=== PATIENT | male | born 1930 | race Caucasian/White ===

== ENCOUNTER 2018-07-06 18:17 | Inpatient (IN) | payer OTHER ==
[2018-07-06 18:39] VITALS: BMI 30.4
[2018-07-06] MEDS ORDERED: SODIUM CHLORIDE 2,722 ML IV ONE (19:01)
--- NOTE | 2018-07-06 20:15 | PDOC ---
History of Present Illness - General Chief Complaint: SIRS, Suspected/Possible Stated Complaint: WEAKNESS Time Seen by Provider: 07/06/18 19:00 - History of Present Illness Initial Comments: 07/06/18 20:16 88m with pmh of stroke, cholecystectomy, HTN, HLD, prewdiabetes?, BPH s/p circumcision due to phimosis and burt placement 1 month ago last changed 10 day ago, found by daughter to have generalized weakness today. Patient also complaining of protuberant abdomen. Past History - Past Medical History Allergies/Adverse Reactions: Allergies Allergy/AdvReac Type Severity Reaction Status Date / Time No Known Allergies Allergy Verified 07/06/18 18:39 Home Medications: Ambulatory Orders Enalapril Maleate 5 mg PO DAILY 07/06/18 Furosemide [Lasix] 40 mg PO DAILY 07/06/18 Paroxetine HCl [Paxil] 10 mg PO DAILY 07/06/18 Simvastatin 20 mg PO HS 07/06/18 Terazosin HCl 2 mg PO BID 07/06/18 CVA: Yes COPD: No HTN: Yes Hypercholesterolemia: Yes - Surgical History Cholecystectomy: Yes - Suicide/Smoking/Psychosocial Hx Smoking History: Former smoker Have you smoked in the past 12 months: No Information on smoking cessation initiated: No Hx Alcohol Use: No Drug/Substance Use Hx: No Review of Systems - Review of Systems Able to Perform ROS?: No (dementia) *Physical Exam - Vital Signs Last Vital Signs Temp Pulse Resp BP Pulse Ox 101.2 F H 110 H 20 108/55 L 95 07/06/18 18:26 07/06/18 18:26 07/06/18 18:26 07/06/18 18:26 07/06/18 18:26 - Physical Exam General Appearance: Yes: Appropriately Dressed, Obese. No: Apparent Distress HEENT: positive: EOMI, OPHELIA, Normal ENT Inspection Respiratory/Chest: positive: Lungs Clear, Normal Breath Sounds. negative: Chest Tender, Respiratory Distress Cardiovascular: positive: Tachycardia Gastrointestinal/Abdominal: positive: Normal Bowel Sounds, Flat, Soft, Protuberent, Distended. negative: Tender Male Genitalia: positive: other (inflammed glans, scant white discharge around penile skin folds, catheter in place. ) Musculoskeletal: positive: Normal Inspection. negative: CVA Tenderness Extremity: positive: Normal Capillary Refill, Normal Inspection Integumentary: positive: Normal Color, Dry, Warm Neurologic: positive: Alert, Normal Mood/Affect Moderate Sedation - Procedure Monitoring Vital Signs: Procedure Monitoring Vital Signs Temperature 101.2 F H 07/06/18 18:26 Pulse Rate 110 H 07/06/18 18:26 Respiratory Rate 20 07/06/18 18:26 Blood Pressure 108/55 L 07/06/18 18:26 O2 Sat by Pulse Oximetry (%) 95 07/06/18 18:26 ED Treatment Course - LABORATORY CBC & Chemistry Diagram: 07/06/18 20:11 07/06/18 20:11 - RADIOLOGY Radiology Studies Ordered: Category Date Time Status CHEST X-RAY PORTABLE* [RAD] Stat Radiology 07/06/18 19:01 Ordered Medical Decision Making - Medical Decision Making 07/06/18 20:30 88m with sepsis, probably from UTi. 07/06/18 22:12 Chemistry taking a long time to come back (issues with machine) but urine clearly shows signs or infection. Will treat complicated UTI (known urinary tract obstruction plus sepsis) with Meropenem and vancomycin to cover ESBL and MRSA. *DC/Admit/Observation/Transfer Diagnosis at time of Disposition: Sepsis - Discharge Dispostion Decision to Admit order: Yes - Referrals Referrals: Hakan Johnson MD [Primary Care Provider] - - Patient Instructions - Post Discharge Activity
[2018-07-06 20:32] LABS: VENOUS PC02 39.2 mmHg (38-52); VENOUS PH 7.4 (7.32-7.42); VENOUS PO2 32.8 mmHg (28-48)
[2018-07-06 20:37] LABS: BASO % 0.2 % (0-2.0); HEMATOCRIT 38.5 % (35.4-49); HEMOGLOBIN 13.1 GM/dL (11.7-16.9); MEAN CELL VOLUME 85.1 fl (80-96); MEAN PLT VOLUME 10.5 fl (7.5-11.1); MONO % 6.1 % (3.8-10.2); NEUT % 91.7 % (42.8-82.8); PLATELET COUNT 139 K/MM3 (134-434); RBC 4.52 M/mm3 (4.00-5.60); RDW 14.8 % (11.9-15.9)
--- NOTE | 2018-07-06 20:48 | PDOC ---
Attending Attestation - Resident Resident Name: MelaDiego - ED Attending Attestation I have performed the following: I have examined & evaluated the patient, The case was reviewed & discussed with the resident, I agree w/resident's findings & plan, Exceptions are as noted - HPI HPI: 07/06/18 20:47 The patient is a 88 year old male, with a significant PMH of stroke, cholecystectomy, hypertension, hyperlipidemia, prediabetes, BPH w/ burt, phimosis s/p circumcision, who presents to the emergency department with generalized weakness over the past 2-3 days. The patient denies chest pain, shortness of breath, headache and dizziness. Denies fever, chills, nausea, vomit, diarrhea and constipation. Denies dysuria, frequency, urgency and hematuria. Allergies: NKA - Physicial Exam PE: 07/06/18 20:48 GENERAL: Awake, alert, and fully oriented, in no acute distress. HEAD: No signs of trauma EYES: PERRLA, EOMI, sclera anicteric, conjunctiva clear ENT: Auricles normal inspection, hearing grossly normal, nares patent, oropharynx clear without exudates. Moist mucosa NECK: Nontender, no stepoffs, Normal ROM, supple, no lymphadenopathy, JVD, or masses LUNGS: Breath sounds equal, clear to auscultation bilaterally. No wheezes, and no crackles HEART: Regular rate and rhythm, normal S1 and S2, no murmurs, rubs or gallops ABDOMEN: Soft, nontender, normoactive bowel sounds. No guarding, no rebound. No masses EXTREMITIES: Normal range of motion, no edema. No clubbing or cyanosis. No cords, erythema, or tenderness NEUROLOGICAL: Cranial nerves II through XII intact. 5/5 strength and sensation in all extremities, Normal speech, normal gait, normal cerebellar function SKIN: Warm, Dry, normal turgor, no rashes or lesions noted. - Critical Care Time Total Critical Care Time: 60 Critical Care Statement: The care of this patient involved high complexity decision making to prevent further life threatening deterioration of the patient 's condition and/or to evaluate & treat vital organ system(s) failure or risk of failure. - Medical Decision Making 07/06/18 20:48 88 M with weakness, found to be febrile and tachycardic. Suspect urinary source as pt has indwelling burt. - Labs, cultures - CXR, UA - IVF, tylenol, abx UA + for UTI Trop 0.30, suspect 2/2 demand ischemia from sepsis
[2018-07-06 20:50] LABS: INR 1.15 (0.83-1.09); PROTHROMBIN TIME (PATIENT) 13.6 SEC (9.7-13.0)
[2018-07-06 20:52] LABS: ACTIVATED PTT 27.3 SECONDS (25.2-36.5)
[2018-07-06 20:55] LABS: URINE APPEARANCE SLCLOUDY; URINE BILIRUBIN NEGATIVE (<2.0 mg/dL); URINE COLOR LTYELLOW; URINE GLUCOSE (UA) NEGATIVE (NEGATIVE); URINE KETONE NEGATIVE (NEGATIVE); URINE LEUK ESTERASE 2+ (NEGATIVE); URINE NITRITE NEGATIVE (NEGATIVE); URINE PROTEIN NEGATIVE (NEGATIVE)
[2018-07-06 20:56] LABS: URINE HYALINE CAST 1 /lpf; URINE MUCUS RARE
[2018-07-06 21:06] LABS: ANISOCYTOSIS 1+; MACROCYTOSIS 1+
[2018-07-06 21:07] LABS: PLATELET ESTIMATE ADEQUATE
[2018-07-06] MEDS ORDERED: MEROPENEM 1 GM in DEXTROSE 5%-WATER 100 ML IVPB ONE (21:09)
[2018-07-06] MEDS ORDERED: VANCOMYCIN 1,250 MG in DEXTROSE 5%-WATER - 250 ML IVPB ONE (21:10)
[2018-07-06 22:16] LABS: ALBUMIN 3.2 g/dl (3.4-5.0); ANION GAP 8 MMOL/L (8-16); BLOOD UREA NITROGEN 43 mg/dL (7-18); CALCIUM 8.5 mg/dL (8.5-10.1); CHLORIDE 108 mmol/L (98-107); CO2 25 mmol/L (21-32); GLUCOSE,RANDOM 143 mg/dL (74-106); POTASSIUM 4.1 mmol/L (3.5-5.1); SODIUM 141 mmol/L (136-145)
[2018-07-06 22:17] LABS: ALK PHOS 95 U/L (45-117); BILIRUBIN,TOTAL 0.7 mg/dL (0.2-1); SGOT/AST 22 U/L (15-37); SGPT/ALT 29 U/L (13-61)
[2018-07-06] MEDS ORDERED: LACTATED RINGERS SOLUTION 1,000 ML/1,000 ML INFUS.BAG IV SCH ×2 (23:00→23:40)
--- NOTE | 2018-07-06 23:00 | PN ---
Teaching Attending Note Name of Resident: Harper Nettles ATTENDING PHYSICIAN STATEMENT I saw and evaluated the patient. I reviewed the resident's note and discussed the case with the resident. I agree with the resident's findings and plan as documented. SUBJECTIVE: Seen and examined; please refer to the resident note for further historical information. Briefly, this is a 88 y/o male presenting to the ER with family who have unfortunately left by the time I got down there. He is found to have sepsis likely 2/2 UTI with chronic burt (2/2 obstruction placed within the past month). He is AAO and conversational but is forgetful and a poor historian and he is unable to give any reasons as to why he is here, stating that his family wanted him to come in. He actually has no complaints and states that he feels 'fine.' In the ER he was given broad spectrum abx and aggressively hydrated which did improve his tachycardia. Urology was contacted by the ER and will see patient in the AM. We spoke to the family over the phone and they revealed that he had phimosis and several procedures and eventually opted for circumcision. 10 sys ROS done and negative aside from HPI PMH, PSH, Family hx, Social hx reviewed Medication reconciliation pending OBJECTIVE: VS, labs, imaging reviewed NAD, AAO, Resting comfortably in bed NC AT EOMI PERRLA Slightly tachy with regular rhythm no deepak mgr Lungs CTAB, w/ sym exp NT ND +BS; he has a large abdomen but states it always looks like this. CN2-12 wnl, no fnd Normal mood, appropriate affect CXR reviewed; final report pending EKG reviewed ASSESSMENT AND PLAN: Patient presents to the ER with sepsis 2/2 UTI 1) Sepsis 2/2 UTI -Hydrated in the ER; will continue him on fluids with LR @100cc an hour and closely monitor his fluid status. He will be given merrem BID and vancomycin with pharmacy to dose (per guidelines on up to date with UTI with obstruction in the setting of sepsis). He is at risk for resistent organisms given his burt, etc. Urology was called and will see patient tomorrow; likely will need burt exchange. 2) Elevated Troponin -No chest pain or SOB; likely 2/2 demand in the setting of sepsis with diminished renal function. Low suspicion this represents a primary ACS process. We will need to review his old records for any prior cardiac history, place him on telemetry, and trend his troponins. We will also check an echo to rule out any wma's, etc. Consider CV consult if warranted 3) Obstruction 2/2 BPH -Continue home meds; urology to see 4) Elevated Cr -Ascertain his baseline, but given septic presentation good chance this is AURELIA. Check urine cr, lytes and check GLADYS. Hydrated. Repeat BMp. 5) Hx Stroke -Continue home medications; no new sx. Remote 6) H
--- NOTE | 2018-07-07 02:39 | HP ---
CHIEF COMPLAINT:generalized weakness PCP:Dr. Carrillo HISTORY OF PRESENT ILLNESS: Patient is an 88 year old male with past medical history of CVA, HTN, HLD, pre- DM, BPH with burt (May 2018) and phimosis s/p circumcision (2 weeks ago), presented with generalized weakness for 1 day. Patient has no complaints, he reports that his daughter thinks he was weaker and so brought him in. As per the daughter, patient's Terazosin dose was increased recently and since then daughter noted patient had been "weaker", having a harder time walking the steps. Yesterday, patient had no strength to sit and stand up at all that he needed to call for help. Daughter tried to call Dr. Meza's office, as they had a follow-up procedure on the Jul 10 for his BPH, and was recommended to come to the ED. Upon arrival at the ED, patient was noted to be tachycardic and febrile. Patient denies any fever, chills, loss of appetite, headache, dizziness , nausea, vomiting, chest pain, SOB, palpitations, abdominal pain, diarrhea, numbness, tingling. ER course was notable for: (1)WBC 23, BUN/Cr 43/2, UA: 2+blood, 2+LE, 28 WBC (2)Trop 0.3, lactic acid 1.8 (3)Meropenem 1gm, Vanc 1250mg, IV NS [id number] given Recent Travel:denies PAST MEDICAL HISTORY: CVA (with residual left side deficit) HTN HLD pre-DM BPH with burt (May 2018) phimosis s/p circumcision (2 weeks ago) PAST SURGICAL HISTORY: carotid endarterectomy (2004) cholecystectomy circumcision (2018) Social History: Smoking: previous smoker, 1ppd >40 years, quit 30 years ago Alcohol:occasional Drugs: denies Lives with daughter and family Family History:noncontributory Allergies No Known Allergies Allergy (Verified 07/06/18 18:39) HOME MEDICATIONS: Home Medications Medication Instructions Recorded Enalapril Maleate 5 mg PO DAILY 07/06/18 Furosemide [Lasix] 40 mg PO DAILY 07/06/18 Paroxetine HCl [Paxil] 10 mg PO DAILY 07/06/18 Simvastatin 20 mg PO HS 07/06/18 Terazosin HCl 2 mg PO BID 07/06/18 REVIEW OF SYSTEMS CONSTITUTIONAL: generalized weakness Absent: fever, chills, diaphoresis, malaise, loss of appetite, weight change HEENT: Absent: rhinorrhea, nasal congestion, throat pain, throat swelling, difficulty swallowing, mouth swelling, ear pain, eye pain, visual changes CARDIOVASCULAR: Absent: chest pain, syncope, palpitations, irregular heart rate, lightheadedness , peripheral edema RESPIRATORY: Absent: cough, shortness of breath, dyspnea with exertion, orthopnea, wheezing, stridor, hemoptysis GASTROINTESTINAL: Absent: abdominal pain, abdominal distension, nausea, vomiting, diarrhea, constipation, melena, hematochezia GENITOURINARY: Absent: dysuria, frequency, urgency, hesitancy, hematuria, flank pain, genital pain MUSCULOSKELETAL: Absent: myalgia, arthralgia, joint swelling, back pain, neck pain SKIN: Absent: rash, itching, pallor HEMATOLOGIC/IMMUNOLOGIC: Absent: easy bleeding, easy bruising, lymphadenopathy, frequent infections ENDOCRINE: Absent: unexplained weight gain, unexplained weight loss, heat intolerance, cold intolerance NEUROLOGIC: Absent: headache, focal weakness or paresthesias, dizziness, unsteady gait, seizure, mental status changes, bladder or bowel incontinence PSYCHIATRIC: Absent: anxiety, depression, suicidal or homicidal ideation, hallucinations. PHYSICAL EXAMINATION Vital Signs - 24 hr 07/06/18 07/06/18 07/06/18 18:26 21:20 23:21 Temperature 101.2 F H 101.5 F H Pulse Rate 110 H Pulse Rate [ 95 H Left Radial] Respiratory 20 18 Rate Blood Pressure 108/55 L Blood Pressure 109/44 L [Left Arm] O2 Sat by Pulse 95 98 Oximetry (%) 07/07/18 02:16 Temperature 97.9 F Pulse Rate 95 H Pulse Rate [ Left Radial] Respiratory 18 Rate Blood Pressure 128/57 L Blood Pressure [Left Arm] O2 Sat by Pulse 100 Oximetry (%) GENERAL: Awake, alert, and fully oriented, in no acute distress. HEAD: Normal with no signs of trauma. EYES: PERRLA, EOMI, sclera anicteric, conjunctiva clear. EARS, NOSE, THROAT: Ears normal, oropharynx clear without exudates. Dry mucous membranes. NECK: Normal range of motion, supple without lymphadenopathy, JVD, or masses. LUNGS: +bibasilar crackles HEART: Regular rate and rhythm, normal S1 and S2 without murmur, rub or gallop. ABDOMEN: Soft, nontender, not distended, normoactive bowel sounds. MUSCULOSKELETAL: Normal range of motion at all joints. No bony deformities or tenderness. No CVA tenderness. UPPER EXTREMITIES: 2+ pulses, warm, well-perfused. No peripheral edema. LOWER EXTREMITIES: 2+ pulses, warm, well-perfused. No peripheral edema. NEUROLOGICAL: Cranial nerves II-XII intact. Motor strength 5/5, sensation intact. Normal speech. Gait not observed. PSYCHIATRIC: Cooperative. Good eye contact. Appropriate mood and affect. SKIN: Warm, dry, normal turgor, no rashes or lesions noted. Laboratory Results - last 24 hr 07/06/18 07/06/18 07/06/18 20:11 20:11 20:11 WBC 23.0 H RBC 4.52 Hgb 13.1 Hct 38.5 MCV 85.1 MCH 29.0 MCHC 34.0 RDW 14.8 Plt Count 139 MPV 10.5 Absolute Neuts (auto) 21.1 H Neutrophils % 91.7 H Neutrophils % (Manual) 90.0 H Band Neutrophils % 6.0 Lymphocytes % 2.0 L Lymphocytes % (Manual) 2.0 L Monocytes % 6.1 Monocytes % (Manual) 2 L Eosinophils % 0.0 Basophils % 0.2 Nucleated RBC % 0 Platelet Estimate Adequate Platelet Comment No clumping noted Anisocytosis 1+ Macrocytosis 1+ PT with INR 13.60 H INR 1.15 H PTT (Actin FS) 27.3 VBG pH 7.40 POC VBG pCO2 39.2 POC VBG pO2 32.8 Mixed VBG HCO3 24.0 Sodium Potassium Chloride Carbon Dioxide Anion Gap BUN Creatinine Creat Clearance w eGFR Random Glucose Lactic Acid Calcium Total Bilirubin AST ALT Alkaline Phosphatase Troponin I Total Protein Albumin Prealbumin Urine Color Urine Appearance Urine pH Ur Specific [place] Urine Protein Urine Glucose (UA) Urine Ketones Urine Blood Urine Nitrite Urine Bilirubin Urine Urobilinogen Ur Leukocyte Esterase Urine WBC (Auto) Urine RBC (Auto) Hyaline Casts Urine Mucus Influenza A (Rapid) Influenza B (Rapid) 07/06/18 07/06/18 07/06/18 20:11 20:11 20:11 WBC RBC Hgb Hct MCV MCH MCHC RDW Plt Count MPV Absolute Neuts (auto) Neutrophils % Neutrophils % (Manual) Band Neutrophils % Lymphocytes % Lymphocytes % (Manual) Monocytes % Monocytes % (Manual) Eosinophils % Basophils % Nucleated RBC % Platelet Estimate Platelet Comment Anisocytosis Macrocytosis PT with INR INR PTT (Actin FS) VBG pH POC VBG pCO2 POC VBG pO2 Mixed VBG HCO3 Sodium 141 Potassium 4.1 Chloride 108 H Carbon Dioxide 25 Anion Gap 8 BUN 43 H Creatinine 2.0 H Creat Clearance w eGFR 31.62 Random Glucose 143 H Lactic Acid 1.8 Calcium 8.5 Total Bilirubin 0.7 AST 22 ALT 29 Alkaline Phosphatase 95 Troponin I 0.30 H Total Protein 6.0 L Albumin 3.2 L Prealbumin Urine Color Urine Appearance Urine pH Ur Specific [place] Urine Protein Urine Glucose (UA) Urine Ketones Urine Blood Urine Nitrite Urine Bilirubin Urine Urobilinogen Ur Leukocyte Esterase Urine WBC (Auto) Urine RBC (Auto) Hyaline Casts Urine Mucus Influenza A (Rapid) Influenza B (Rapid) 07/06/18 07/07/18 07/07/18 20:27 00:11 00:29 WBC RBC Hgb Hct MCV MCH MCHC RDW Plt Count MPV Absolute Neuts (auto) Neutrophils % Neutrophils % (Manual) Band Neutrophils % Lymphocytes % Lymphocytes % (Manual) Monocytes % Monocytes % (Manual) Eosinophils % Basophils % Nucleated RBC % Platelet Estimate Platelet Comment Anisocytosis Macrocytosis PT with INR INR PTT (Actin FS) VBG pH POC VBG pCO2 POC VBG pO2 Mixed VBG HCO3 Sodium Potassium Chloride Carbon Dioxide Anion Gap BUN Creatinine Creat Clearance w eGFR Random Glucose Lactic Acid Calcium Total Bilirubin AST ALT Alkaline Phosphatase Troponin I Total Protein Albumin Prealbumin 23.6 Urine Color Ltyellow Urine Appearance Slcloudy Urine pH 5.0 Ur Specific [place] 1.012 Urine Protein Negative Urine Glucose (UA) Negative Urine Ketones Negative Urine Blood 2+ H Urine Nitrite Negative Urine Bilirubin Negative Urine Urobilinogen 2.0 Ur Leukocyte Esterase 2+ H Urine WBC (Auto) 28 Urine RBC (Auto) 2 Hyaline Casts 1 Urine Mucus Rare Influenza A (Rapid) Negative Influenza B (Rapid) Negative ASSESSMENT/PLAN: Patient is an 88 year old male with past medical history of CVA, HTN, HLD, pre- DM, BPH with burt (May 2018) and phimosis s/p circumcision (2 weeks ago), presented with generalized weakness for 1 day. #Sepsis likely 2/2 UTI -IV meropenem and IV vanc given at the ED. -In light of chronic burt, consider ESBL organisms -will continue meropenem and Vanc, renally dosed -Blood cultures -Urine cultures -ID (Dr. Cook) consulted. -Urology (Dr. Hernandez) consulted. -IV fluids -Tylenol 650mg PRN #Elevated troponin -Trop 0.3 -likely 2/2 demand ischemia -will trend trops and EKG #AURELIA vs CKD -BUN/Cr 43/2 -Unknown baseline kidney function -Will hold Enalapril and lasix -Avoid NSAIDs, Aminoglycosides, contrast agents -Renal/pelvic US #?hx of CHF -hold home Lasix 40mg -will do gentle hydration -daily weights -Echo #HTN:chronic -will hold Enalapril -continue to monitor BP #HLD -Continue home Simvastatin 20mg daily #FEN -IV LR -Electrolytes wnl, routine bmp monitoring -Sodium controlled diet #Prophylaxis -Heparin 5000units sq tid #Disposition -full code -admit to tele Visit type - Emergency Visit Emergency Visit: Yes ED Registration Date: 07/06/18 Care time: The patient presented to the Emergency Department on the above date and was hospitalized for further evaluation of their emergent condition. - New Patient This patient is new to me today: Yes Date on this admission: 07/09/18 - Critical Care Critical Care patient: No
[2018-07-07] MEDS: HEPARIN NA (PORCINE) 5,000 UNITS/ML 1ML VIAL SQ SCH ×3 (06:01→22:13)
[2018-07-07 08:11] LABS: BASO % 0.4 % (0-2.0); EOS % 0.3 % (0-4.5); HEMATOCRIT 34.9 % (35.4-49); HEMOGLOBIN 11.9 GM/dL (11.7-16.9); LYMPH % 5.3 % (8-40); MCH 29.2 pg (25.7-33.7); MCHC 34.1 g/dl (32.0-35.9); MEAN CELL VOLUME 85.9 fl (80-96); MEAN PLT VOLUME 10.3 fl (7.5-11.1); MONO % 7.7 % (3.8-10.2); NEUT % 86.3 % (42.8-82.8); PLATELET COUNT 116 K/MM3 (134-434); RBC 4.07 M/mm3 (4.00-5.60); RDW 14.8 % (11.9-15.9); WHITE BLOOD COUNT 19.5 K/mm3 (4.0-10.0)
--- NOTE | 2018-07-07 08:54 | PN ---
Progress Note (short form) - Note Progress Note: CBC, BMP 07/07/18 07:00 07/07/18 07:00 Vital Signs Period Temp Pulse Resp BP Sys/Leon Pulse Ox Last 24 Hr 97.9 F-101.5 F 82-95 18-25 96-128/44-64 98-100 S1S2 RRR lungs cta abd soft non tender burt with dark urine tr edema awake, alert oriented to place and self, very poor historian offers no new complaints admitted for increased fatigue and confusion due to urinary sepsis indwelling burt catheter fpr past 1 months circumcision 2 weeks ago cont ic fluids iv abx consult for burt care repeat troponin was increased so he was transferred to icu for monitoring does not have any complaints at present echo is unremarkable repeat troponin until downward trend, likely due to cardiac strain d/w daughter pt is full code
[2018-07-07 09:09] LABS: ALBUMIN 2.7 g/dl (3.4-5.0); ALK PHOS 76 U/L (45-117); ANION GAP 8 MMOL/L (8-16); BLOOD UREA NITROGEN 38 mg/dL (7-18); CALCIUM 7.9 mg/dL (8.5-10.1); CHLORIDE 110 mmol/L (98-107); CO2 23 mmol/L (21-32); CREATININE 1.8 mg/dL (0.55-1.3); GLUCOSE,RANDOM 106 mg/dL (74-106); MAGNESIUM 1.9 mg/dL (1.8-2.4); PHOSPHOROUS 2.3 mg/dL (2.5-4.9); SGOT/AST 40 U/L (15-37); SGPT/ALT 27 U/L (13-61); SODIUM 140 mmol/L (136-145); TOT PROT 5.2 g/dl (6.4-8.2)
[2018-07-07] MEDS ORDERED: PT OWN MED DRAWER 7, Y5N ONE (09:25)
[2018-07-07] MEDS: PARoxetine HCL 10 MG TABLET (FP) PO SCH (09:46)
[2018-07-07] MEDS ORDERED: MEROPENEM 1 GM in DEXTROSE 5%-WATER 100 ML IVPB SCH (10:00)
[2018-07-07] MEDS ORDERED: MEROPENEM 1 GM in DEXTROSE 5%-WATER 100 ML IVPB ONE (10:00)
--- NOTE | 2018-07-07 10:36 | ECHO ---
Name: LUISGISSELLE, JR Exam:Adult Echocardiogram Study Date: 07/07/2018 08:09 AM Age: 88 yrs Reason For Study: ELEVATED TROPS Height: 68 in Weight: 200 lb BSA: 2.0 m2 MMode/2D Measurements & Calculations IVSd: 1.1 cm Ao root diam: 3.2 cm LVIDd: 3.5 cm LA dimension: 2.6 cm LVIDs: 2.6 cm LVPWd: 1.0 cm EDV(Teich): 52.5 ml LAV (MOD-bp): 42.6 ml ESV(Teich): 24.0 ml Doppler Measurements & Calculations MV E max mauri: 113.0 cm/sec MV A max mauri: 111.6 cm/sec MV dec slope: 700.8 cm/sec2 MV E/A: 1.0 TR max mauri: 211.7 cm/sec Med Peak E' Mauri: 5.8 cm/sec TR max P.9 mmHg Med E/e': 19.6 Lat Peak E' Mauri: 6.5 cm/sec Lat E/e': 17.3 Left Ventricle There is mild concentric left ventricular hypertrophy. The left ventricle is hyperdynamic. Right Ventricle The right ventricle is normal in size and function. Atria Normal left and right atrial size and function. Mitral Valve There is mild mitral annular calcification. There is no mitral valve stenosis. There is no mitral regurgitation noted. Tricuspid Valve The tricuspid valve is normal in structure and function. There is mild tricuspid regurgitation. Aortic Valve There is mild aortic sclerosis.;. No hemodynamically significant valvular aortic stenosis. No aortic regurgitation is present. Pulmonic Valve The pulmonic valve is not well seen, but is grossly normal. There is no pulmonic valvular stenosis. T here is no pulmonic valvular regurgitation. Great Vessels The aortic root is normal size. Pericardium/Pleura There is no pericardial effusion. Interpretation Summary There is mild concentric left ventricular hypertrophy. The left ventricle is hyperdynamic. The right ventricle is normal in size and function. There is mild mitral annular calcification. There is mild tricuspid regurgitation. There is mild aortic sclerosis.; There is no pericardial effusion. MD Wadsworth *Jeffrey 07/07/2018 10:36 AM
--- NOTE | 2018-07-07 11:32 | EKG ---
Test Reason : Blood Pressure : / mmHG Vent. Rate : 094 BPM Atrial Rate : 094 BPM P-R Int : 194 ms QRS Dur : 112 ms QT Int : 378 ms P-R-T Axes : 081 -67 042 degrees QTc Int : 472 ms SINUS RHYTHM WITH PREMATURE SUPRAVENTRICULAR COMPLEXES LEFT AXIS DEVIATION LOW VOLTAGE QRS RIGHT BUNDLE BRANCH BLOCK INFERIOR INFARCT , AGE UNDETERMINED ABNORMAL ECG NO PREVIOUS ECGS AVAILABLE Confirmed by JEANNIE ROBBINS MD ([id number]) on 07/07/2018 11:32:21 AM Referred By: Confirmed By:JEANNIE ROBBINS MD
[2018-07-07 11:58] LABS: PLATELET ESTIMATE DECREASED
--- NOTE | 2018-07-07 12:19 | CON.ID ---
Consult Consult Specialty:: infectious diseases Referred by:: Reason for Consultation:: urosepsis,septic picture. ams - History of Present Illness Chief Complaint: weakness and lethargy History of Present Illness: 88 year old male with past medical history of CVA, HTN, HLD, pre-DM, BPH with burt (May 2018) and phimosis s/p circumcision (2 weeks ago), presented with generalized weakness for 1 day. Patient has no complaints, he reports that his daughter thinks he was weaker and so brought him in. As per the daughter, patient's Terazosin dose was increased recently and since then daughter noted patient had been "weaker", having a harder time walking the steps. Yesterday, patient had no strength to sit and stand up at all that he needed to call for help. at the ED, patient was noted to be tachycardic and febrile. Patient denies any fever, chills, loss of appetite, headache, dizziness, nausea, vomiting, chest pain, SOB, palpitations, abdominal pain, diarrhea, numbness, tingling. currently patient feels better on work up patient was noted to ahve very high wbc daughter in the room giving most of the history patient has indwelling catheter with darkish urine and also on work up tropinins were increased patient was started on meropenam patient was aggressively hydrated - History Source History Provided By: Patient, Family Member Limitations to Obtaining History: Poor Historian - Alcohol/Substance Use Hx Alcohol Use: No - Smoking History Smoking history: Former smoker Have you smoked in the past 12 months: No Home Medications - Allergies Allergies/Adverse Reactions: Allergies Allergy/AdvReac Type Severity Reaction Status Date / Time No Known Allergies Allergy Verified 07/06/18 18:39 - Home Medications Home Medications: Ambulatory Orders Enalapril Maleate 5 mg PO DAILY 07/06/18 Furosemide [Lasix] 40 mg PO DAILY 07/06/18 Paroxetine HCl [Paxil] 10 mg PO DAILY 07/06/18 Simvastatin 20 mg PO HS 07/06/18 Terazosin HCl 2 mg PO BID 07/06/18 Review of Systems - Review of Systems Constitutional: reports: No Symptoms Eyes: reports: No Symptoms HENT: reports: No Symptoms Neck: reports: No Symptoms Cardiovascular: reports: No Symptoms Respiratory: reports: No Symptoms Gastrointestinal: reports: No Symptoms Genitourinary: reports: No Symptoms Musculoskeletal: reports: No Symptoms Integumentary: reports: No Symptoms Neurological: reports: Incoordination, Weakness Endocrine: reports: No Symptoms Hematology/Lymphatic: reports: No Symptoms Psychiatric: reports: No Symptoms Physical Exam Vital Signs: Vital Signs Temperature 98.7 F 07/07/18 12:11 Pulse Rate 82 07/07/18 12:11 Respiratory Rate 20 07/07/18 12:11 Blood Pressure 100/55 L 07/07/18 12:11 O2 Sat by Pulse Oximetry (%) 100 07/07/18 08:00 Constitutional: Yes: Well Nourished, No Distress, Calm Cardiovascular: Yes: Regular Rate and Rhythm Respiratory: Yes: Regular, CTA Bilaterally Gastrointestinal: Yes: Normal Bowel Sounds, Soft Renal/: Yes: Burt Present Musculoskeletal: Yes: WNL Extremities: Yes: WNL Neurological: Yes: Alert, Oriented Psychiatric: Yes: Alert, Oriented Labs: CBC, BMP 07/07/18 07:00 07/07/18 07:00 Imaging - Results Chest X-ray: Report Reviewed, Image Reviewed Ultrasound: Report Reviewed, Image Reviewed Assessment/Plan Patient is an 88 year old male with past medical history of CVA, HTN, HLD, pre- DM, BPH with burt (May 2018) and phimosis s/p circumcision (2 weeks ago), presented with generalized weakness for 1 day. patient probably had symptoms due to sepsis due to uti as well as he very well could have prostatic infection all cx have been send and pending sepsis uti increaed troponin r/o prostatitis dehydration leukocytosis plan will start him on zosyn hydration as needed rest continue as per icu ct current mgmt monitor wbc cc 40 min
[2018-07-07 12:37] LABS: ANISOCYTOSIS 1+; MACROCYTOSIS 1+
[2018-07-07] MEDS ORDERED: PIPERACILLIN/TAZOBACTAM 2.25 GM VIAL IVPB ONE (13:38)
[2018-07-07] MEDS ORDERED: DEXTROSE 5%-WATER - 50 ML IVPB ONE (13:38)
[2018-07-07] MEDS: PIPERACILLIN/TAZOB 2.25 GM 2.25 GM in DEXTROSE 5%-WATER - 50 ML IVPB SCH (14:21)
[2018-07-07] MEDS: DEXTROSE 5%-0.45% SALINE 1,000 ML IV SCH (18:00)
--- NOTE | 2018-07-07 19:48 | CON.GU ---
Consult Consult Specialty:: Referred by:: medicine Reason for Consultation:: urinary retention, UTI - History of Present Illness Chief Complaint: urinary retention, UTI History of Present Illness: 88 year old male with chronic urinary retention with a burt who is scheduled for a TURP in the next few weeks presents to [facility] [place]ension [place] [id number]. patient has been transferred to ICU - Past Medical History Renal/: Yes: BPH, UTI, Other (urinary retention) - Alcohol/Substance Use Hx Alcohol Use: No - Smoking History Smoking history: Former smoker Have you smoked in the past 12 months: No Home Medications - Allergies Allergies/Adverse Reactions: Allergies Allergy/AdvReac Type Severity Reaction Status Date / Time No Known Allergies Allergy Verified 07/06/18 18:39 - Home Medications Home Medications: Ambulatory Orders Enalapril Maleate 5 mg PO DAILY 07/06/18 Furosemide [Lasix] 40 mg PO DAILY 07/06/18 Paroxetine HCl [Paxil] 10 mg PO DAILY 07/06/18 Simvastatin 20 mg PO HS 07/06/18 Terazosin HCl 2 mg PO BID 07/06/18 Review of Systems - Review of Systems Constitutional: reports: Fever, Lethargy, Malaise, Weakness Genitourinary: reports: Dysuria, Other (retention). denies: Flank Pain, Hematuria Physical Exam- Vital Signs: Vital Signs Temperature 98.5 F 07/07/18 18:44 Pulse Rate 83 07/07/18 18:44 Respiratory Rate 20 07/07/18 18:44 Blood Pressure 105/64 07/07/18 18:44 O2 Sat by Pulse Oximetry (%) 100 07/07/18 08:00 Renal/: Yes: Burt Present. No: Bladder Distention, CVA Tenderness - Left, CVA Tenderness - Right, Hematuria, Incontinence Labs: CBC, BMP 07/07/18 07:00 07/07/18 07:00 Imaging - Results Ultrasound: Report Reviewed Problem List - Problems (1) Urinary retention due to benign prostatic hyperplasia Assessment/Plan: burt catheter changed. continue abx. plan for TURP once infection is cleared with Dr. Thomas Code(s): N40.1 - BENIGN PROSTATIC HYPERPLASIA WITH LOWER URINARY TRACT SYMP; R33.8 - OTHER RETENTION OF URINE (2) UTI (urinary tract infection) due to urinary indwelling catheter Code(s): T83.511A - I/I REACT D/T INDWELLING URETHRAL CATHETER, INIT; N39.0 - URINARY TRACT INFECTION, SITE NOT SPECIFIED
[2018-07-07] MEDS: ACETAMINOPHEN 325 MG TABLET (FP) PO PRN (20:18)
[2018-07-07] MEDS: ATORVASTATIN CA 10 MG TABLET (FP) PO SCH (22:15)
[2018-07-08] MEDS ORDERED: PIPERACILLIN/TAZOBACTAM 2.25 GM VIAL IVPB ONE ×4 (02:33→21:18)
[2018-07-08] MEDS ORDERED: DEXTROSE 5%-WATER - 50 ML IVPB ONE ×4 (02:33→21:18)
[2018-07-08] MEDS: PIPERACILLIN/TAZOB 2.25 GM 2.25 GM in DEXTROSE 5%-WATER - 50 ML IVPB SCH ×5 (02:38→21:24)
[2018-07-08] MEDS: HEPARIN NA (PORCINE) 5,000 UNITS/ML 1ML VIAL SQ SCH ×3 (06:11→21:25)
[2018-07-08 06:53] LABS: ALBUMIN 2.6 g/dl (3.4-5.0); ALK PHOS 82 U/L (45-117); ANION GAP 8 MMOL/L (8-16); BILIRUBIN,TOTAL 1.1 mg/dL (0.2-1); BLOOD UREA NITROGEN 41 mg/dL (7-18); CALCIUM 7.8 mg/dL (8.5-10.1); CHLORIDE 106 mmol/L (98-107); CO2 24 mmol/L (21-32); CREATININE 2.1 mg/dL (0.55-1.3); GLUCOSE,RANDOM 122 mg/dL (74-106); POTASSIUM 3.7 mmol/L (3.5-5.1); SGOT/AST 42 U/L (15-37); SGPT/ALT 37 U/L (13-61); SODIUM 139 mmol/L (136-145); TOT PROT 5.1 g/dl (6.4-8.2)
[2018-07-08 07:03] LABS: BASO % 0.3 % (0-2.0); EOS % 1.9 % (0-4.5); HEMATOCRIT 33.2 % (35.4-49); HEMOGLOBIN 11.3 GM/dL (11.7-16.9); LYMPH % 5.4 % (8-40); MCH 28.9 pg (25.7-33.7); MCHC 33.9 g/dl (32.0-35.9); MEAN CELL VOLUME 85.3 fl (80-96); MEAN PLT VOLUME 10.3 fl (7.5-11.1); MONO % 6.2 % (3.8-10.2); NEUT % 86.2 % (42.8-82.8); PLATELET COUNT 124 K/MM3 (134-434); RDW 14.7 % (11.9-15.9); WHITE BLOOD COUNT 17.4 K/mm3 (4.0-10.0)
[2018-07-08] MEDS ORDERED: PT OWN MED DRAWER 7, Y5N ONE (09:09)
[2018-07-08] MEDS: PARoxetine HCL 10 MG TABLET (FP) PO SCH (09:13)
--- NOTE | 2018-07-08 10:16 | CON.CARD ---
Consult Consult Specialty:: cardiology Reason for Consultation:: elevated TNI; weakness - History of Present Illness Chief Complaint: Pt A&Ox3; no chest pain or dyspnea; feels weak. Pt's daugther is at bedside. History of Present Illness: he patient is an 88 year old male, with a significant PMH of stroke, cholecystectomy, hypertension, hyperlipidemia, prediabetes, BPH w/ burt, phimosis s/p circumcision, anxiety, who presents to the emergency department with generalized weakness over the past 2-3 days. Noted to have elevated TNI on admission. The patient denies chest pain, shortness of breath, headache and dizziness. Denies fever, chills, nausea, vomit, diarrhea and constipation. Denies dysuria, frequency, urgency and hematuria. Allergies: NKA - History Source History Provided By: Patient, Family Member, Medical Record Limitations to Obtaining History: No Limitations - Past Medical History ADMINISTRATIVE MANAGER: Yes: CVA Cardio/Vascular: Yes: HTN, Hyperlipdemia Renal/: Yes: BPH, UTI, Other (urinary retention) Psych: Yes: Anxiety - Alcohol/Substance Use Hx Alcohol Use: No - Smoking History Smoking history: Former smoker Have you smoked in the past 12 months: No Home Medications - Allergies Allergies/Adverse Reactions: Allergies Allergy/AdvReac Type Severity Reaction Status Date / Time No Known Allergies Allergy Verified 07/06/18 18:39 - Home Medications Home Medications: Ambulatory Orders Enalapril Maleate 5 mg PO DAILY 07/06/18 Furosemide [Lasix] 40 mg PO DAILY 07/06/18 Paroxetine HCl [Paxil] 10 mg PO DAILY 07/06/18 Simvastatin 20 mg PO HS 07/06/18 Terazosin HCl 2 mg PO BID 07/06/18 Family Disease History - Family Disease History Family History: Denies Review of Systems - Review of Systems Constitutional: reports: Weakness Eyes: reports: No Symptoms HENT: reports: No Symptoms Neck: reports: No Symptoms Cardiovascular: reports: No Symptoms Respiratory: reports: No Symptoms Gastrointestinal: reports: No Symptoms Genitourinary: reports: Incontinence, Urgency Breasts: reports: No Symptoms Reported Musculoskeletal: reports: Muscle Weakness Integumentary: reports: No Symptoms Neurological: reports: Weakness Endocrine: reports: No Symptoms Hematology/Lymphatic: reports: No Symptoms Psychiatric: reports: Anxiety - Risk Factors Known Risk Factors: Yes: Age, Hypercholesterolemia, Prior IN /Emb Stroke Vital Signs: Vital Signs Temperature 98.4 F 07/08/18 02:00 Pulse Rate 75 07/08/18 09:39 Respiratory Rate 20 07/08/18 09:39 Blood Pressure 101/51 L 07/08/18 09:39 O2 Sat by Pulse Oximetry (%) 100 07/08/18 08:38 Constitutional: Yes: Anxious Eyes: Yes: WNL HENT: Yes: WNL Neck: Yes: WNL Respiratory: Yes: WNL Gastrointestinal: Yes: Soft Renal/: Yes: Burt Present. No: Anuria Cardiovascular: Yes: Regular Rate and Rhythm JVD: No Carotid Bruit: No PMI: Non-Displaced Heart Sounds: Yes: S1, Split S2 Musculoskeletal: Yes: Muscle Weakness Extremities: Yes: Cool Edema: No Peripheral Pulses WNL: Yes Integumentary: Yes: WNL Neurological: Yes: Weakness Psychiatric: Yes: WNL - Other Data Labs, Other Data: CBC, BMP 07/08/18 05:30 07/08/18 05:30 INR, PTT INR 1.15 (0.83-1.09) H 07/06/18 20:11 Troponin, BNP 07/08/18 05:30 Troponin I 0.31 H Troponin, BNP 07/08/18 05:30 Troponin I 0.31 H Echo: Report Reviewed (Normal LVEF; mild LVH; mild TR) Ejection Fraction %: LVEF > or = 40 % Imaging - Results Chest X-ray: Image Reviewed (no acute pathology) EKG: Image Reviewed (NSR; RBBB; old IWMI; LAD) Problem List - Problems (1) Elevated troponin I level Assessment/Plan: TNI 0.3-->0.48-->0.54 since admission. No chest pain. EKG: no acute ST-T changes.; ? old IW [place].(though no mention of regional wall motion abnormalities on ECHO; normal LVEF; mild LVH. Sepsis is likely the principle contributer to pt's TNI elevation. F/u prior cardiac studies. Code(s): R74.8 - ABNORMAL LEVELS OF OTHER SERUM ENZYMES (2) UTI (urinary tract infection) due to urinary indwelling catheter Assessment/Plan: hx urinary retention (BPH: planned for TURP in the near future)--> F/u with urologist. Code(s): T83.511A - I/I REACT D/T INDWELLING URETHRAL CATHETER, INIT; N39.0 - URINARY TRACT INFECTION, SITE NOT SPECIFIED
[2018-07-08 11:50] LABS: CHOLESTEROL 98 mg/dL (50-200); HDL CHOLESTEROL 29 mg/dL (40-60); TRIGLYCERIDES 94 mg/dL (0-150)
--- NOTE | 2018-07-08 15:09 | PN ---
Progress Note, Physician Chief Complaint: He is much better and his family on bed side no fever or chills seen by ID abd has been changed - Current Medication List Current Medications: Active Medications Acetaminophen (Tylenol -) 650 mg PO Q6H PRN PRN Reason: PAIN OR FEVER Last Admin: 07/07/18 20:18 Dose: 650 mg Atorvastatin Calcium (Lipitor -) 10 mg PO HS [facility] Last Admin: 07/07/18 22:15 Dose: 10 mg Heparin Sodium (Porcine) (Heparin -) 5,000 unit SQ TID [facility] Last Admin: 07/08/18 06:11 Dose: 5,000 unit Piperacillin Sod/Tazobactam (Sod 2.25 gm/ Dextrose) 50 mls @ 100 mls/hr IVPB Q6H-IV [facility]; Protocol Last Admin: 07/08/18 09:13 Dose: 100 mls/hr Dextrose/Sodium Chloride (D5-1/2ns -) 1,000 mls @ 83 mls/hr IV ASDIR [facility] Last Admin: 07/07/18 18:00 Dose: 83 mls/hr Paroxetine HCl (Paxil -) 10 mg PO DAILY [facility] Last Admin: 07/08/18 09:13 Dose: 10 mg - Objective Vital Signs: Vital Signs Temperature 98.4 F 07/08/18 02:00 Pulse Rate 75 07/08/18 09:39 Respiratory Rate 20 07/08/18 09:39 Blood Pressure 101/51 L 07/08/18 09:39 O2 Sat by Pulse Oximetry (%) 100 07/08/18 08:38 Constitutional: Yes: No Distress Eyes: Yes: Conjunctiva Clear Neck: Yes: Supple Cardiovascular: Yes: Pulse Irregular Respiratory: Yes: Regular, CTA Bilaterally Gastrointestinal: Yes: Normal Bowel Sounds Extremities: Yes: WNL Neurological: Yes: WNL, Oriented Labs: CBC, BMP 07/08/18 05:30 07/08/18 05:30 INR, PTT INR 1.15 (0.83-1.09) H 07/06/18 20:11 Assessment/Plan admitted for increased fatigue and confusion due to urinary sepsis indwelling burt catheter fpr past 1 months circumcision 2 weeks ago cont ic fluids iv abx consult and ID seen does not have any complaints at present echo is unremarkable repeat troponin until downward trend, likely due to demand ischemia adb is changed d/w daughter pt is full code
--- NOTE | 2018-07-08 16:49 | PN ---
Progress Note, Physician History of Present Illness: Pt seen and examined, events noted. Labs/imaging/consultation reports reviewed. Today he states he feels better and has no specific complaints. Afebrile, wbc trending down. Daughter at bedside. - Current Medication List Current Medications: Active Medications Acetaminophen (Tylenol -) 650 mg PO Q6H PRN PRN Reason: PAIN OR FEVER Last Admin: 07/07/18 20:18 Dose: 650 mg Atorvastatin Calcium (Lipitor -) 10 mg PO HS [facility] Last Admin: 07/07/18 22:15 Dose: 10 mg Heparin Sodium (Porcine) (Heparin -) 5,000 unit SQ TID [facility] Last Admin: 07/08/18 15:22 Dose: 5,000 unit Piperacillin Sod/Tazobactam (Sod 2.25 gm/ Dextrose) 50 mls @ 100 mls/hr IVPB Q6H-IV [facility]; Protocol Last Admin: 07/08/18 15:22 Dose: 100 mls/hr Dextrose/Sodium Chloride (D5-1/2ns -) 1,000 mls @ 83 mls/hr IV ASDIR [facility] Last Admin: 07/07/18 18:00 Dose: 83 mls/hr Paroxetine HCl (Paxil -) 10 mg PO DAILY [facility] Last Admin: 07/08/18 09:13 Dose: 10 mg - Objective Vital Signs: Vital Signs Temperature 98.4 F 07/08/18 02:00 Pulse Rate 75 07/08/18 09:39 Respiratory Rate 20 07/08/18 09:39 Blood Pressure 101/51 L 07/08/18 09:39 O2 Sat by Pulse Oximetry (%) 100 07/08/18 08:38 Constitutional: Yes: No Distress, Calm Eyes: Yes: Conjunctiva Clear Cardiovascular: Yes: Regular Rate and Rhythm Respiratory: Yes: CTA Bilaterally Gastrointestinal: Yes: Normal Bowel Sounds, Soft, Abdomen, Obese Genitourinary: Yes: Burt Present (clear yellow urine draining) Integumentary: Yes: WNL Neurological: Yes: Alert, Oriented Labs: CBC, BMP 07/08/18 05:30 07/08/18 05:30 INR, PTT INR 1.15 (0.83-1.09) H 07/06/18 20:11 Microbiology 07/06/18 20:27 Urine - Urine - Catheterized Urine Culture - Preliminary Pseudomonas Species 07/06/18 20:15 Blood - Peripheral Venous Blood Culture - Preliminary NO GROWTH OBTAINED AFTER 24 HOURS, INCUBATION TO CONTINUE FOR 4 DAYS. 07/06/18 20:11 Blood - Peripheral Venous Blood Culture - Preliminary NO GROWTH OBTAINED AFTER 24 HOURS, INCUBATION TO CONTINUE FOR 4 DAYS. - ....Imaging X-ray: Report Reviewed Ultrasound: Report Reviewed Problem List - Problems (1) Sepsis Code(s): A41.9 - SEPSIS, UNSPECIFIED ORGANISM (2) UTI (urinary tract infection) due to urinary indwelling catheter Code(s): T83.511A - I/I REACT D/T INDWELLING URETHRAL CATHETER, INIT; N39.0 - URINARY TRACT INFECTION, SITE NOT SPECIFIED (3) Urinary retention due to benign prostatic hyperplasia Code(s): N40.1 - BENIGN PROSTATIC HYPERPLASIA WITH LOWER URINARY TRACT SYMP; R33.8 - OTHER RETENTION OF URINE Assessment/Plan 88 y.o. male with PMH of CVA with Lt hemiparesis, BPH/urinary obstruction with indwelling burt, HLD, HTN, phimosis s/p recent circumcision admitted with weakness/fever/leukocytosis Sepsis Complicated UTI/Indwelling burt Possible Prostatitis Urinary retention BPH ?AURELIA/CKD s/p CVA HTN HLD -- chart reviewed, results noted -- continue Zosyn -- Urine cultures +pseudomonas, Blood cultures neg -- wbc trending down, pt now afebrile -- repeat lactic acid -- continue monitor wbc trend, vitals -- Renal f/u
[2018-07-08] MEDS: ACETAMINOPHEN 325 MG TABLET (FP) PO PRN (18:07)
[2018-07-08] MEDS: DEXTROSE 5%-0.45% SALINE 1,000 ML IV SCH (18:07)
[2018-07-08] MEDS: ATORVASTATIN CA 10 MG TABLET (FP) PO SCH (21:27)
[2018-07-09] MEDS ORDERED: DEXTROSE 5%-WATER - 50 ML IVPB ONE ×4 (01:46→20:54)
[2018-07-09] MEDS ORDERED: PIPERACILLIN/TAZOBACTAM 2.25 GM VIAL IVPB ONE ×4 (01:46→20:54)
[2018-07-09] MEDS: PIPERACILLIN/TAZOB 2.25 GM 2.25 GM in DEXTROSE 5%-WATER - 50 ML IVPB SCH ×4 (02:07→21:00)
[2018-07-09] MEDS: ACETAMINOPHEN 325 MG TABLET (FP) PO PRN ×2 (04:00→23:55)
[2018-07-09] MEDS: HEPARIN NA (PORCINE) 5,000 UNITS/ML 1ML VIAL SQ SCH ×3 (05:46→21:00)
[2018-07-09] MEDS ORDERED: PT OWN MED DRAWER 7, Y5N ONE (10:29)
[2018-07-09] MEDS: PARoxetine HCL 10 MG TABLET (FP) PO SCH (10:34)
--- NOTE | 2018-07-09 11:47 | PN ---
Progress Note, Physician Chief Complaint: He is much better and his family on bed side no fever or chills on iv abx nad no arrythmia on tele - Current Medication List Current Medications: Active Medications Acetaminophen (Tylenol -) 650 mg PO Q6H PRN PRN Reason: PAIN OR FEVER Last Admin: 07/09/18 04:00 Dose: 650 mg Atorvastatin Calcium (Lipitor -) 10 mg PO HS [facility] Last Admin: 07/08/18 21:27 Dose: 10 mg Heparin Sodium (Porcine) (Heparin -) 5,000 unit SQ TID [facility] Last Admin: 07/09/18 05:46 Dose: 5,000 unit Piperacillin Sod/Tazobactam (Sod 2.25 gm/ Dextrose) 50 mls @ 100 mls/hr IVPB Q6H-IV [facility]; Protocol Last Admin: 07/09/18 08:48 Dose: 100 mls/hr Dextrose/Sodium Chloride (D5-1/2ns -) 1,000 mls @ 83 mls/hr IV ASDIR [facility] Last Admin: 07/08/18 18:07 Dose: 83 mls/hr Paroxetine HCl (Paxil -) 10 mg PO DAILY [facility] Last Admin: 07/09/18 10:34 Dose: 10 mg - Objective Vital Signs: Vital Signs Temperature 98.5 F 07/09/18 02:00 Pulse Rate 66 07/09/18 02:00 Respiratory Rate 22 H 07/09/18 02:00 Blood Pressure 104/68 07/09/18 02:00 O2 Sat by Pulse Oximetry (%) 100 07/08/18 21:00 Labs: CBC, BMP 07/08/18 05:30 07/08/18 05:30 INR, PTT INR 1.15 (0.83-1.09) H 07/06/18 20:11 Assessment/Plan admitted for increased fatigue and confusion due to urinary sepsis indwelling burt catheter fpr past 1 months circumcision 2 weeks ago cont ic fluids iv abx consult and ID seen does not have any complaints at present echo is unremarkable repeat troponin until downward trend, likely due to demand ischemia adb is changed d/w daughter pt is full code
--- NOTE | 2018-07-09 14:52 | PN ---
Progress Note, Physician History of Present Illness: stable improving weak - Current Medication List Current Medications: Active Medications Acetaminophen (Tylenol -) 650 mg PO Q6H PRN PRN Reason: PAIN OR FEVER Last Admin: 07/09/18 04:00 Dose: 650 mg Atorvastatin Calcium (Lipitor -) 10 mg PO HS [facility] Last Admin: 07/08/18 21:27 Dose: 10 mg Heparin Sodium (Porcine) (Heparin -) 5,000 unit SQ TID [facility] Last Admin: 07/09/18 05:46 Dose: 5,000 unit Piperacillin Sod/Tazobactam (Sod 2.25 gm/ Dextrose) 50 mls @ 100 mls/hr IVPB Q6H-IV [facility]; Protocol Last Admin: 07/09/18 08:48 Dose: 100 mls/hr Dextrose/Sodium Chloride (D5-1/2ns -) 1,000 mls @ 83 mls/hr IV ASDIR [facility] Last Admin: 07/08/18 18:07 Dose: 83 mls/hr Paroxetine HCl (Paxil -) 10 mg PO DAILY [facility] Last Admin: 07/09/18 10:34 Dose: 10 mg - Objective Vital Signs: Vital Signs Temperature 98.5 F 07/09/18 02:00 Pulse Rate 66 07/09/18 02:00 Respiratory Rate 22 H 07/09/18 02:00 Blood Pressure 104/68 07/09/18 02:00 O2 Sat by Pulse Oximetry (%) 100 07/08/18 21:00 Constitutional: Yes: No Distress, Calm Cardiovascular: Yes: S1, S2 Respiratory: Yes: Regular, CTA Bilaterally Gastrointestinal: Yes: Normal Bowel Sounds, Soft Genitourinary: Yes: Burt Present Musculoskeletal: Yes: WNL Extremities: Yes: WNL Neurological: Yes: Alert, Oriented Psychiatric: Yes: Alert, Oriented Labs: CBC, BMP 07/08/18 05:30 07/08/18 05:30 INR, PTT INR 1.15 (0.83-1.09) H 07/06/18 20:11 Assessment/Plan Patient is an 88 year old male with past medical history of CVA, HTN, HLD, pre- DM, BPH with burt (May 2018) and phimosis s/p circumcision (2 weeks ago), presented with generalized weakness for 1 day. sepsis uti increaed troponin r/o prostatitis dehydration leukocytosis plan continue abx await for urology plan rest as per the team patient improving
[2018-07-09] MEDS: DEXTROSE 5%-0.45% SALINE 1,000 ML IV SCH (20:36)
[2018-07-09] MEDS: ATORVASTATIN CA 10 MG TABLET (FP) PO SCH (21:00)
[2018-07-10] MEDS ORDERED: PIPERACILLIN/TAZOBACTAM 2.25 GM VIAL IVPB ONE ×4 (01:18→20:10)
[2018-07-10] MEDS ORDERED: DEXTROSE 5%-WATER - 50 ML IVPB ONE ×4 (01:18→20:10)
[2018-07-10] MEDS: PIPERACILLIN/TAZOB 2.25 GM 2.25 GM in DEXTROSE 5%-WATER - 50 ML IVPB SCH ×4 (03:15→20:46)
[2018-07-10] MEDS: HEPARIN NA (PORCINE) 5,000 UNITS/ML 1ML VIAL SQ SCH ×3 (05:40→23:08)
--- NOTE | 2018-07-10 08:47 | PN ---
Progress Note (short form) - Note Progress Note: CBC, BMP CBC, BMP 07/08/18 05:30 07/08/18 05:30 Vital Signs Period Temp Pulse Resp BP Sys/Leon Pulse Ox Last 24 Hr 98 F-98.8 F 71-83 22-25 108-141/59-81 94-95 S1S2 RRR lungs cta abd soft non tender burt with cloudy urine tr edema awake, alert oriented x3, mentation is much better offers no new complaints admitted for increased fatigue and confusion due to urinary sepsis-Pseudomonas in urine, blood cultures negative indwelling burt catheter fpr past 1 months circumcision 2 weeks ago cont ic fluids iv abx burt was changed after admission cont zosyn iv fluids physical therpay can transfer to floor GI/DVT prophylaxis pt is full code
[2018-07-10] MEDS ORDERED: PT OWN MED DRAWER 7, Y5N ONE (09:17)
--- NOTE | 2018-07-10 09:36 | PN ---
Progress Note, Physician Chief Complaint: Pt alemono; denies chest pain or dyapnse. History of Present Illness: he patient is an 88 year old male, with a significant PMH of stroke, cholecystectomy, hypertension, hyperlipidemia, prediabetes, BPH w/ burt, phimosis s/p circumcision, anxiety, who presents to the emergency department with generalized weakness over the past 2-3 days. Noted to have elevated TNI on admission. The patient denies chest pain, shortness of breath, headache and dizziness. Denies fever, chills, nausea, vomit, diarrhea and constipation. Denies dysuria, frequency, urgency and hematuria. Allergies: NKA - Current Medication List Current Medications: Active Medications Acetaminophen (Tylenol -) 650 mg PO Q6H PRN PRN Reason: PAIN OR FEVER Last Admin: 07/09/18 23:55 Dose: 650 mg Atorvastatin Calcium (Lipitor -) 10 mg PO HS [facility] Last Admin: 07/09/18 21:00 Dose: 10 mg Heparin Sodium (Porcine) (Heparin -) 5,000 unit SQ TID [facility] Last Admin: 07/10/18 05:40 Dose: 5,000 unit Piperacillin Sod/Tazobactam (Sod 2.25 gm/ Dextrose) 50 mls @ 100 mls/hr IVPB Q6H-IV [facility]; Protocol Last Admin: 07/10/18 03:15 Dose: 100 mls/hr Dextrose/Sodium Chloride (D5-1/2ns -) 1,000 mls @ 83 mls/hr IV ASDIR [facility] Last Admin: 07/09/18 20:36 Dose: Not Given Paroxetine HCl (Paxil -) 10 mg PO DAILY [facility] Last Admin: 07/09/18 10:34 Dose: 10 mg Ranitidine HCl (Zantac -) 150 mg PO DAILY [facility] - Objective Vital Signs: Vital Signs Temperature 98.8 F 07/10/18 02:00 Pulse Rate 83 07/10/18 02:00 Respiratory Rate 22 H 07/10/18 02:00 Blood Pressure 121/70 07/10/18 02:00 O2 Sat by Pulse Oximetry (%) 94 L 07/09/18 21:00 Constitutional: Yes: Calm Eyes: Yes: WNL Cardiovascular: Yes: S1, S2, S4 Labs: CBC, BMP 07/08/18 05:30 07/08/18 05:30 INR, PTT INR 1.15 (0.83-1.09) H 07/06/18 20:11 Problem List - Problems (1) Elevated troponin I level Assessment/Plan: TNI 0.3-->0.48-->0.54-->0.31 today. No chest pain. EKG: no acute ST-T changes.; ? old IW [place].(though no mention of regional wall motion abnormalities on ECHO; normal LVEF; mild LVH. Sepsis is likely the principle contributer to pt's TNI elevation. F/u prior cardiac (and cerebral: hx CVA) studies; if not done recently, will consider stress test when stable. Code(s): R74.8 - ABNORMAL LEVELS OF OTHER SERUM ENZYMES (2) UTI (urinary tract infection) due to urinary indwelling catheter Assessment/Plan: hx urinary retention (BPH: planned for TURP in the near future)--> F/u with urologist. Code(s): T83.511A - I/I REACT D/T INDWELLING URETHRAL CATHETER, INIT; N39.0 - URINARY TRACT INFECTION, SITE NOT SPECIFIED (3) Hyperlipidemia Assessment/Plan: On atorvastatin 10 mg daily; LDL < 70 mg/dL. Code(s): E78.5 - HYPERLIPIDEMIA, UNSPECIFIED
[2018-07-10] MEDS: PARoxetine HCL 10 MG TABLET (FP) PO SCH (10:00)
[2018-07-10] MEDS: RANITIDINE HCL 150 MG TABLET (FP) PO SCH (10:00)
--- NOTE | 2018-07-10 10:57 | PN ---
Progress Note, Physician History of Present Illness: he patient is an 88 year old male, with a significant PMH of stroke, cholecystectomy, hypertension, hyperlipidemia, prediabetes, BPH w/ burt, phimosis s/p circumcision, anxiety, who presents to the emergency department with generalized weakness over the past 2-3 days. Noted to have elevated TNI on admission. The patient denies chest pain, shortness of breath, headache and dizziness. Denies fever, chills, nausea, vomit, diarrhea and constipation. Denies dysuria, frequency, urgency and hematuria. - Current Medication List Current Medications: Active Medications Acetaminophen (Tylenol -) 650 mg PO Q6H PRN PRN Reason: PAIN OR FEVER Last Admin: 07/09/18 23:55 Dose: 650 mg Atorvastatin Calcium (Lipitor -) 10 mg PO HS [facility] Last Admin: 07/09/18 21:00 Dose: 10 mg Heparin Sodium (Porcine) (Heparin -) 5,000 unit SQ TID [facility] Last Admin: 07/10/18 05:40 Dose: 5,000 unit Piperacillin Sod/Tazobactam (Sod 2.25 gm/ Dextrose) 50 mls @ 100 mls/hr IVPB Q6H-IV [facility]; Protocol Last Admin: 07/10/18 09:58 Dose: 100 mls/hr Dextrose/Sodium Chloride (D5-1/2ns -) 1,000 mls @ 83 mls/hr IV ASDIR [facility] Last Admin: 07/09/18 20:36 Dose: Not Given Paroxetine HCl (Paxil -) 10 mg PO DAILY [facility] Last Admin: 07/10/18 10:00 Dose: 10 mg Ranitidine HCl (Zantac -) 150 mg PO DAILY [facility] Last Admin: 07/10/18 10:00 Dose: 150 mg - Objective Vital Signs: Vital Signs Temperature 98.8 F 07/10/18 02:00 Pulse Rate 83 07/10/18 02:00 Respiratory Rate 22 H 07/10/18 02:00 Blood Pressure 121/70 07/10/18 02:00 O2 Sat by Pulse Oximetry (%) 94 L 07/09/18 21:00 Eyes: Yes: WNL, Conjunctiva Clear, EOM Intact HENT: Yes: WNL, Atraumatic, Normocephalic Neck: Yes: WNL, Supple, Trachea Midline Cardiovascular: Yes: WNL, Regular Rate and Rhythm Respiratory: Yes: WNL, Regular, CTA Bilaterally Gastrointestinal: Yes: WNL, Normal Bowel Sounds Genitourinary: Yes: WNL Musculoskeletal: Yes: WNL Extremities: Yes: WNL Edema: No Integumentary: Yes: WNL ...Motor Strength: WNL Psychiatric: Yes: WNL Labs: CBC, BMP 07/08/18 05:30 07/08/18 05:30 INR, PTT INR 1.15 (0.83-1.09) H 07/06/18 20:11 Laboratory Tests 07/06/18 07/06/18 07/06/18 20:11 20:11 20:11 WBC 23.0 H RBC 4.52 Hgb 13.1 Hct 38.5 MCV 85.1 MCH 29.0 MCHC 34.0 RDW 14.8 Plt Count 139 MPV 10.5 Absolute Neuts (auto) 21.1 H Neutrophils % 91.7 H Neutrophils % (Manual) 90.0 H Band Neutrophils % 6.0 Lymphocytes % 2.0 L Lymphocytes % (Manual) 2.0 L Monocytes % 6.1 Monocytes % (Manual) 2 L Eosinophils % 0.0 Eosinophils % (Manual) Basophils % 0.2 Basophils % (Manual) Myelocytes % (Man) Promyelocytes % (Man) Blast Cells % (Manual) Nucleated RBC % 0 Metamyelocytes Hypochromia Platelet Estimate Adequate Platelet Comment No clumping noted Polychromasia Poikilocytosis Anisocytosis 1+ Microcytosis Macrocytosis 1+ Jeancarlos Cells PT with INR 13.60 H INR 1.15 H PTT (Actin FS) 27.3 VBG pH 7.40 POC VBG pCO2 39.2 POC VBG pO2 32.8 Mixed VBG HCO3 24.0 Sodium Potassium Chloride Carbon Dioxide Anion Gap BUN Creatinine Creat Clearance w eGFR Random Glucose Hemoglobin A1c % Lactic Acid Calcium Phosphorus Magnesium Total Bilirubin AST ALT Alkaline Phosphatase Creatine Kinase Creatine Kinase Index CK-MB (CK-2) Troponin I Total Protein Albumin Prealbumin Triglycerides Cholesterol Total LDL Cholesterol HDL Cholesterol Urine Color Urine Appearance Urine pH Ur Specific [place] Urine Protein Urine Glucose (UA) Urine Ketones Urine Blood Urine Nitrite Urine Bilirubin Urine Urobilinogen Ur Leukocyte Esterase Urine WBC (Auto) Urine RBC (Auto) Hyaline Casts Urine Mucus Ur Random Sodium Ur Random Potassium Ur Random Chloride Influenza A (Rapid) Influenza B (Rapid) 07/06/18 07/06/18 07/06/18 20:11 20:11 20:11 WBC RBC Hgb Hct MCV MCH MCHC RDW Plt Count MPV Absolute Neuts (auto) Neutrophils % Neutrophils % (Manual) Band Neutrophils % Lymphocytes % Lymphocytes % (Manual) Monocytes % Monocytes % (Manual) Eosinophils % Eosinophils % (Manual) Basophils % Basophils % (Manual) Myelocytes % (Man) Promyelocytes % (Man) Blast Cells % (Manual) Nucleated RBC % Metamyelocytes Hypochromia Platelet Estimate Platelet Comment Polychromasia Poikilocytosis Anisocytosis Microcytosis Macrocytosis [place] Cells PT with INR INR PTT (Actin FS) VBG pH POC VBG pCO2 POC VBG pO2 Mixed VBG HCO3 Sodium 141 Potassium 4.1 Chloride 108 H Carbon Dioxide 25 Anion Gap 8 BUN 43 H Creatinine 2.0 H Creat Clearance w eGFR 31.62 Random Glucose 143 H Hemoglobin A1c % Lactic Acid 1.8 Calcium 8.5 Phosphorus Magnesium Total Bilirubin 0.7 AST 22 ALT 29 Alkaline Phosphatase 95 Creatine Kinase Creatine Kinase Index CK-MB (CK-2) Troponin I 0.30 H Total Protein 6.0 L Albumin 3.2 L Prealbumin Triglycerides Cholesterol Total LDL Cholesterol HDL Cholesterol Urine Color Urine Appearance Urine pH Ur Specific [place] Urine Protein Urine Glucose (UA) Urine Ketones Urine Blood Urine Nitrite Urine Bilirubin Urine Urobilinogen Ur Leukocyte Esterase Urine WBC (Auto) Urine RBC (Auto) Hyaline Casts Urine Mucus Ur Random Sodium Ur Random Potassium Ur Random Chloride Influenza A (Rapid) Influenza B (Rapid) 07/06/18 07/07/18 07/07/18 20:27 00:11 00:11 WBC RBC Hgb Hct MCV MCH MCHC RDW Plt Count MPV Absolute Neuts (auto) Neutrophils % Neutrophils % (Manual) Band Neutrophils % Lymphocytes % Lymphocytes % (Manual) Monocytes % Monocytes % (Manual) Eosinophils % Eosinophils % (Manual) Basophils % Basophils % (Manual) Myelocytes % (Man) Promyelocytes % (Man) Blast Cells % (Manual) Nucleated RBC % Metamyelocytes Hypochromia Platelet Estimate Platelet Comment Polychromasia Poikilocytosis Anisocytosis Microcytosis Macrocytosis Je[place]arlos Cells PT with INR INR PTT (Actin FS) VBG pH POC VBG pCO2 POC VBG pO2 Mixed VBG HCO3 Sodium Potassium Chloride Carbon Dioxide Anion Gap BUN Creatinine Creat Clearance w eGFR Random Glucose Hemoglobin A1c % Lactic Acid 2.6 H* Calcium Phosphorus Magnesium Total Bilirubin AST ALT Alkaline Phosphatase Creatine Kinase Creatine Kinase Index CK-MB (CK-2) Troponin I Total Protein Albumin Prealbumin 23.6 Triglycerides Cholesterol Total LDL Cholesterol HDL Cholesterol Urine Color Ltyellow Urine Appearance Slcloudy Urine pH 5.0 Ur Specific [place] 1.012 Urine Protein Negative Urine Glucose (UA) Negative Urine Ketones Negative Urine Blood 2+ H Urine Nitrite Negative Urine Bilirubin Negative Urine Urobilinogen 2.0 Ur Leukocyte Esterase 2+ H Urine WBC (Auto) 28 Urine RBC (Auto) 2 Hyaline Casts 1 Urine Mucus Rare Ur Random Sodium Ur Random Potassium Ur Random Chloride Influenza A (Rapid) Influenza B (Rapid) 07/07/18 07/07/18 07/07/18 00:29 00:29 02:00 WBC RBC Hgb Hct MCV MCH MCHC RDW Plt Count MPV Absolute Neuts (auto) Neutrophils % Neutrophils % (Manual) Band Neutrophils % Lymphocytes % Lymphocytes % (Manual) Monocytes % Monocytes % (Manual) Eosinophils % Eosinophils % (Manual) Basophils % Basophils % (Manual) Myelocytes % (Man) Promyelocytes % (Man) Blast Cells % (Manual) Nucleated RBC % Metamyelocytes Hypochromia Platelet Estimate Platelet Comment Polychromasia Poikilocytosis Anisocytosis Microcytosis Macrocytosis Je[place] Cells PT with INR INR PTT (Actin FS) VBG pH POC VBG pCO2 POC VBG pO2 Mixed VBG HCO3 Sodium Potassium Chloride Carbon Dioxide Anion Gap BUN Creatinine Creat Clearance w eGFR Random Glucose Hemoglobin A1c % Lactic Acid Calcium Phosphorus Magnesium Total Bilirubin AST ALT Alkaline Phosphatase Creatine Kinase Creatine Kinase Index CK-MB (CK-2) Troponin I 0.48 H Total Protein Albumin Prealbumin Triglycerides Cholesterol Total LDL Cholesterol HDL Cholesterol Urine Color Urine Appearance Urine pH Ur Specific [place] Urine Protein Urine Glucose (UA) Urine Ketones Urine Blood Urine Nitrite Urine Bilirubin Urine Urobilinogen Ur Leukocyte Esterase Urine WBC (Auto) Urine RBC (Auto) Hyaline Casts Urine Mucus Ur Random Sodium 49 Ur Random Potassium 60.0 Ur Random Chloride 74 L Influenza A (Rapid) Negative Influenza B (Rapid) Negative 07/07/18 07/07/18 07/07/18 07:00 07:00 07:00 WBC 19.5 H RBC 4.07 Hgb 11.9 Hct 34.9 L MCV 85.9 MCH 29.2 MCHC 34.1 RDW 14.8 Plt Count 116 L MPV 10.3 Absolute Neuts (auto) 16.8 H Neutrophils % 86.3 H Neutrophils % (Manual) 87.0 H Band Neutrophils % 0.0 Lymphocytes % 5.3 L D Lymphocytes % (Manual) 5.0 L D Monocytes % 7.7 Monocytes % (Manual) 5 D Eosinophils % 0.3 D Eosinophils % (Manual) 0.0 Basophils % 0.4 Basophils % (Manual) 0.0 Myelocytes % (Man) 0 Promyelocytes % (Man) 0 Blast Cells % (Manual) 0 Nucleated RBC % 0 Metamyelocytes 0 Hypochromia 0 Platelet Estimate Decreased Platelet Comment Polychromasia 0 Poikilocytosis 1+ Anisocytosis 1+ Microcytosis 0 Macrocytosis 1+ Jeancarlos Cells 1+ PT with INR INR PTT (Actin FS) VBG pH POC VBG pCO2 POC VBG pO2 Mixed VBG HCO3 Sodium 140 Potassium 4.0 Chloride 110 H Carbon Dioxide 23 Anion Gap 8 BUN 38 H Creatinine 1.8 H Creat Clearance w eGFR 35.70 Random Glucose 106 Hemoglobin A1c % 6.2 Lactic Acid Calcium 7.9 L Phosphorus 2.3 L Magnesium 1.9 Total Bilirubin 1.0 AST 40 H ALT 27 Alkaline Phosphatase 76 Creatine Kinase 683 H Creatine Kinase Index 0.6 CK-MB (CK-2) 4.6 H Troponin I 0.54 H Total Protein 5.2 L Albumin 2.7 L Prealbumin Triglycerides Cholesterol Total LDL Cholesterol HDL Cholesterol Urine Color Urine Appearance Urine pH Ur Specific [place] Urine Protein Urine Glucose (UA) Urine Ketones Urine Blood Urine Nitrite Urine Bilirubin Urine Urobilinogen Ur Leukocyte Esterase Urine WBC (Auto) Urine RBC (Auto) Hyaline Casts Urine Mucus Ur Random Sodium Ur Random Potassium Ur Random Chloride Influenza A (Rapid) Influenza B (Rapid) 07/08/18 07/08/18 05:30 05:30 WBC 17.4 H RBC 3.90 L Hgb 11.3 L Hct 33.2 L MCV 85.3 MCH 28.9 MCHC 33.9 RDW 14.7 Plt Count 124 L MPV 10.3 Absolute Neuts (auto) 15.0 H Neutrophils % 86.2 H Neutrophils % (Manual) Band Neutrophils % Lymphocytes % 5.4 L Lymphocytes % (Manual) Monocytes % 6.2 Monocytes % (Manual) Eosinophils % 1.9 D Eosinophils % (Manual) Basophils % 0.3 Basophils % (Manual) Myelocytes % (Man) Promyelocytes % (Man) Blast Cells % (Manual) Nucleated RBC % 0 Metamyelocytes Hypochromia Platelet Estimate Platelet Comment Polychromasia Poikilocytosis Anisocytosis Microcytosis Macrocytosis Je[place] Cells PT with INR INR PTT (Actin FS) VBG pH POC VBG pCO2 POC VBG pO2 Mixed VBG HCO3 Sodium 139 Potassium 3.7 Chloride 106 Carbon Dioxide 24 Anion Gap 8 BUN 41 H Creatinine 2.1 H Creat Clearance w eGFR 29.89 Random Glucose 122 H Hemoglobin A1c % Lactic Acid Calcium 7.8 L Phosphorus Magnesium Total Bilirubin 1.1 H AST 42 H ALT 37 Alkaline Phosphatase 82 Creatine Kinase 386 H Creatine Kinase Index 0.5 CK-MB (CK-2) 2.0 Troponin I 0.31 H Total Protein 5.1 L Albumin 2.6 L Prealbumin Triglycerides 94 Cholesterol 98 Total LDL Cholesterol 53 HDL Cholesterol 29 L Urine Color Urine Appearance Urine pH Ur Specific [place] Urine Protein Urine Glucose (UA) Urine Ketones Urine Blood Urine Nitrite Urine Bilirubin Urine Urobilinogen Ur Leukocyte Esterase Urine WBC (Auto) Urine RBC (Auto) Hyaline Casts Urine Mucus Ur Random Sodium Ur Random Potassium Ur Random Chloride Influenza A (Rapid) Influenza B (Rapid) Assessment/Plan - Problems (1) Elevated troponin I level Assessment/Plan: TNI 0.3-->0.48-->0.54-->0.31 No chest pain. EKG: no acute ST-T changes.; ? old IW [place].(though no mention of regional wall motion abnormalities on ECHO; normal LVEF; mild LVH. Sepsis is likely the principle contributer to pt's TNI elevation. F/u prior cardiac (and cerebral: hx CVA) studies; if not done recently, will consider stress test when stable. Code(s): R74.8 - ABNORMAL LEVELS OF OTHER SERUM ENZYMES (2) UTI (urinary tract infection) due to urinary indwelling catheter Assessment/Plan: UTI wbc improving hx urinary retention (BPH: planned for TURP in the near future)--> F/u with urologist. Code(s): T83.511A - I/I REACT D/T INDWELLING URETHRAL CATHETER, INIT; N39.0 - URINARY TRACT INFECTION, SITE NOT SPECIFIED (3) Hyperlipidemia Assessment/Plan: On atorvastatin 10 mg daily; LDL < 70 mg/dL. Code(s): E78.5 - HYPERLIPIDEMIA, UNSPECIFIED cc time 36 min
--- NOTE | 2018-07-10 13:28 | PN ---
Progress Note, Physician History of Present Illness: continues to improve weakness daughter in room - Current Medication List Current Medications: Active Medications Acetaminophen (Tylenol -) 650 mg PO Q6H PRN PRN Reason: PAIN OR FEVER Last Admin: 07/09/18 23:55 Dose: 650 mg Atorvastatin Calcium (Lipitor -) 10 mg PO HS [facility] Last Admin: 07/09/18 21:00 Dose: 10 mg Heparin Sodium (Porcine) (Heparin -) 5,000 unit SQ TID [facility] Last Admin: 07/10/18 05:40 Dose: 5,000 unit Piperacillin Sod/Tazobactam (Sod 2.25 gm/ Dextrose) 50 mls @ 100 mls/hr IVPB Q6H-IV [facility]; Protocol Last Admin: 07/10/18 09:58 Dose: 100 mls/hr Dextrose/Sodium Chloride (D5-1/2ns -) 1,000 mls @ 83 mls/hr IV ASDIR [facility] Last Admin: 07/09/18 20:36 Dose: Not Given Paroxetine HCl (Paxil -) 10 mg PO DAILY [facility] Last Admin: 07/10/18 10:00 Dose: 10 mg Ranitidine HCl (Zantac -) 150 mg PO DAILY [facility] Last Admin: 07/10/18 10:00 Dose: 150 mg - Objective Vital Signs: Vital Signs Temperature 98.8 F 07/10/18 02:00 Pulse Rate 82 07/10/18 13:18 Respiratory Rate 22 H 07/10/18 13:18 Blood Pressure 127/68 07/10/18 13:18 O2 Sat by Pulse Oximetry (%) 95 07/10/18 09:00 Constitutional: Yes: No Distress, Calm Cardiovascular: Yes: S1, S2 Respiratory: Yes: Regular, CTA Bilaterally Gastrointestinal: Yes: Normal Bowel Sounds, Soft Genitourinary: Yes: Burt Present Musculoskeletal: Yes: WNL Extremities: Yes: WNL Labs: CBC, BMP 07/08/18 05:30 07/08/18 05:30 INR, PTT INR 1.15 (0.83-1.09) H 07/06/18 20:11 Assessment/Plan Patient is an 88 year old male with past medical history of CVA, HTN, HLD, pre- DM, BPH with burt (May 2018) and phimosis s/p circumcision (2 weeks ago), presented with generalized weakness for 1 day. sepsis uti increaed troponin r/o prostatitis dehydration leukocytosis plan continue abx await for urology plan rest as per the team patient improving all cx reports noted
[2018-07-10] MEDS ORDERED: DEXTROSE 5%-0.45% SALINE 1,000 ML IV SCH (20:25)
--- NOTE | 2018-07-10 20:28 | EKG ---
Test Reason : Blood Pressure : / mmHG Vent. Rate : 083 BPM Atrial Rate : 084 BPM P-R Int : 000 ms QRS Dur : 114 ms QT Int : 384 ms P-R-T Axes : 000 -64 045 degrees QTc Int : 451 ms UNDETERMINED RHYTHM POSSIBLE SINUS RHYTHM WITH SINUS ARRHYTHMIA ? MULTIFOCAL LEFT AXIS DEVIATION LOW VOLTAGE QRS RIGHT BUNDLE BRANCH BLOCK INFERIOR INFARCT (CITED ON OR BEFORE 07-JUL-2018) ABNORMAL ECG WHEN COMPARED WITH ECG OF 07-JUL-2018 00:47, SINUS ARRHYTHMIA IS SEEN Confirmed by JOSE ENGLE, FRANCE ([id number]) on 07/10/2018 8:27:51 PM Referred By: KARENA OSUNA DR Confirmed By:FRANCE GARCIA MD
[2018-07-10] MEDS: ATORVASTATIN CA 10 MG TABLET (FP) PO SCH (23:08)
[2018-07-11] MEDS ORDERED: PIPERACILLIN/TAZOBACTAM 2.25 GM VIAL IVPB ONE ×4 (01:39→21:33)
[2018-07-11] MEDS ORDERED: DEXTROSE 5%-WATER - 50 ML IVPB ONE ×4 (01:40→21:33)
[2018-07-11] MEDS: PIPERACILLIN/TAZOB 2.25 GM 2.25 GM in DEXTROSE 5%-WATER - 50 ML IVPB SCH ×4 (03:20→22:02)
[2018-07-11] MEDS: HEPARIN NA (PORCINE) 5,000 UNITS/ML 1ML VIAL SQ SCH ×2 (05:47→14:57)
[2018-07-11 10:05] LABS: BASO % 0.4 % (0-2.0); EOS % 1.5 % (0-4.5); HEMATOCRIT 34.1 % (35.4-49); HEMOGLOBIN 11.6 GM/dL (11.7-16.9); LYMPH % 7.5 % (8-40); MCH 29.4 pg (25.7-33.7); MCHC 34.1 g/dl (32.0-35.9); MEAN CELL VOLUME 86.4 fl (80-96); MEAN PLT VOLUME 10.5 fl (7.5-11.1); MONO % 10.2 % (3.8-10.2); NEUT % 80.4 % (42.8-82.8); PLATELET COUNT 171 K/MM3 (134-434); RBC 3.95 M/mm3 (4.00-5.60); RDW 14.7 % (11.9-15.9); WHITE BLOOD COUNT 12.6 K/mm3 (4.0-10.0)
[2018-07-11] MEDS: PARoxetine HCL 10 MG TABLET (FP) PO SCH (10:37)
[2018-07-11] MEDS: RANITIDINE HCL 150 MG TABLET (FP) PO SCH (10:37)
[2018-07-11 10:49] LABS: ALBUMIN 2.3 g/dl (3.4-5.0); ALK PHOS 110 U/L (45-117); ANION GAP 8 MMOL/L (8-16); BILIRUBIN,TOTAL 0.8 mg/dL (0.2-1); BLOOD UREA NITROGEN 28 mg/dL (7-18); CALCIUM 8.3 mg/dL (8.5-10.1); CHLORIDE 111 mmol/L (98-107); CO2 24 mmol/L (21-32); CREATININE 1.7 mg/dL (0.55-1.3); GLUCOSE,RANDOM 122 mg/dL (74-106); POTASSIUM 3.8 mmol/L (3.5-5.1); SGOT/AST 21 U/L (15-37); SGPT/ALT 34 U/L (13-61); SODIUM 142 mmol/L (136-145); TOT PROT 4.9 g/dl (6.4-8.2)
--- NOTE | 2018-07-11 11:23 | PN ---
Progress Note (short form) - Note Progress Note: feels better still with elevated WBC urine yellow burt in place will plan for TURP at end of week if can be cleared medically and cardiologically
--- NOTE | 2018-07-11 11:55 | PN ---
Progress Note (short form) - Note Progress Note: CBC, BMP 07/11/18 09:30 07/11/18 09:30 S1S2 RRR lungs cta abd soft non tender burt with cloudy urine tr edema awake, alert oriented x3, mentation is much better offers no new complaints admitted for increased fatigue and confusion due to urinary sepsis-Pseudomonas in urine, blood cultures negative indwelling burt catheter for past 1 months circumcision 2 weeks ago cont ic fluids iv abx burt was changed after admission cont zosyn dc iv fluids physical therpay GI/DVT prophylaxis will discuss cardiac clearance prior to tentative TURP dc planning possibly to STR based on current functional status pt is full code
[2018-07-11 11:57] LABS: PLATELET ESTIMATE ADEQUATE
--- NOTE | 2018-07-11 13:05 | PN ---
Progress Note, Physician History of Present Illness: stable daughter thinks patient is confused patient does not think so says he knows everything patient is not confused - Current Medication List Current Medications: Active Medications Acetaminophen (Tylenol -) 650 mg PO Q6H PRN PRN Reason: PAIN OR FEVER Atorvastatin Calcium (Lipitor -) 10 mg PO HS [facility] Last Admin: 07/10/18 23:08 Dose: 10 mg Heparin Sodium (Porcine) (Heparin -) 5,000 unit SQ TID [facility] Last Admin: 07/11/18 05:47 Dose: 5,000 unit Piperacillin Sod/Tazobactam (Sod 2.25 gm/ Dextrose) 50 mls @ 100 mls/hr IVPB Q6H-IV [facility]; Protocol Last Admin: 07/11/18 10:00 Dose: 100 mls/hr Paroxetine HCl (Paxil -) 10 mg PO DAILY [facility] Last Admin: 07/11/18 10:37 Dose: 10 mg Ranitidine HCl (Zantac -) 150 mg PO DAILY [facility] Last Admin: 07/11/18 10:37 Dose: 150 mg - Objective Vital Signs: Vital Signs Temperature 98 F 07/11/18 05:51 Pulse Rate 84 07/11/18 05:51 Respiratory Rate 20 07/11/18 05:51 Blood Pressure 126/60 07/11/18 05:51 O2 Sat by Pulse Oximetry (%) 97 07/10/18 21:00 Constitutional: Yes: No Distress, Calm Cardiovascular: Yes: S1, S2 Respiratory: Yes: On Nasal O2 Gastrointestinal: Yes: Normal Bowel Sounds, Soft Genitourinary: Yes: Burt Present Musculoskeletal: Yes: WNL Extremities: Yes: WNL Neurological: Yes: Alert, Oriented Psychiatric: Yes: Alert, Oriented Labs: CBC, BMP 07/11/18 09:30 07/11/18 09:30 INR, PTT INR 1.15 (0.83-1.09) H 07/06/18 20:11 Assessment/Plan Patient is an 88 year old male with past medical history of CVA, HTN, HLD, pre- DM, BPH with burt (May 2018) and phimosis s/p circumcision (2 weeks ago), presented with generalized weakness for 1 day. sepsis uti increaed troponin r/o prostatitis dehydration leukocytosis plan continue abx await for urology plan rest as per the team patient improving all cx reports noted
--- NOTE | 2018-07-11 17:00 | PN ---
Progress Note, Physician Chief Complaint: Pt samuel; denies chest pain; mild SOB + wheezing. Daughter is at bedside. History of Present Illness: he patient is an 88 year old white male, with a significant PMH of stroke, cholecystectomy, hypertension, hyperlipidemia, prediabetes, BPH w/ burt, phimosis s/p circumcision, anxiety, who presents to the emergency department with generalized weakness over the past 2-3 days. Noted to have elevated TNI on admission. The patient denies chest pain, shortness of breath, headache and dizziness. Denies fever, chills, nausea, vomit, diarrhea and constipation. Denies dysuria, frequency, urgency and hematuria. Allergies: NKA - Current Medication List Current Medications: Active Medications Acetaminophen (Tylenol -) 650 mg PO Q6H PRN PRN Reason: PAIN OR FEVER Atorvastatin Calcium (Lipitor -) 10 mg PO HS [facility] Last Admin: 07/10/18 23:08 Dose: 10 mg Piperacillin Sod/Tazobactam (Sod 2.25 gm/ Dextrose) 50 mls @ 100 mls/hr IVPB Q6H-IV [facility]; Protocol Last Admin: 07/11/18 15:00 Dose: 100 mls/hr Paroxetine HCl (Paxil -) 10 mg PO DAILY [facility] Last Admin: 07/11/18 10:37 Dose: 10 mg Ranitidine HCl (Zantac -) 150 mg PO DAILY [facility] Last Admin: 07/11/18 10:37 Dose: 150 mg - Objective Vital Signs: Vital Signs Temperature 98.2 F 07/11/18 14:00 Pulse Rate 83 07/11/18 14:00 Respiratory Rate 20 07/11/18 14:00 Blood Pressure 111/61 07/11/18 14:00 O2 Sat by Pulse Oximetry (%) 99 07/11/18 09:00 Constitutional: Yes: Anxious Eyes: Yes: WNL HENT: Yes: WNL Neck: Yes: WNL Cardiovascular: Yes: S1 (varies in intensity), S2 Gastrointestinal: Yes: Soft ...Rectal Exam: Yes: Deferred Genitourinary: No: Anuria Musculoskeletal: Yes: Muscle Weakness Extremities: Yes: Cool Edema: No Peripheral Pulses WNL: Yes Integumentary: Yes: WNL Neurological: Yes: Alert, Oriented, Weakness Psychiatric: Yes: WNL Labs: CBC, BMP 07/11/18 09:30 07/11/18 09:30 INR, PTT INR 1.15 (0.83-1.09) H 07/06/18 20:11 Abnormal Lab Results 07/11/18 07/11/18 09:30 09:30 WBC 12.6 H RBC 3.95 L Hgb 11.6 L Hct 34.1 L Absolute Neuts (auto) 10.2 H Lymphocytes % 7.5 L D Chloride 111 H BUN 28 H Creatinine 1.7 H Random Glucose 122 H Calcium 8.3 L Total Protein 4.9 L Albumin 2.3 L Abnormal Lab Results 07/11/18 07/11/18 09:30 09:30 WBC 12.6 H RBC 3.95 L Hgb 11.6 L Hct 34.1 L Absolute Neuts (auto) 10.2 H Lymphocytes % 7.5 L D Chloride 111 H BUN 28 H Creatinine 1.7 H Random Glucose 122 H Calcium 8.3 L B-Natriuretic Peptide 6567.3 H Total Protein 4.9 L Albumin 2.3 L - ....Imaging Chest X-ray: Pending, Image Reviewed Problem List - Problems (1) Elevated troponin I level Assessment/Plan: TNI 0.3-->0.48-->0.54-->0.31 today. No chest pain. EKG: no acute ST-T changes.; ? old IW [place].(though no mention of regional wall motion abnormalities on ECHO; normal LVEF; mild LVH. Sepsis is likely the principle contributer to pt's TNI elevation. Discussed pt with his daughter: until a few weeks ago, her father was walking up a flight of steps sveral times a day at home to the bathroom, and walking another set of steps down to a lower floor without chest pain or dyspnea. From a cardiac standpoint, ther are no absolute contraindications for Mr. Burch to undergo porstate surgery. Code(s): R74.8 - ABNORMAL LEVELS OF OTHER SERUM ENZYMES (2) UTI (urinary tract infection) due to urinary indwelling catheter Assessment/Plan: hx urinary retention (BPH: planned for TURP in the near future; cleared from cardiac perspective for the procedure.). F/u with urologist. Code(s): T83.511A - I/I REACT D/T INDWELLING URETHRAL CATHETER, INIT; N39.0 - URINARY TRACT INFECTION, SITE NOT SPECIFIED (3) Hyperlipidemia Assessment/Plan: On atorvastatin 10 mg daily; LDL < 70 mg/dL. Code(s): E78.5 - HYPERLIPIDEMIA, UNSPECIFIED (4) Acute on chronic diastolic CHF (congestive heart failure), NYHA class 1 Assessment/Plan: Pt received IV fluids; now mild SOB and wheezing. +JVD F/u BNP and CXR. BUN/Cr, electrolytes, daily weight, Is and Os. Addendum: Repeat CXR done now shows new congestive changes. IVF were stopped; give furosemide 40 mg IVP once. Code(s): I50.33 - ACUTE ON CHRONIC DIASTOLIC (CONGESTIVE) HEART FAILURE
[2018-07-11] MEDS ORDERED: FUROSEMIDE 40 MG/4 ML INJECTABLE VIAL IVPUSH ONE (21:27)
[2018-07-11 21:48] LABS: N-TERMINAL BNP 6567.3 pg/ml (5-450)
[2018-07-11] MEDS: ATORVASTATIN CA 10 MG TABLET (FP) PO SCH (22:02)
[2018-07-11] MEDS: ACETAMINOPHEN 325 MG TABLET (FP) PO PRN (22:02)
[2018-07-12] MEDS ORDERED: PIPERACILLIN/TAZOBACTAM 2.25 GM VIAL IVPB ONE ×4 (01:02→21:22)
[2018-07-12] MEDS ORDERED: DEXTROSE 5%-WATER - 50 ML IVPB ONE ×4 (01:03→21:22)
[2018-07-12] MEDS: PIPERACILLIN/TAZOB 2.25 GM 2.25 GM in DEXTROSE 5%-WATER - 50 ML IVPB SCH ×4 (03:38→22:13)
[2018-07-12] MEDS: RANITIDINE HCL 150 MG TABLET (FP) PO SCH (09:04)
[2018-07-12] MEDS: PARoxetine HCL 10 MG TABLET (FP) PO SCH (09:04)
--- NOTE | 2018-07-12 10:24 | PN ---
Progress Note, Physician History of Present Illness: he patient is an 88 year old male, with a significant PMH of stroke, cholecystectomy, hypertension, hyperlipidemia, prediabetes, BPH w/ burt, phimosis s/p circumcision, anxiety, who presents to the emergency department with generalized weakness over the past 2-3 days. Noted to have elevated TNI on admission. The patient denies chest pain, shortness of breath, headache and dizziness. Denies fever, chills, nausea, vomit, diarrhea and constipation. Denies dysuria, frequency, urgency and hematuria. - Current Medication List Current Medications: Active Medications Acetaminophen (Tylenol -) 650 mg PO Q6H PRN PRN Reason: PAIN OR FEVER Last Admin: 07/11/18 22:02 Dose: 650 mg Atorvastatin Calcium (Lipitor -) 10 mg PO HS [facility] Last Admin: 07/11/18 22:02 Dose: 10 mg Piperacillin Sod/Tazobactam (Sod 2.25 gm/ Dextrose) 50 mls @ 100 mls/hr IVPB Q6H-IV [facility]; Protocol Last Admin: 07/12/18 09:04 Dose: 100 mls/hr Paroxetine HCl (Paxil -) 10 mg PO DAILY [facility] Last Admin: 07/12/18 09:04 Dose: 10 mg Ranitidine HCl (Zantac -) 150 mg PO DAILY [facility] Last Admin: 07/12/18 09:04 Dose: 150 mg - Objective Vital Signs: Vital Signs Temperature 97.9 F 07/12/18 07:42 Pulse Rate 84 07/12/18 08:35 Respiratory Rate 24 H 07/12/18 08:35 Blood Pressure 105/59 L 07/12/18 08:35 O2 Sat by Pulse Oximetry (%) 96 07/11/18 21:00 Eyes: Yes: WNL, Conjunctiva Clear, EOM Intact HENT: Yes: WNL, Atraumatic, Normocephalic Neck: Yes: WNL, Supple, Trachea Midline Cardiovascular: Yes: WNL, Regular Rate and Rhythm Respiratory: Yes: WNL, Regular, CTA Bilaterally Gastrointestinal: Yes: WNL, Normal Bowel Sounds Genitourinary: Yes: WNL Musculoskeletal: Yes: WNL Extremities: Yes: WNL Edema: No Integumentary: Yes: WNL Neurological: Yes: WNL, Alert, Oriented ...Motor Strength: WNL Psychiatric: Yes: WNL Labs: CBC, BMP 07/11/18 09:30 07/11/18 09:30 INR, PTT INR 1.15 (0.83-1.09) H 07/06/18 20:11 Assessment/Plan - Problems (1) Elevated troponin I level Assessment/Plan: TNI 0.3-->0.48-->0.54-->0.31 today. No chest pain. EKG: no acute ST-T changes.; ? old IW [place].(though no mention of regional wall motion abnormalities on ECHO; normal LVEF; mild LVH. Sepsis is likely the principle contributer to pt's TNI elevation. Discussed pt with his daughter: until a few weeks ago, her father was walking up a flight of steps sveral times a day at home to the bathroom, and walking another set of steps down to a lower floor without chest pain or dyspnea. From a cardiac standpoint, ther are no absolute contraindications for Mr. Burch to undergo porstate surgery. Code(s): R74.8 - ABNORMAL LEVELS OF OTHER SERUM ENZYMES (2) UTI (urinary tract infection) due to urinary indwelling catheter Assessment/Plan: hx urinary retention (BPH: planned for TURP in the near future; cleared from cardiac perspective for the procedure.). F/u with urologist. Code(s): T83.511A - I/I REACT D/T INDWELLING URETHRAL CATHETER, INIT; N39.0 - URINARY TRACT INFECTION, SITE NOT SPECIFIED (3) Hyperlipidemia Assessment/Plan: On atorvastatin 10 mg daily; LDL < 70 mg/dL. Code(s): E78.5 - HYPERLIPIDEMIA, UNSPECIFIED (4) Acute on chronic diastolic CHF (congestive heart failure), NYHA class 1 Assessment/Plan: Pt received IV fluids; now mild SOB F/u BNP and CXR. BUN/Cr, electrolytes, daily weight, Is and Os. will strat lasix 40 PO QD Code(s): I50.33 - ACUTE ON CHRONIC DIASTOLIC (CONGESTIVE) HEART FAILURE
--- NOTE | 2018-07-12 10:44 | EKG ---
Test Reason : Blood Pressure : / mmHG Vent. Rate : 088 BPM Atrial Rate : 088 BPM P-R Int : 154 ms QRS Dur : 108 ms QT Int : 380 ms P-R-T Axes : 031 -62 024 degrees QTc Int : 459 ms SINUS RHYTHM WITH PREMATURE ATRIAL COMPLEXES LEFT AXIS DEVIATION LOW VOLTAGE QRS RIGHT BUNDLE BRANCH BLOCK INFERIOR INFARCT (CITED ON OR BEFORE 07-JUL-2018) ABNORMAL ECG WHEN COMPARED WITH ECG OF 10-JUL-2018 10:22, SINUS RHYTHM HAS REPLACED ATRIAL FIBRILLATION Confirmed by PATTY ENGLE, ANNE ([id number]) on 07/12/2018 10:43:52 AM Referred By: VICKEY OSUNA DRAlicja Confirmed By:ANNE BRAMBILA MD
[2018-07-12] MEDS: FUROSEMIDE 40 MG TABLET (FP) PO SCH (11:51)
--- NOTE | 2018-07-12 12:27 | PN ---
Progress Note (short form) - Note Progress Note: CBC, BMP 07/11/18 09:30 07/11/18 09:30 Vital Signs Period Temp Pulse Resp BP Sys/Leon Pulse Ox Last 24 Hr 97.9 F-98.2 F 83-86 20-24 105-126/56-69 96 S1S2 RRR lungs cta abd soft non tender burt with clear urine tr edema awake, alert oriented x3, mentation is much better c/o chest congestion was more confused yesterday-repeat head ct negative admitted for increased fatigue and confusion due to urinary sepsis-Pseudomonas in urine, blood cultures negative indwelling burt catheter for past 1 months s/p recent circumcision iv abx burt was changed after admission cont zosyn po lasix physical therpay GI/DVT prophylaxis will contact for TURP cardiology input appreciated pt is full code
--- NOTE | 2018-07-12 12:52 | PN ---
Progress Note, Physician History of Present Illness: patient stable daughter says he has breathing difficulty xray done shows retrocardiac infiltrate daughter says he is very weak - Current Medication List Current Medications: Active Medications Acetaminophen (Tylenol -) 650 mg PO Q6H PRN PRN Reason: PAIN OR FEVER Last Admin: 07/11/18 22:02 Dose: 650 mg Atorvastatin Calcium (Lipitor -) 10 mg PO HS [facility] Last Admin: 07/11/18 22:02 Dose: 10 mg Furosemide (Lasix -) 40 mg PO DAILY [facility] Last Admin: 07/12/18 11:51 Dose: 40 mg Piperacillin Sod/Tazobactam (Sod 2.25 gm/ Dextrose) 50 mls @ 100 mls/hr IVPB Q6H-IV [facility]; Protocol Last Admin: 07/12/18 09:04 Dose: 100 mls/hr Multi-Ingredient Ointment (Zinc Oxide) 1 applic TP BID [facility] Nystatin (Nystop Powder -) 1 applic TP DAILY [facility] Paroxetine HCl (Paxil -) 10 mg PO DAILY [facility] Last Admin: 07/12/18 09:04 Dose: 10 mg Ranitidine HCl (Zantac -) 150 mg PO DAILY [facility] Last Admin: 07/12/18 09:04 Dose: 150 mg - Objective Vital Signs: Vital Signs Temperature 98.1 F 07/12/18 09:30 Pulse Rate 83 07/12/18 11:12 Respiratory Rate 24 H 07/12/18 11:12 Blood Pressure 113/60 07/12/18 11:12 O2 Sat by Pulse Oximetry (%) 96 07/11/18 21:00 Constitutional: Yes: Calm, Mild Distress Cardiovascular: Yes: S1, S2 Respiratory: Yes: Regular, On Nasal O2 Gastrointestinal: Yes: Normal Bowel Sounds, Soft Genitourinary: Yes: Burt Present, Other Musculoskeletal: Yes: WNL Extremities: Yes: WNL Neurological: Yes: Alert, Oriented Psychiatric: Yes: Alert, Oriented Labs: CBC, BMP 07/11/18 09:30 07/11/18 09:30 INR, PTT INR 1.15 (0.83-1.09) H 07/06/18 20:11 - ....Imaging X-ray: Report Reviewed, Image Reviewed Assessment/Plan Patient is an 88 year old male with past medical history of CVA, HTN, HLD, pre- DM, BPH with burt (May 2018) and phimosis s/p circumcision (2 weeks ago), presented with generalized weakness for 1 day. sepsis uti increaed troponin r/o prostatitis dehydration leukocytosis plan continue abx await for urology plan rest as per the team patient improving all cx reports noted xray chest seen diuresis as per cardiac
[2018-07-12] MEDS ORDERED: FUROSEMIDE 40 MG/4 ML INJECTABLE VIAL IVPUSH ONE (13:00)
[2018-07-12] MEDS: ZINC OXIDE 20% TOPICAL OINTMENT 30 GM TUBE TP SCH ×2 (13:38→22:14)
[2018-07-12] MEDS: NYSTATIN POWDER 100,000 UNITS/GM - 15 GM TOPICAL POWDER TP SCH (13:38)
[2018-07-12] MEDS: ACETAMINOPHEN 325 MG TABLET (FP) PO PRN (14:24)
[2018-07-12] MEDS: ATORVASTATIN CA 10 MG TABLET (FP) PO SCH (22:13)
[2018-07-13] MEDS ORDERED: PIPERACILLIN/TAZOBACTAM 2.25 GM VIAL IVPB ONE ×4 (00:44→22:22)
[2018-07-13] MEDS ORDERED: DEXTROSE 5%-WATER - 50 ML IVPB ONE ×4 (00:44→22:22)
[2018-07-13] MEDS: PIPERACILLIN/TAZOB 2.25 GM 2.25 GM in DEXTROSE 5%-WATER - 50 ML IVPB SCH ×4 (02:07→22:41)
--- NOTE | 2018-07-13 09:43 | PN ---
Progress Note, Physician History of Present Illness: stable feels much better had dirrhoea - Current Medication List Current Medications: Active Medications Acetaminophen (Tylenol -) 650 mg PO Q6H PRN PRN Reason: PAIN OR FEVER Last Admin: 07/12/18 14:24 Dose: 650 mg Atorvastatin Calcium (Lipitor -) 10 mg PO HS [facility] Last Admin: 07/12/18 22:13 Dose: 10 mg Furosemide (Lasix -) 40 mg PO DAILY [facility] Last Admin: 07/12/18 11:51 Dose: 40 mg Piperacillin Sod/Tazobactam (Sod 2.25 gm/ Dextrose) 50 mls @ 100 mls/hr IVPB Q6H-IV [facility]; Protocol Last Admin: 07/13/18 02:07 Dose: 100 mls/hr Multi-Ingredient Ointment (Zinc Oxide) 1 applic TP BID [facility] Last Admin: 07/12/18 22:14 Dose: 1 applic Nystatin (Nystop Powder -) 1 applic TP DAILY [facility] Last Admin: 07/12/18 13:38 Dose: 1 applic Paroxetine HCl (Paxil -) 10 mg PO DAILY [facility] Last Admin: 07/12/18 09:04 Dose: 10 mg Ranitidine HCl (Zantac -) 150 mg PO DAILY [facility] Last Admin: 07/12/18 09:04 Dose: 150 mg - Objective Vital Signs: Vital Signs Temperature 98.1 F 07/13/18 06:00 Pulse Rate 83 07/13/18 06:00 Respiratory Rate 20 07/13/18 06:00 Blood Pressure 132/56 L 07/13/18 06:00 O2 Sat by Pulse Oximetry (%) 98 07/12/18 21:00 Constitutional: Yes: No Distress, Calm Cardiovascular: Yes: S1, S2 Respiratory: Yes: Regular, CTA Bilaterally Gastrointestinal: Yes: Normal Bowel Sounds, Soft Genitourinary: Yes: Burt Present Musculoskeletal: Yes: WNL Extremities: Yes: WNL Neurological: Yes: Alert, Oriented Psychiatric: Yes: Alert, Oriented Labs: CBC, BMP 07/11/18 09:30 07/11/18 09:30 INR, PTT INR 1.15 (0.83-1.09) H 07/06/18 20:11 Assessment/Plan Patient is an 88 year old male with past medical history of CVA, HTN, HLD, pre- DM, BPH with burt (May 2018) and phimosis s/p circumcision (2 weeks ago), presented with generalized weakness for 1 day. sepsis uti increaed troponin r/o prostatitis dehydration leukocytosis plan continue abx await for urology plan rest as per the team patient improving all cx reports noted xray chest seen diuresis as per cardiac await for cdiff result
--- NOTE | 2018-07-13 09:46 | PN ---
Progress Note (short form) - Note Progress Note: Vital Signs Period Temp Pulse Resp BP Sys/Leon Pulse Ox Last 24 Hr 97.7 F-98.2 F 83-100 20-28 113-134/56-68 96-98 S1S2 RRR lungs cta anteriorly abd soft non tender burt with clear urine tr edema awake, alert oriented x3, mentation is much better has had increased chest congestion with associated wheezing yesterday-feels better after iv lasix admitted for increased fatigue and confusion due to urinary sepsis-Pseudomonas in urine, blood cultures negative indwelling burt catheter for past 1 months s/p recent circumcision iv abx burt was changed after admission mild CHF cont zosyn po lasix physical therpay GI/DVT prophylaxis hold TURP while his resp.status stabilizes pt is full code
[2018-07-13] MEDS: PARoxetine HCL 10 MG TABLET (FP) PO SCH (10:28)
[2018-07-13] MEDS: RANITIDINE HCL 150 MG TABLET (FP) PO SCH (10:28)
[2018-07-13] MEDS: FUROSEMIDE 40 MG TABLET (FP) PO SCH (10:28)
--- NOTE | 2018-07-13 11:07 | PN ---
Progress Note (short form) - Note Progress Note: afebrile feels better no bladder spasms today burt draining yellow urine not medically cleared for TURP will postpone and plan for as outpt
[2018-07-13] MEDS: ZINC OXIDE 20% TOPICAL OINTMENT 30 GM TUBE TP SCH ×2 (15:23→22:41)
[2018-07-13] MEDS: NYSTATIN POWDER 100,000 UNITS/GM - 15 GM TOPICAL POWDER TP SCH (15:23)
[2018-07-13] MEDS: ACETAMINOPHEN 325 MG TABLET (FP) PO PRN ×2 (15:25→22:39)
[2018-07-13] MEDS: ATORVASTATIN CA 10 MG TABLET (FP) PO SCH (22:39)
[2018-07-14] MEDS ORDERED: PIPERACILLIN/TAZOBACTAM 2.25 GM VIAL IVPB ONE ×4 (00:59→21:47)
[2018-07-14] MEDS ORDERED: DEXTROSE 5%-WATER - 50 ML IVPB ONE ×4 (00:59→21:47)
[2018-07-14] MEDS: PIPERACILLIN/TAZOB 2.25 GM 2.25 GM in DEXTROSE 5%-WATER - 50 ML IVPB SCH ×4 (03:12→21:59)
[2018-07-14 07:48] LABS: BASO % 0.7 % (0-2.0); EOS % 3.5 % (0-4.5); HEMATOCRIT 35.8 % (35.4-49); HEMOGLOBIN 11.9 GM/dL (11.7-16.9); LYMPH % 7.9 % (8-40); MCH 28.2 pg (25.7-33.7); MCHC 33.1 g/dl (32.0-35.9); MEAN CELL VOLUME 85.2 fl (80-96); MEAN PLT VOLUME 10.5 fl (7.5-11.1); MONO % 5.4 % (3.8-10.2); NEUT % 82.5 % (42.8-82.8); PLATELET COUNT 253 K/MM3 (134-434); RDW 14.8 % (11.9-15.9); WHITE BLOOD COUNT 14.7 K/mm3 (4.0-10.0)
[2018-07-14 09:14] LABS: ALBUMIN 2.2 g/dl (3.4-5.0); ANION GAP 8 MMOL/L (8-16); BLOOD UREA NITROGEN 36 mg/dL (7-18); CALCIUM 8.5 mg/dL (8.5-10.1); CHLORIDE 109 mmol/L (98-107); CO2 26 mmol/L (21-32); CREATININE 1.9 mg/dL (0.55-1.3); GLUCOSE,RANDOM 154 mg/dL (74-106); POTASSIUM 3.7 mmol/L (3.5-5.1); SODIUM 143 mmol/L (136-145); TOT PROT 5.3 g/dl (6.4-8.2)
[2018-07-14 09:15] LABS: ALK PHOS 225 U/L (45-117); BILIRUBIN,TOTAL 0.7 mg/dL (0.2-1); SGOT/AST 34 U/L (15-37); SGPT/ALT 46 U/L (13-61)
[2018-07-14] MEDS: PARoxetine HCL 10 MG TABLET (FP) PO SCH (10:44)
[2018-07-14] MEDS: FUROSEMIDE 40 MG TABLET (FP) PO SCH (10:44)
[2018-07-14] MEDS: RANITIDINE HCL 150 MG TABLET (FP) PO SCH (10:44)
[2018-07-14] MEDS: NYSTATIN POWDER 100,000 UNITS/GM - 15 GM TOPICAL POWDER TP SCH (10:47)
[2018-07-14] MEDS: ZINC OXIDE 20% TOPICAL OINTMENT 30 GM TUBE TP SCH ×2 (10:47→22:03)
[2018-07-14 12:10] LABS: ANISOCYTOSIS 0; MACROCYTOSIS 0; PLATELET ESTIMATE NORMAL
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
--- NOTE | 2018-07-14 14:05 | PN ---
Progress Note, Physician History of Present Illness: patient stable left elbow redness pain present - Current Medication List Current Medications: Active Medications Acetaminophen (Tylenol -) 650 mg PO Q6H PRN PRN Reason: PAIN OR FEVER Last Admin: 07/13/18 22:39 Dose: 650 mg Atorvastatin Calcium (Lipitor -) 10 mg PO HS [facility] Last Admin: 07/13/18 22:39 Dose: 10 mg Furosemide (Lasix -) 40 mg PO DAILY [facility] Last Admin: 07/14/18 10:44 Dose: 40 mg Piperacillin Sod/Tazobactam (Sod 2.25 gm/ Dextrose) 50 mls @ 100 mls/hr IVPB Q6H-IV [facility]; Protocol Last Admin: 07/14/18 10:44 Dose: 100 mls/hr Multi-Ingredient Ointment (Zinc Oxide) 1 applic TP BID [facility] Last Admin: 07/14/18 10:47 Dose: 1 applic Nystatin (Nystop Powder -) 1 applic TP DAILY [facility] Last Admin: 07/14/18 10:47 Dose: 1 applic Paroxetine HCl (Paxil -) 10 mg PO DAILY [facility] Last Admin: 07/14/18 10:44 Dose: 10 mg Ranitidine HCl (Zantac -) 150 mg PO DAILY [facility] Last Admin: 07/14/18 10:44 Dose: 150 mg - Objective Vital Signs: Vital Signs Temperature 98.4 F 07/14/18 10:33 Pulse Rate 88 07/14/18 10:33 Respiratory Rate 18 07/14/18 10:33 Blood Pressure 146/52 L 07/14/18 10:33 O2 Sat by Pulse Oximetry (%) 98 07/13/18 21:00 Constitutional: Yes: Calm, Mild Distress Cardiovascular: Yes: S1, S2 Gastrointestinal: Yes: Normal Bowel Sounds, Soft Musculoskeletal: Yes: WNL Extremities: Yes: Erythema (left elbow) Neurological: Yes: Alert, Oriented Psychiatric: Yes: Alert, Oriented Labs: CBC, BMP 07/14/18 06:20 07/14/18 06:20 INR, PTT INR 1.15 (0.83-1.09) H 07/06/18 20:11 Assessment/Plan Patient is an 88 year old male with past medical history of CVA, HTN, HLD, pre- DM, BPH with burt (May 2018) and phimosis s/p circumcision (2 weeks ago), presented with generalized weakness for 1 day. sepsis uti increaed troponin r/o prostatitis dehydration leukocytosis plan continue abx await for urology plan rest as per the team patient improving all cx reports noted
[2018-07-14] MEDS: ATORVASTATIN CA 10 MG TABLET (FP) PO SCH (21:59)
[2018-07-14] MEDS: ACETAMINOPHEN 325 MG TABLET (FP) PO PRN (21:59)
[2018-07-15] MEDS ORDERED: PIPERACILLIN/TAZOBACTAM 2.25 GM VIAL IVPB ONE ×4 (01:33→22:24)
[2018-07-15] MEDS ORDERED: DEXTROSE 5%-WATER - 50 ML IVPB ONE ×4 (01:33→22:24)
[2018-07-15] MEDS: PIPERACILLIN/TAZOB 2.25 GM 2.25 GM in DEXTROSE 5%-WATER - 50 ML IVPB SCH ×4 (02:56→21:05)
--- NOTE | 2018-07-15 07:14 | PN ---
Progress Note, Physician Chief Complaint: Pt samuel; denies chest pain or shortness of breath. History of Present Illness: he patient is an 88 year old white male, with a significant PMH of stroke, cholecystectomy, hypertension, hyperlipidemia, prediabetes, BPH w/ burt, phimosis s/p circumcision, anxiety, who presents to the emergency department with generalized weakness over the past 2-3 days. Noted to have elevated TNI on admission. The patient denies chest pain, shortness of breath, headache and dizziness. Denies fever, chills, nausea, vomit, diarrhea and constipation. Denies dysuria, frequency, urgency and hematuria. Allergies: NKA - Current Medication List Current Medications: Active Medications Acetaminophen (Tylenol -) 650 mg PO Q6H PRN PRN Reason: PAIN OR FEVER Last Admin: 07/14/18 21:59 Dose: 650 mg Atorvastatin Calcium (Lipitor -) 10 mg PO HS [facility] Last Admin: 07/14/18 21:59 Dose: 10 mg Furosemide (Lasix -) 40 mg PO DAILY [facility] Last Admin: 07/14/18 10:44 Dose: 40 mg Piperacillin Sod/Tazobactam (Sod 2.25 gm/ Dextrose) 50 mls @ 100 mls/hr IVPB Q6H-IV [facility]; Protocol Last Admin: 07/15/18 02:56 Dose: 100 mls/hr Multi-Ingredient Ointment (Zinc Oxide) 1 applic TP BID [facility] Last Admin: 07/14/18 22:03 Dose: 1 applic Nystatin (Nystop Powder -) 1 applic TP DAILY [facility] Last Admin: 07/14/18 10:47 Dose: 1 applic Paroxetine HCl (Paxil -) 10 mg PO DAILY [facility] Last Admin: 07/14/18 10:44 Dose: 10 mg Ranitidine HCl (Zantac -) 150 mg PO DAILY [facility] Last Admin: 07/14/18 10:44 Dose: 150 mg - Objective Vital Signs: Vital Signs Temperature 98.3 F 07/15/18 06:25 Pulse Rate 79 07/15/18 06:25 Respiratory Rate 20 07/15/18 06:25 Blood Pressure 116/62 07/15/18 06:25 O2 Sat by Pulse Oximetry (%) 95 07/14/18 21:00 Constitutional: Yes: Calm Eyes: Yes: WNL HENT: Yes: WNL Neck: Yes: WNL Cardiovascular: Yes: S1, S2 (split) Respiratory: Yes: WNL Gastrointestinal: Yes: Soft ...Rectal Exam: Yes: Deferred Genitourinary: No: Anuria Breast(s): Yes: WNL Musculoskeletal: Yes: Muscle Weakness Extremities: Yes: Cool Edema: No Peripheral Pulses WNL: Yes Integumentary: Yes: Other (left elbow swollen, tender) Psychiatric: Yes: Alert, Oriented Labs: CBC, BMP 07/14/18 06:20 07/14/18 06:20 INR, PTT INR 1.15 (0.83-1.09) H 07/06/18 20:11 Problem List - Problems (1) Elevated troponin I level Assessment/Plan: TNI 0.3-->0.48-->0.54-->0.31 No chest pain. EKG: no acute ST-T changes.; ? old IW [place].(though no mention of regional wall motion abnormalities on ECHO; normal LVEF; mild LVH). Sepsis is likely the principle contributor to pt's TNI elevation. Discussed pt with his daughter: until a few weeks ago, her father was walking up a flight of steps several times a day at home to the bathroom, and walking another set of steps down to a lower floor without chest pain or dyspnea. From a cardiac standpoint, there are no absolute contraindications for Mr. Burch to undergo prostate surgery. Code(s): R74.8 - ABNORMAL LEVELS OF OTHER SERUM ENZYMES (2) UTI (urinary tract infection) due to urinary indwelling catheter Assessment/Plan: hx urinary retention (BPH: planned for TURP in the near future; cleared from cardiac perspective for the procedure). F/u with urologist. Code(s): T83.511A - I/I REACT D/T INDWELLING URETHRAL CATHETER, INIT; N39.0 - URINARY TRACT INFECTION, SITE NOT SPECIFIED (3) Hyperlipidemia Assessment/Plan: On atorvastatin 10 mg daily; LDL < 70 mg/dL (hx CVA). Code(s): E78.5 - HYPERLIPIDEMIA, UNSPECIFIED (4) Acute on chronic diastolic CHF (congestive heart failure), NYHA class 1 Assessment/Plan: Improving episode of acute CHF after diuretics. Code(s): I50.33 - ACUTE ON CHRONIC DIASTOLIC (CONGESTIVE) HEART FAILURE (5) Gout Assessment/Plan: give hx of gout; now with left elbow swelling and tenderness. F/u workup. Code(s): M10.9 - GOUT, UNSPECIFIED
--- NOTE | 2018-07-15 07:21 | PN ---
Progress Note, Physician - Current Medication List Current Medications: Active Medications Acetaminophen (Tylenol -) 650 mg PO Q6H PRN PRN Reason: PAIN OR FEVER Last Admin: 07/14/18 21:59 Dose: 650 mg Atorvastatin Calcium (Lipitor -) 10 mg PO HS [facility] Last Admin: 07/14/18 21:59 Dose: 10 mg Furosemide (Lasix -) 40 mg PO DAILY [facility] Last Admin: 07/14/18 10:44 Dose: 40 mg Piperacillin Sod/Tazobactam (Sod 2.25 gm/ Dextrose) 50 mls @ 100 mls/hr IVPB Q6H-IV [facility]; Protocol Last Admin: 07/15/18 02:56 Dose: 100 mls/hr Multi-Ingredient Ointment (Zinc Oxide) 1 applic TP BID [facility] [place] Last Admin: 07/14/18 22:03 Dose: 1 applic Nystatin (Nystop Powder -) 1 applic TP DAILY [facility] [place] Last Admin: 07/14/18 10:47 Dose: 1 applic Paroxetine HCl (Paxil -) 10 mg PO DAILY [facility] [place] Last Admin: 07/14/18 10:44 Dose: 10 mg Ranitidine HCl (Zantac -) 150 mg PO DAILY [facility] Last Admin: 07/14/18 10:44 Dose: 150 mg - Objective Vital Signs: Vital Signs Temperature 98.3 F 07/15/18 06:25 Pulse Rate 79 07/15/18 06:25 Respiratory Rate 20 07/15/18 06:25 Blood Pressure 116/62 07/15/18 06:25 O2 Sat by Pulse Oximetry (%) 95 07/14/18 21:00 Labs: CBC, BMP 07/14/18 06:20 07/14/18 06:20 INR, PTT INR 1.15 (0.83-1.09) H 07/06/18 20:11 Problem List - Problems (1) Elevated troponin I level Code(s): R74.8 - ABNORMAL LEVELS OF OTHER SERUM ENZYMES (2) UTI (urinary tract infection) due to urinary indwelling catheter Code(s): T83.511A - I/I REACT D/T INDWELLING URETHRAL CATHETER, INIT; N39.0 - URINARY TRACT INFECTION, SITE NOT SPECIFIED (3) Hyperlipidemia Code(s): E78.5 - HYPERLIPIDEMIA, UNSPECIFIED (4) Acute on chronic diastolic CHF (congestive heart failure), NYHA class 1 Code(s): I50.33 - ACUTE ON CHRONIC DIASTOLIC (CONGESTIVE) HEART FAILURE (5) Gout Code(s): M10.9 - GOUT, UNSPECIFIED
[2018-07-15] MEDS: RANITIDINE HCL 150 MG TABLET (FP) PO SCH (10:14)
[2018-07-15] MEDS: PARoxetine HCL 10 MG TABLET (FP) PO SCH (10:14)
[2018-07-15] MEDS: FUROSEMIDE 40 MG TABLET (FP) PO SCH (10:14)
--- NOTE | 2018-07-15 13:22 | PN ---
Progress Note, Physician History of Present Illness: Pt is alert, afebrile. Has Lt elbow pain but states it has decreased since yesterday. Has no other specific complaints. - Current Medication List Current Medications: Active Medications Acetaminophen (Tylenol -) 650 mg PO Q6H PRN PRN Reason: PAIN OR FEVER Last Admin: 07/14/18 21:59 Dose: 650 mg Atorvastatin Calcium (Lipitor -) 10 mg PO HS [facility] Last Admin: 07/14/18 21:59 Dose: 10 mg Furosemide (Lasix -) 40 mg PO DAILY [facility] Last Admin: 07/15/18 10:14 Dose: 40 mg Piperacillin Sod/Tazobactam (Sod 2.25 gm/ Dextrose) 50 mls @ 100 mls/hr IVPB Q6H-IV [facility]; Protocol Last Admin: 07/15/18 10:14 Dose: 100 mls/hr Multi-Ingredient Ointment (Zinc Oxide) 1 applic TP BID [facility] Last Admin: 07/14/18 22:03 Dose: 1 applic Nystatin (Nystop Powder -) 1 applic TP DAILY [facility] Last Admin: 07/14/18 10:47 Dose: 1 applic Paroxetine HCl (Paxil -) 10 mg PO DAILY [facility] Last Admin: 07/15/18 10:14 Dose: 10 mg Ranitidine HCl (Zantac -) 150 mg PO DAILY [facility] Last Admin: 07/15/18 10:14 Dose: 150 mg - Objective Vital Signs: Vital Signs Temperature 98.3 F 07/15/18 06:25 Pulse Rate 79 07/15/18 06:25 Respiratory Rate 20 07/15/18 06:25 Blood Pressure 116/62 07/15/18 06:25 O2 Sat by Pulse Oximetry (%) 95 07/14/18 21:00 Constitutional: Yes: No Distress, Calm Cardiovascular: Yes: Regular Rate and Rhythm Respiratory: Yes: Regular Gastrointestinal: Yes: Normal Bowel Sounds, Soft, Abdomen, Obese Genitourinary: Yes: Burt Present Musculoskeletal: Yes: Other (Lt elbow mild erythema/tenderness (improved as per pt)) Neurological: Yes: Alert Labs: CBC, BMP 07/14/18 06:20 07/14/18 06:20 INR, PTT INR 1.15 (0.83-1.09) H 07/06/18 20:11 Microbiology 07/12/18 15:30 Stool Clostridium difficile Antigen (CLARA) - Final 07/12/18 15:30 Stool Clostridium difficile Toxin Assay - Final 07/06/18 20:15 Blood - Peripheral Venous Blood Culture - Final NO GROWTH AFTER 5 DAYS INCUBATION 07/06/18 20:11 Blood - Peripheral Venous Blood Culture - Final NO GROWTH AFTER 5 DAYS INCUBATION 07/06/18 20:27 Urine - Urine - Catheterized Urine Culture - Final Pseudomonas Aeruginosa - ....Imaging X-ray: Report Reviewed (limited study; no obvious fracture) Problem List - Problems (1) Sepsis Code(s): A41.9 - SEPSIS, UNSPECIFIED ORGANISM (2) UTI (urinary tract infection) due to urinary indwelling catheter Code(s): T83.511A - I/I REACT D/T INDWELLING URETHRAL CATHETER, INIT; N39.0 - URINARY TRACT INFECTION, SITE NOT SPECIFIED (3) Urinary retention due to benign prostatic hyperplasia Code(s): N40.1 - BENIGN PROSTATIC HYPERPLASIA WITH LOWER URINARY TRACT SYMP; R33.8 - OTHER RETENTION OF URINE Assessment/Plan 88 y.o. male with PMH of CVA with Lt hemiparesis, BPH/urinary obstruction with indwelling burt, HLD, HTN, phimosis s/p recent circumcision admitted with weakness/fever/leukocytosis Sepsis - resolved Lt elbow erythema/edema - ? cellulitis Complicated UTI/Indwelling burt Possible Prostatitis Urinary retention BPH CKD s/p CVA HTN HLD -- elbow xray results noted -- continue Zosyn for now -- consider MRI if no improvement in Lt elbow edema/erythema -- repeat cbc as wbc increased from previous pt currently afebrile, without distress
--- NOTE | 2018-07-15 13:43 | PN ---
Progress Note (short form) - Note Progress Note: CBC, BMP 07/14/18 06:20 07/14/18 06:20 Vital Signs Period Temp Pulse Resp BP Sys/Leon Pulse Ox Last 24 Hr 97.2 F-98.3 F 76-792 0-20 116-132/53-79 95 S1S2 RRR lungs cta abd soft non tender burt with clear urine tr edema awake, alert oriented x3, mentation is much better left elbow, slight erythema, no warmth, increased pain on extension and flexion dyspnea, cough resolved feels well admitted for increased fatigue and confusion due to urinary sepsis-Pseudomonas in urine, blood cultures negative indwelling burt catheter for past 1 months s/p recent circumcision iv abx burt was changed after admission mild CHF-resolved left elbow mild cellulitis vs. bursitis cont zosyn for now Day #6 po lasix physical therpay GI/DVT prophylaxis d/w and daughter, will defer urologic procedure as outpt and plan for STR early next week if ok with id add meloxicam for elbow
[2018-07-15] MEDS: NYSTATIN POWDER 100,000 UNITS/GM - 15 GM TOPICAL POWDER TP SCH (14:54)
[2018-07-15] MEDS: CELECOXIB 100 MG CAPSULE PO SCH ×2 (14:54→22:55)
[2018-07-15] MEDS: ZINC OXIDE 20% TOPICAL OINTMENT 30 GM TUBE TP SCH ×2 (14:54→23:06)
--- NOTE | 2018-07-15 18:40 | PN ---
Progress Note (short form) - Note Progress Note: Coverage for Dr Tania Cloud Chief Complaint: Events noted, notes reviewed, denies any chest pain or dyspnea History of Present Illness: Seen and examined. Events noted, notes reviewed, denies any chest pain or dyspnea - Current Medication List Current Medications Acetaminophen (Tylenol -) 650 mg PO Q6H PRN PRN Reason: PAIN OR FEVER Last Admin: 07/14/18 21:59 Dose: 650 mg Atorvastatin Calcium (Lipitor -) 10 mg PO HS [facility] Last Admin: 07/14/18 21:59 Dose: 10 mg Celecoxib (Celebrex -) 100 mg PO BID [facility] Last Admin: 07/15/18 14:54 Dose: 100 mg Furosemide (Lasix -) 40 mg PO DAILY [facility] Last Admin: 07/15/18 10:14 Dose: 40 mg Piperacillin Sod/Tazobactam (Sod 2.25 gm/ Dextrose) 50 mls @ 100 mls/hr IVPB Q6H-IV [facility]; Protocol Last Admin: 07/15/18 14:54 Dose: 100 mls/hr Multi-Ingredient Ointment (Zinc Oxide) 1 applic TP BID [facility] Last Admin: 07/15/18 14:54 Dose: 1 applic Nystatin (Nystop Powder -) 1 applic TP DAILY [facility] Last Admin: 07/15/18 14:54 Dose: 1 applic Paroxetine HCl (Paxil -) 10 mg PO DAILY [facility] Last Admin: 07/15/18 10:14 Dose: 10 mg Ranitidine HCl (Zantac -) 150 mg PO DAILY [facility] Last Admin: 07/15/18 10:14 Dose: 150 mg - Objective Vital Signs: Last Vital Signs Temp Pulse Resp BP Pulse Ox 98.5 F 84 20 109/52 L 95 07/15/18 13:49 07/15/18 13:49 07/15/18 13:49 07/15/18 13:49 07/15/18 09:00 Intake & Output 07/12/18 07/13/18 07/14/18 07/15/18 23:59 23:59 23:59 23:59 Intake Total 725 1975 1225 950 Output Total 2600 1600 1050 900 Balance -1875 375 175 50 Weight 197 lb 2 oz Constitutional: No Distress, Calm Neck: Supple Negative JVD Cardiovascular: S1 S2 Irregularly Irregular Respiratory: Diminished Breath Sounds at the Bases Bilaterally Gastrointestinal: Soft Benign Normal Bowel Sounds Ext: No Edema Labs: CBC, BMP 07/14/18 06:20 07/14/18 06:20 Hepatic Panel Total Bilirubin 0.7 mg/dL (0.2-1) 07/14/18 06:20 AST 34 U/L (15-37) 07/14/18 06:20 ALT 46 U/L (13-61) 07/14/18 06:20 Alkaline Phosphatase 225 U/L (45-117) H 07/14/18 06:20 Albumin 2.2 g/dl (3.4-5.0) L 07/14/18 06:20 INR, PTT INR 1.15 (0.83-1.09) H 07/06/18 20:11 Assessment/Plan ASSESSMENT: 1. Chronic class I NYHA classification diastolic LV failure, clinically compensated/euvolemic 2. 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 HTN 4. Hypercholesterolemia 5. Chronic kidney disease 6. UTI PLAN: 1. Ideally should be on B-Blockers unless contraindicated, hemodynamics permitting 2. Ideally should be on ACEI or ARBS unless contraindicated, hemodynamics permitting 3. Continue Lasix with close monitoring of renal function 4. Antibiotics as per renal service Luzmaria Nelson MD
[2018-07-15] MEDS: ATORVASTATIN CA 10 MG TABLET (FP) PO SCH (22:50)
[2018-07-15] MEDS: ACETAMINOPHEN 325 MG TABLET (FP) PO PRN (23:04)
[2018-07-16] MEDS ORDERED: PIPERACILLIN/TAZOBACTAM 2.25 GM VIAL IVPB ONE ×4 (02:03→20:18)
[2018-07-16] MEDS ORDERED: DEXTROSE 5%-WATER - 50 ML IVPB ONE ×4 (02:03→20:18)
[2018-07-16] MEDS: PIPERACILLIN/TAZOB 2.25 GM 2.25 GM in DEXTROSE 5%-WATER - 50 ML IVPB SCH ×4 (02:08→21:21)
[2018-07-16 07:03] LABS: BASO % 0.7 % (0-2.0); EOS % 5.4 % (0-4.5); HEMATOCRIT 34.5 % (35.4-49); HEMOGLOBIN 11.7 GM/dL (11.7-16.9); LYMPH % 7.5 % (8-40); MCHC 33.9 g/dl (32.0-35.9); MEAN CELL VOLUME 85.6 fl (80-96); MEAN PLT VOLUME 10.3 fl (7.5-11.1); MONO % 5.5 % (3.8-10.2); NEUT % 80.9 % (42.8-82.8); PLATELET COUNT 288 K/MM3 (134-434); RBC 4.03 M/mm3 (4.00-5.60); RDW 14.7 % (11.9-15.9); WHITE BLOOD COUNT 13.5 K/mm3 (4.0-10.0)
--- NOTE | 2018-07-16 07:32 | PN ---
Progress Note (short form) - Note Progress Note: Vital Signs Period Temp Pulse Resp BP Sys/Leon Pulse Ox Last 24 Hr 97.1 F-98.5 F 69-84 18-20 98-120/52-80 95-96 S1S2 RRR lungs cta abd soft non tender burt with clear urine tr edema awake, alert oriented x3 left elbow, decreased erythema, no warmth,improved pain on extension and flexion dyspnea, cough resolved feels well admitted for increased fatigue and confusion due to urinary sepsis-Pseudomonas in urine, blood cultures negative indwelling burt catheter for past 1 months s/p recent circumcision iv abx burt was changed after admission mild CHF-resolved left elbow inflammation-better cont zosyn for now Day #7 po lasix physical therpay GI/DVT prophylaxis d/w and daughter, will defer urologic procedure as outpt and plan for STR early next week if ok with id celebrex for elbow resume asa 81 mg since no urological procedure planned at this time
[2018-07-16 07:45] LABS: ALBUMIN 1.9 g/dl (3.4-5.0); ALK PHOS 248 U/L (45-117); ANION GAP 8 MMOL/L (8-16); BILIRUBIN,TOTAL 0.8 mg/dL (0.2-1); BLOOD UREA NITROGEN 42 mg/dL (7-18); CALCIUM 8.1 mg/dL (8.5-10.1); CHLORIDE 109 mmol/L (98-107); CO2 27 mmol/L (21-32); CREATININE 1.9 mg/dL (0.55-1.3); GLUCOSE,RANDOM 111 mg/dL (74-106); POTASSIUM 3.5 mmol/L (3.5-5.1); SGOT/AST 49 U/L (15-37); SGPT/ALT 62 U/L (13-61); SODIUM 144 mmol/L (136-145); TOT PROT 4.6 g/dl (6.4-8.2)
[2018-07-16] MEDS: RANITIDINE HCL 150 MG TABLET (FP) PO SCH (09:03)
[2018-07-16] MEDS: ASPIRIN COATED 81 MG TABLET.EC PO SCH (09:03)
[2018-07-16] MEDS: CELECOXIB 100 MG CAPSULE PO SCH ×2 (09:03→21:22)
[2018-07-16] MEDS: FUROSEMIDE 40 MG TABLET (FP) PO SCH (09:03)
[2018-07-16] MEDS: PARoxetine HCL 10 MG TABLET (FP) PO SCH (09:03)
[2018-07-16] MEDS: NYSTATIN POWDER 100,000 UNITS/GM - 15 GM TOPICAL POWDER TP SCH (11:26)
[2018-07-16] MEDS: ZINC OXIDE 20% TOPICAL OINTMENT 30 GM TUBE TP SCH ×2 (11:26→21:22)
--- NOTE | 2018-07-16 14:40 | PN ---
Progress Note (short form) - Note Progress Note: Coverage for Dr Tania Cloud Chief Complaint: Events noted, notes reviewed, denies any chest pain or dyspnea , complaining of weakness History of Present Illness: Seen and examined. Events noted, notes reviewed, denies any chest pain or dyspnea, complaining of weakness - Current Medication List Current Medications Acetaminophen (Tylenol -) 650 mg PO Q6H PRN PRN Reason: PAIN OR FEVER Last Admin: 07/15/18 23:04 Dose: 650 mg Aspirin (Ecotrin -) 81 mg PO DAILY [facility] Last Admin: 07/16/18 09:03 Dose: 81 mg Atorvastatin Calcium (Lipitor -) 10 mg PO HS [facility] Last Admin: 07/15/18 22:50 Dose: 10 mg Celecoxib (Celebrex -) 100 mg PO BID [facility] Last Admin: 07/16/18 09:03 Dose: 100 mg Furosemide (Lasix -) 40 mg PO DAILY [facility] Last Admin: 07/16/18 09:03 Dose: 40 mg Piperacillin Sod/Tazobactam (Sod 2.25 gm/ Dextrose) 50 mls @ 100 mls/hr IVPB Q6H-IV [facility]; Protocol Last Admin: 07/16/18 09:03 Dose: 100 mls/hr Multi-Ingredient Ointment (Zinc Oxide) 1 applic TP BID [facility] Last Admin: 07/16/18 11:26 Dose: 1 applic Nystatin (Nystop Powder -) 1 applic TP DAILY [facility] Last Admin: 07/16/18 11:26 Dose: 1 applic Paroxetine HCl (Paxil -) 10 mg PO DAILY [facility] Last Admin: 07/16/18 09:03 Dose: 10 mg Ranitidine HCl (Zantac -) 150 mg PO DAILY [facility] Last Admin: 07/16/18 09:03 Dose: 150 mg - Objective Vital Signs: Last Vital Signs Temp Pulse Resp BP Pulse Ox 97.1 F L 76 18 144/72 96 07/16/18 06:28 07/16/18 10:00 07/16/18 10:00 07/16/18 10:00 07/16/18 09:00 Intake & Output 07/13/18 07/14/18 07/15/18 07/16/18 23:59 23:59 23:59 23:59 Intake Total 1975 1225 1415 570 Output Total 1600 1050 1250 200 Balance 375 175 165 370 Weight 197 lb 2 oz 196 lb 4 oz Constitutional: No Distress, Calm Neck: Supple Negative JVD Cardiovascular: S1 S2 Regular Rate Rhythm Respiratory: Diminished Breath Sounds at the Bases Bilaterally Gastrointestinal: Soft Benign Normal Bowel Sounds Ext: No Edema Labs: CBC, BMP 07/16/18 06:25 07/16/18 06:25 Assessment/Plan ASSESSMENT: 1. Chronic class I NYHA classification diastolic LV failure, clinically compensated/euvolemic 2. 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 HTN 4. Hypercholesterolemia 5. Chronic kidney disease 6. UTI PLAN: 1. As outlined ideally should be on B-Blockers unless contraindicated, hemodynamics permitting 2. As outlined ideally should be on ACEI or ARBS unless contraindicated, hemodynamics permitting 3. Continue Lasix with close monitoring of renal function 4. Antibiotics as per renal service Luzmaria Nelson MD
--- NOTE | 2018-07-16 15:44 | PN ---
Progress Note, Physician History of Present Illness: Pt is doing well. Lt arm with decreased edema/erythema and tenderness. Remains afebrile. Daughter at bedside. - Current Medication List Current Medications: Active Medications Acetaminophen (Tylenol -) 650 mg PO Q6H PRN PRN Reason: PAIN OR FEVER Last Admin: 07/15/18 23:04 Dose: 650 mg Aspirin (Ecotrin -) 81 mg PO DAILY [facility] Last Admin: 07/16/18 09:03 Dose: 81 mg Atorvastatin Calcium (Lipitor -) 10 mg PO HS [facility] Last Admin: 07/15/18 22:50 Dose: 10 mg Celecoxib (Celebrex -) 100 mg PO BID [facility] Last Admin: 07/16/18 09:03 Dose: 100 mg Furosemide (Lasix -) 40 mg PO DAILY [facility] Last Admin: 07/16/18 09:03 Dose: 40 mg Piperacillin Sod/Tazobactam (Sod 2.25 gm/ Dextrose) 50 mls @ 100 mls/hr IVPB Q6H-IV [facility]; Protocol Last Admin: 07/16/18 09:03 Dose: 100 mls/hr Multi-Ingredient Ointment (Zinc Oxide) 1 applic TP BID [facility] Last Admin: 07/16/18 11:26 Dose: 1 applic Nystatin (Nystop Powder -) 1 applic TP DAILY [facility] Last Admin: 07/16/18 11:26 Dose: 1 applic Paroxetine HCl (Paxil -) 10 mg PO DAILY [facility] Last Admin: 07/16/18 09:03 Dose: 10 mg Ranitidine HCl (Zantac -) 150 mg PO DAILY [facility] Last Admin: 07/16/18 09:03 Dose: 150 mg - Objective Vital Signs: Vital Signs Temperature 97.7 F 07/16/18 14:44 Pulse Rate 76 07/16/18 14:44 Respiratory Rate 18 07/16/18 14:44 Blood Pressure 132/55 L 07/16/18 14:44 O2 Sat by Pulse Oximetry (%) 96 07/16/18 09:00 Constitutional: Yes: No Distress, Calm Cardiovascular: Yes: Pulse Irregular Respiratory: Yes: Regular Gastrointestinal: Yes: Normal Bowel Sounds, Soft Genitourinary: Yes: Burt Present Musculoskeletal: Yes: Other (less Lt elbow erythema/warmth/tenderness, good ROM) Integumentary: Yes: WNL Neurological: Yes: Alert Labs: CBC, BMP 07/16/18 06:25 07/16/18 06:25 INR, PTT INR 1.15 (0.83-1.09) H 07/06/18 20:11 Microbiology 07/12/18 15:30 Stool Clostridium difficile Antigen ([facility]) - Final 07/12/18 15:30 Stool Clostridium difficile Toxin Assay - Final 07/06/18 20:15 Blood - Peripheral Venous Blood Culture - Final NO GROWTH AFTER 5 DAYS INCUBATION 07/06/18 20:11 Blood - Peripheral Venous Blood Culture - Final NO GROWTH AFTER 5 DAYS INCUBATION 07/06/18 20:27 Urine - Urine - Catheterized Urine Culture - Final Pseudomonas Aeruginosa Problem List - Problems (1) Sepsis Code(s): A41.9 - SEPSIS, UNSPECIFIED ORGANISM (2) UTI (urinary tract infection) due to urinary indwelling catheter Code(s): T83.511A - I/I REACT D/T INDWELLING URETHRAL CATHETER, INIT; N39.0 - URINARY TRACT INFECTION, SITE NOT SPECIFIED (3) Urinary retention due to benign prostatic hyperplasia Code(s): N40.1 - BENIGN PROSTATIC HYPERPLASIA WITH LOWER URINARY TRACT SYMP; R33.8 - OTHER RETENTION OF URINE Assessment/Plan 88 y.o. male with PMH of CVA with Lt hemiparesis, BPH/urinary obstruction with indwelling burt, HLD, HTN, phimosis s/p recent circumcision admitted with weakness/fever/leukocytosis Sepsis - resolved Lt elbow cellulitis Complicated UTI/Indwelling burt +Pseudomonas Possible Prostatitis Urinary retention BPH CKD s/p CVA HTN HLD -- continue Zosyn -- wbc trending down, afebrile, vitals stable -- repeat cbc in a.m. clinically appears to be improving
[2018-07-16] MEDS: ATORVASTATIN CA 10 MG TABLET (FP) PO SCH (21:22)
[2018-07-17] MEDS ORDERED: DEXTROSE 5%-WATER - 50 ML IVPB ONE ×3 (00:08→23:29)
[2018-07-17] MEDS ORDERED: PIPERACILLIN/TAZOBACTAM 2.25 GM VIAL IVPB ONE ×4 (00:08→23:28)
[2018-07-17] MEDS: PIPERACILLIN/TAZOB 2.25 GM 2.25 GM in DEXTROSE 5%-WATER - 50 ML IVPB SCH ×4 (02:44→23:30)
[2018-07-17] MEDS: FUROSEMIDE 40 MG TABLET (FP) PO SCH (10:20)
[2018-07-17] MEDS: ASPIRIN COATED 81 MG TABLET.EC PO SCH (10:20)
[2018-07-17] MEDS: PARoxetine HCL 10 MG TABLET (FP) PO SCH (10:20)
[2018-07-17] MEDS: ZINC OXIDE 20% TOPICAL OINTMENT 30 GM TUBE TP SCH (10:20)
[2018-07-17] MEDS: RANITIDINE HCL 150 MG TABLET (FP) PO SCH (10:20)
[2018-07-17] MEDS: NYSTATIN POWDER 100,000 UNITS/GM - 15 GM TOPICAL POWDER TP SCH (10:21)
[2018-07-17] MEDS: CELECOXIB 100 MG CAPSULE PO SCH ×2 (10:40→23:30)
--- NOTE | 2018-07-17 13:21 | PN ---
Progress Note, Physician History of Present Illness: he patient is an 88 year old male, with a significant PMH of stroke, cholecystectomy, hypertension, hyperlipidemia, prediabetes, BPH w/ burt, phimosis s/p circumcision, anxiety, who presents to the emergency department with generalized weakness over the past 2-3 days. Noted to have elevated TNI on admission. The patient denies chest pain, shortness of breath, headache and dizziness. Denies fever, chills, nausea, vomit, diarrhea and constipation. Denies dysuria, frequency, urgency and hematuria. - Current Medication List Current Medications: Active Medications Acetaminophen (Tylenol -) 650 mg PO Q6H PRN PRN Reason: PAIN OR FEVER Last Admin: 07/15/18 23:04 Dose: 650 mg Aspirin (Ecotrin -) 81 mg PO DAILY [facility] Last Admin: 07/17/18 10:20 Dose: 81 mg Atorvastatin Calcium (Lipitor -) 10 mg PO HS [facility] Last Admin: 07/16/18 21:22 Dose: 10 mg Celecoxib (Celebrex -) 100 mg PO BID [facility] Last Admin: 07/17/18 10:40 Dose: 100 mg Furosemide (Lasix -) 40 mg PO DAILY [facility] Last Admin: 07/17/18 10:20 Dose: 40 mg Piperacillin Sod/Tazobactam (Sod 2.25 gm/ Dextrose) 50 mls @ 100 mls/hr IVPB Q6H-IV [facility]; Protocol Last Admin: 07/17/18 10:19 Dose: 100 mls/hr Multi-Ingredient Ointment (Zinc Oxide) 1 applic TP BID [facility] Last Admin: 07/17/18 10:20 Dose: 1 applic Nystatin (Nystop Powder -) 1 applic TP DAILY [facility] Last Admin: 07/17/18 10:21 Dose: 1 applic Paroxetine HCl (Paxil -) 10 mg PO DAILY [facility] Last Admin: 07/17/18 10:20 Dose: 10 mg Ranitidine HCl (Zantac -) 150 mg PO DAILY [facility] Last Admin: 07/17/18 10:20 Dose: 150 mg - Objective Vital Signs: Vital Signs Temperature 97.5 F L 07/17/18 09:00 Pulse Rate 81 07/17/18 09:00 Respiratory Rate 18 07/17/18 09:00 Blood Pressure 130/77 07/17/18 09:00 O2 Sat by Pulse Oximetry (%) 96 07/16/18 21:00 Eyes: Yes: WNL, Conjunctiva Clear, EOM Intact. No: Cataracts, Diplopia, Occular Prosthesis, PERRL, Ptosis, Sclera Icterus, Tearing, Other HENT: Yes: WNL, Atraumatic, Normocephalic Neck: Yes: WNL, Supple, Trachea Midline Cardiovascular: Yes: WNL, Regular Rate and Rhythm Respiratory: Yes: WNL, Regular, CTA Bilaterally Gastrointestinal: Yes: WNL, Normal Bowel Sounds Genitourinary: Yes: WNL Musculoskeletal: Yes: WNL Extremities: Yes: WNL Edema: No Integumentary: Yes: WNL Neurological: Yes: WNL, Alert, Oriented ...Motor Strength: WNL Psychiatric: Yes: WNL Labs: CBC, BMP 07/16/18 06:25 07/16/18 06:25 INR, PTT INR 1.15 (0.83-1.09) H 07/06/18 20:11 Assessment/Plan ASSESSMENT: 1. Chronic class I NYHA classification diastolic LV failure, clinically compensated/euvolemic 2. 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 HTN 4. Hypercholesterolemia 5. Chronic kidney disease 6. UTI PLAN: 1. As outlined ideally should be on B-Blockers unless contraindicated, hemodynamics permitting 2. As outlined ideally should be on ACEI or ARBS unless contraindicated, hemodynamics permitting 3. Continue Lasix with close monitoring of renal function 4. Antibiotics as per renal service
--- NOTE | 2018-07-17 14:20 | PN ---
Progress Note, Physician History of Present Illness: stable looks better wbc trending down - Current Medication List Current Medications: Active Medications Acetaminophen (Tylenol -) 650 mg PO Q6H PRN PRN Reason: PAIN OR FEVER Last Admin: 07/15/18 23:04 Dose: 650 mg Aspirin (Ecotrin -) 81 mg PO DAILY [facility] Last Admin: 07/17/18 10:20 Dose: 81 mg Atorvastatin Calcium (Lipitor -) 10 mg PO HS [facility] Last Admin: 07/16/18 21:22 Dose: 10 mg Celecoxib (Celebrex -) 100 mg PO BID [facility] Last Admin: 07/17/18 10:40 Dose: 100 mg Furosemide (Lasix -) 40 mg PO DAILY [facility] Last Admin: 07/17/18 10:20 Dose: 40 mg Piperacillin Sod/Tazobactam (Sod 2.25 gm/ Dextrose) 50 mls @ 100 mls/hr IVPB Q6H-IV [facility]; Protocol Last Admin: 07/17/18 10:19 Dose: 100 mls/hr Multi-Ingredient Ointment (Zinc Oxide) 1 applic TP BID [facility] Last Admin: 07/17/18 10:20 Dose: 1 applic Nystatin (Nystop Powder -) 1 applic TP DAILY [facility] Last Admin: 07/17/18 10:21 Dose: 1 applic Paroxetine HCl (Paxil -) 10 mg PO DAILY [facility] Last Admin: 07/17/18 10:20 Dose: 10 mg Ranitidine HCl (Zantac -) 150 mg PO DAILY [facility] Last Admin: 07/17/18 10:20 Dose: 150 mg - Objective Vital Signs: Vital Signs Temperature 97.5 F L 07/17/18 09:00 Pulse Rate 81 07/17/18 09:00 Respiratory Rate 18 07/17/18 09:00 Blood Pressure 130/77 07/17/18 09:00 O2 Sat by Pulse Oximetry (%) 96 07/16/18 21:00 Constitutional: Yes: No Distress, Calm Cardiovascular: Yes: S1, S2 Respiratory: Yes: Regular, CTA Bilaterally Gastrointestinal: Yes: Normal Bowel Sounds, Soft Genitourinary: Yes: Burt Present Musculoskeletal: Yes: WNL Extremities: Yes: Erythema (improved) Neurological: Yes: Alert, Oriented Psychiatric: Yes: Alert, Oriented Labs: CBC, BMP 07/16/18 06:25 07/16/18 06:25 INR, PTT INR 1.15 (0.83-1.09) H 07/06/18 20:11 Assessment/Plan Problem List - Problems (1) Sepsis Code(s): A41.9 - SEPSIS, UNSPECIFIED ORGANISM (2) UTI (urinary tract infection) due to urinary indwelling catheter Code(s): T83.511A - I/I REACT D/T INDWELLING URETHRAL CATHETER, INIT; N39.0 - URINARY TRACT INFECTION, SITE NOT SPECIFIED (3) Urinary retention due to benign prostatic hyperplasia Code(s): N40.1 - BENIGN PROSTATIC HYPERPLASIA WITH LOWER URINARY TRACT SYMP; R33.8 - OTHER RETENTION OF URINE Assessment/Plan 88 y.o. male with PMH of CVA with Lt hemiparesis, BPH/urinary obstruction with indwelling burt, HLD, HTN, phimosis s/p recent circumcision admitted with weakness/fever/leukocytosis Sepsis - resolved Lt elbow cellulitis Complicated UTI/Indwelling burt +Pseudomonas Possible Prostatitis Urinary retention BPH CKD s/p CVA HTN HLD wbc trending down plan continue abx close watch rest as per the team
[2018-07-17] MEDS ORDERED: DEXTROSE 5%-WATER - 100 ML IVPB ONE (14:25)
--- NOTE | 2018-07-17 15:06 | PN ---
Progress Note (short form) - Note Progress Note: CBC, BMP 07/16/18 06:25 07/16/18 06:25 Vital Signs Period Temp Pulse Resp BP Sys/Leon Pulse Ox Last 24 Hr 97.5 F-98.0 F 69-81 18-20 113-131/64-77 96 S1S2 RRR lungs cta abd soft non tender burt with pink urine tr edema awake, alert oriented x3 left elbow, decreased erythema, no warmth,improved pain on extension and flexion dyspnea, cough resolved feels well admitted for increased fatigue and confusion due to urinary sepsis-Pseudomonas in urine, blood cultures negative indwelling burt catheter for past 1 months s/p recent circumcision iv abx burt was changed after admission mild CHF-resolved left elbow inflammation-better cont zosyn for now Day #8 po lasix physical therpay GI/DVT prophylaxis d/w and daughter, will defer urologic procedure as outpt and plan for STR early next week if ok with id celebrex for elbow resume asa 81 mg since no urological procedure planned at this time irrigate burt dc planning after decision is made regarding oral abx switch
[2018-07-17] MEDS ORDERED: PT OWN MED DRAWER 7, Y5N ONE (19:48)
[2018-07-17] MEDS: ATORVASTATIN CA 10 MG TABLET (FP) PO SCH (23:30)
[2018-07-18] MEDS ORDERED: PIPERACILLIN/TAZOBACTAM 2.25 GM VIAL IVPB ONE ×3 (01:21→15:39)
[2018-07-18] MEDS ORDERED: DEXTROSE 5%-WATER - 50 ML IVPB ONE ×3 (01:21→15:39)
[2018-07-18] MEDS: ZINC OXIDE 20% TOPICAL OINTMENT 30 GM TUBE TP SCH ×2 (02:40→09:36)
[2018-07-18] MEDS: PIPERACILLIN/TAZOB 2.25 GM 2.25 GM in DEXTROSE 5%-WATER - 50 ML IVPB SCH ×3 (04:01→15:45)
[2018-07-18 08:54] LABS: BASO % 1.2 % (0-2.0); HEMATOCRIT 37.5 % (35.4-49); HEMOGLOBIN 12.6 GM/dL (11.7-16.9); LYMPH % 9.6 % (8-40); MCH 28.7 pg (25.7-33.7); MCHC 33.6 g/dl (32.0-35.9); MEAN CELL VOLUME 85.3 fl (80-96); MEAN PLT VOLUME 9.8 fl (7.5-11.1); MONO % 5.8 % (3.8-10.2); NEUT % 78.4 % (42.8-82.8); PLATELET COUNT 304 K/MM3 (134-434); RBC 4.39 M/mm3 (4.00-5.60); RDW 14.4 % (11.9-15.9); WHITE BLOOD COUNT 12.9 K/mm3 (4.0-10.0)
[2018-07-18] MEDS ORDERED: PT OWN MED DRAWER 7, Y5N ONE (09:30)
[2018-07-18] MEDS: ASPIRIN COATED 81 MG TABLET.EC PO SCH (09:34)
[2018-07-18] MEDS: PARoxetine HCL 10 MG TABLET (FP) PO SCH (09:34)
[2018-07-18] MEDS: FUROSEMIDE 40 MG TABLET (FP) PO SCH (09:34)
[2018-07-18] MEDS: CELECOXIB 100 MG CAPSULE PO SCH (09:34)
[2018-07-18] MEDS: RANITIDINE HCL 150 MG TABLET (FP) PO SCH (09:34)
[2018-07-18] MEDS: NYSTATIN POWDER 100,000 UNITS/GM - 15 GM TOPICAL POWDER TP SCH (09:37)
[2018-07-18 09:42] LABS: ALBUMIN 2.2 g/dl (3.4-5.0); ALK PHOS 216 U/L (45-117); ANION GAP 7 MMOL/L (8-16); BILIRUBIN,TOTAL 0.6 mg/dL (0.2-1); BLOOD UREA NITROGEN 36 mg/dL (7-18); CALCIUM 8.5 mg/dL (8.5-10.1); CHLORIDE 110 mmol/L (98-107); CO2 28 mmol/L (21-32); CREATININE 1.8 mg/dL (0.55-1.3); GLUCOSE,RANDOM 112 mg/dL (74-106); POTASSIUM 3.6 mmol/L (3.5-5.1); SGOT/AST 53 U/L (15-37); SGPT/ALT 68 U/L (13-61); SODIUM 145 mmol/L (136-145); TOT PROT 5.1 g/dl (6.4-8.2)
--- NOTE | 2018-07-18 12:04 | DS ---
Physical Examination Vital Signs: Vital Signs Temperature 98.2 F 07/18/18 09:33 Pulse Rate 68 07/18/18 09:33 Respiratory Rate 18 07/18/18 09:33 Blood Pressure 139/77 07/18/18 09:33 O2 Sat by Pulse Oximetry (%) 98 07/18/18 09:30 Constitutional: Yes: No Distress, Calm Eyes: Yes: EOM Intact HENT: Yes: Normocephalic Neck: Yes: Trachea Midline Cardiovascular: Yes: Regular Rate and Rhythm Respiratory: Yes: CTA Bilaterally Gastrointestinal: Yes: Normal Bowel Sounds, Soft Extremities: Yes: WNL Edema: No Integumentary: Yes: Other (left elbow skin intact) Neurological: Yes: WNL Labs: CBC, BMP 07/18/18 08:45 07/18/18 08:45 Discharge Summary Reason For Visit: SEPSIS Current Active Problems Acute on chronic diastolic CHF (congestive heart failure), NYHA class 1 (Acute) Elevated troponin I level (Acute) Gout (Acute) Hyperlipidemia (Acute) Sepsis (Acute) UTI (urinary tract infection) due to urinary indwelling catheter (Acute) Urinary retention due to benign prostatic hyperplasia (Acute) Hospital Course: admitted for increased fatigue and confusion due to urinary sepsis-Pseudomonas in urine, blood cultures negative indwelling burt catheter changed and irrigated as needed mild CHF-resolved with diurectics developed left elbow inflammation-better with abx d/w and daughter, will defer urologic procedure as outpt and plan for STR irrigate burt as needed Condition: Fair - Instructions Referrals: Hakan Johnson MD [Primary Care Provider] - Disposition: ALF FACILITY - Home Medications Comprehensive Discharge Medication List: Ambulatory Orders Enalapril Maleate 5 mg PO DAILY 07/06/18 Furosemide [Lasix] 40 mg PO DAILY 07/06/18 Paroxetine HCl [Paxil] 10 mg PO DAILY 07/06/18 Simvastatin 20 mg PO HS 07/06/18 Terazosin HCl 2 mg PO BID 07/06/18 Amoxicillin/Potassium Clav [Augmentin 500-125 Tablet] 1 each PO BID 5 Days tablet 07/18/18 Aspirin Coated [Ecotrin -] 81 mg PO DAILY tablet.ec 07/18/18 Nystatin Powder [Nystop Powder -] 1 applic TP DAILY applic 07/18/18 Ranitidine [Zantac -] 150 mg PO DAILY tablet 07/18/18 Zinc Oxide 1 applic TP BID tube 07/18/18
--- NOTE | 2018-07-18 12:42 | PN ---
Progress Note, Physician History of Present Illness: doing well no new issues wbc trending down patient feeling better - Current Medication List Current Medications: Active Medications Acetaminophen (Tylenol -) 650 mg PO Q6H PRN PRN Reason: PAIN OR FEVER Last Admin: 07/15/18 23:04 Dose: 650 mg Aspirin (Ecotrin -) 81 mg PO DAILY [facility] Last Admin: 07/18/18 09:34 Dose: 81 mg Atorvastatin Calcium (Lipitor -) 10 mg PO HS [facility] Last Admin: 07/17/18 23:30 Dose: 10 mg Celecoxib (Celebrex -) 100 mg PO BID [facility] Last Admin: 07/18/18 09:34 Dose: 100 mg Furosemide (Lasix -) 40 mg PO DAILY [facility] Last Admin: 07/18/18 09:34 Dose: 40 mg Piperacillin Sod/Tazobactam (Sod 2.25 gm/ Dextrose) 50 mls @ 100 mls/hr IVPB Q6H-IV [facility]; Protocol Last Admin: 07/18/18 09:35 Dose: 100 mls/hr Multi-Ingredient Ointment (Zinc Oxide) 1 applic TP BID [facility] Last Admin: 07/18/18 09:36 Dose: 1 applic Nystatin (Nystop Powder -) 1 applic TP DAILY [facility] Last Admin: 07/18/18 09:37 Dose: 1 applic Paroxetine HCl (Paxil -) 10 mg PO DAILY [facility] Last Admin: 07/18/18 09:34 Dose: 10 mg Ranitidine HCl (Zantac -) 150 mg PO DAILY [facility] Last Admin: 07/18/18 09:34 Dose: 150 mg - Objective Vital Signs: Vital Signs Temperature 98.2 F 07/18/18 09:33 Pulse Rate 68 07/18/18 09:33 Respiratory Rate 18 07/18/18 09:33 Blood Pressure 139/77 07/18/18 09:33 O2 Sat by Pulse Oximetry (%) 98 07/18/18 09:30 Constitutional: Yes: No Distress, Calm Cardiovascular: Yes: S1, S2 Respiratory: Yes: Regular, CTA Bilaterally Gastrointestinal: Yes: Normal Bowel Sounds, Soft Genitourinary: Yes: Burt Present Musculoskeletal: Yes: WNL Extremities: Yes: WNL Neurological: Yes: Alert, Oriented Psychiatric: Yes: Alert, Oriented Labs: CBC, BMP 07/18/18 08:45 07/18/18 08:45 INR, PTT INR 1.15 (0.83-1.09) H 07/06/18 20:11 Assessment/Plan Problem List - Problems (1) Sepsis Code(s): A41.9 - SEPSIS, UNSPECIFIED ORGANISM (2) UTI (urinary tract infection) due to urinary indwelling catheter Code(s): T83.511A - I/I REACT D/T INDWELLING URETHRAL CATHETER, INIT; N39.0 - URINARY TRACT INFECTION, SITE NOT SPECIFIED (3) Urinary retention due to benign prostatic hyperplasia Code(s): N40.1 - BENIGN PROSTATIC HYPERPLASIA WITH LOWER URINARY TRACT SYMP; R33.8 - OTHER RETENTION OF URINE Assessment/Plan 88 y.o. male with PMH of CVA with Lt hemiparesis, BPH/urinary obstruction with indwelling burt, HLD, HTN, phimosis s/p recent circumcision admitted with weakness/fever/leukocytosis Sepsis - resolved Lt elbow cellulitis Complicated UTI/Indwelling burt +Pseudomonas Possible Prostatitis Urinary retention BPH CKD s/p CVA HTN HLD wbc trending down plan can change to augmentin rest continue current mgmt augmentin for 5 more days rest as per urology
[2018-07-18 17:00] VITALS: BP 129/59; PULSE 69; TEMP 98
== END 2018-07-18 17:59 | DRG 698 ==
LOC: JER 18:17 → JERBED 22:29 → J7W 07-07 01:53 → JICU 07-07 05:48 → J2W 07-07 20:48 → J5S 07-10 19:43
PROVIDERS: ADMIT Internal Medicine; ATTEND Internal Medicine
DX: T83.511A Infection and inflammatory reaction due to indwelling urethral catheter, initial encounter (principal); A41.52 Sepsis due to Pseudomonas; I50.33 Acute on chronic diastolic (congestive) heart failure; I24.8 Other forms of acute ischemic heart disease; N17.9 Acute kidney failure, unspecified; I13.0 Hypertensive heart and chronic kidney disease with heart failure and stage 1 through stage 4 chronic kidney disease, or unspecified chronic kidney disease; Y83.8 Other surgical procedures as the cause of abnormal reaction of the patient, or of later complication, without mention of misadventure at the time of the procedure; N39.0 Urinary tract infection, site not specified; E78.5 Hyperlipidemia, unspecified; R73.03 Prediabetes; N40.0 Benign prostatic hyperplasia without lower urinary tract symptoms; N47.1 Phimosis; R33.9 Retention of urine, unspecified; F41.9 Anxiety disorder, unspecified; R74.8 Abnormal levels of other serum enzymes; M10.9 Gout, unspecified; M71.522 Other bursitis, not elsewhere classified, left elbow; I25.10 Atherosclerotic heart disease of native coronary artery without angina pectoris; N18.9 Chronic kidney disease, unspecified; Z87.891 Personal history of nicotine dependence; Z86.73 Personal history of transient ischemic attack (TIA), and cerebral infarction without residual deficits
CPT/HCPCS: 36415; 70450-TC; 71045-TC-FY; 73070-TC-LT-FY; 73523-TC-FY; 73560-TC-LT-FY; 73560-TC-RT-FY; 76775-TC; 80053; 80061; 81003; 81015; 82436; 82550; 82553; 82803; 83036; 83605; 83721; 83735; 83880; 84100; 84133; 84134; 84300; 84484; 84550; 85025; 85610; 85730; 87040; 87086; 87186; 87324; 87449; 87804; 93005; 93010; 93306-TC; 97116-GP; 97162-GP; 99282-25; J1644; J7030

== ENCOUNTER 2018-08-21 12:51 | Inpatient (IN) | payer OTHER ==
--- NOTE | 2018-08-21 13:06 | PDOC ---
History of Present Illness - General Chief Complaint: Injury Stated Complaint: FALL History Source: Patient Exam Limitations: No Limitations - History of Present Illness Initial Comments: 08/21/18 13:06 The patient is a 88 year old male, with a significant PMH of stroke (L sided deficit), cholecystectomy, hypertension, hyperlipidemia, prediabetes, BPH w/ burt, phimosis s/p circumcision (05/2018), stage 3 inner buttocks and sacral ulcers, who presents to the emergency department from [facility] for hypotension and + urine culture or pseudomonoas and after sliding off his bed and landing on his buttocks. The patient denies any head trauma, neck pain, loss of consciousness, denies backpain, or injury to any extremitites. Patient was dosed miralax approx 1 week ago due to constipation but has recieved miralax everyday since then and has diarrhea for 1 week having upwards of 5-6 BMs a night. The miralax was stopped apprx 2 days ago. The patient was on ASA and heparin for pre-op for TURP, but both were stopped on 08/16/18. He received rocephin 1 day ago but did not recieve any abx today. At baseline patient walks with a walker. has a burt catheter PCP: deborah Past History - Past Medical History Allergies/Adverse Reactions: Allergies Allergy/AdvReac Type Severity Reaction Status Date / Time No Known Allergies Allergy Verified 08/21/18 13:01 Home Medications: Ambulatory Orders Acetaminophen 650 mg PO Q4H 08/21/18 Acetaminophen [Tylenol -] 500 mg PO DAILY 08/21/18 Ascorbic Acid [Vitamin C -] 500 mg PO DAILY 08/21/18 Aspirin [Aspirin EC] 81 mg PO DAILY 08/21/18 Enalapril Maleate 5 mg PO DAILY 08/21/18 Escitalopram Oxalate [Lexapro -] 10 mg PO DAILY 08/21/18 Furosemide 40 mg PO DAILY 08/21/18 Heparin - 5,000 unit SQ BID 08/21/18 Melatonin 3 mg PO HS 08/21/18 Multivitamins [Tab-A-Vit -] 1 tab PO DAILY 08/21/18 Polyethylene Glycol 3350 [Miralax (For Daily Use) -] 17 gm PO DAILY 08/21/18 Ranitidine [Zantac -] 150 mg PO HS 08/21/18 Silver Sulfadiazine 1% Top Cr [Silvadene -] 1 applic TP DAILY 08/21/18 Simvastatin 20 mg PO DAILY 08/21/18 Terazosin HCl 2 mg PO HS 08/21/18 Anemia: No Asthma: No Cancer: No Cardiac Disorders: Yes CVA: Yes COPD: No CHF: No Dementia: No Diabetes: Yes GI Disorders: No Disorders: No HTN: Yes Hypercholesterolemia: Yes Liver Disease: No Seizures: No Thyroid Disease: No - Surgical History Abdominal Surgery: Yes Appendectomy: No Cardiac Surgery: No Cholecystectomy: Yes Lung Surgery: No Neurologic Surgery: No Orthopedic Surgery: No - Suicide/Smoking/Psychosocial Hx Smoking History: Never smoked Have you smoked in the past 12 months: No Information on smoking cessation initiated: No Hx Alcohol Use: No Drug/Substance Use Hx: No Substance Use Type: None Hx Substance Use Treatment: No Review of Systems - Review of Systems Comments:: 08/21/18 15:52 GENERAL/CONSTITUTIONAL: No fever or chills. No weakness. HEAD, EYES, EARS, NOSE AND THROAT: No change in vision. No ear pain or discharge. No sore throat. CARDIOVASCULAR: No chest pain or shortness of breath RESPIRATORY: + nonproductive cough, wheezing, or hemoptysis. GASTROINTESTINAL: No nausea, vomiting, diarrhea or constipation. GENITOURINARY: No dysuria, frequency, or change in urination. MUSCULOSKELETAL: No joint or muscle swelling or pain. No neck or back pain. SKIN: No rash NEUROLOGIC: No headache, vertigo, loss of consciousness, or change in strength/ sensation. *Physical Exam - Vital Signs Last Vital Signs Temp Pulse Resp BP Pulse Ox 98.1 F 95 H 16 95/58 L 95 08/21/18 12:59 08/21/18 12:59 08/21/18 12:59 08/21/18 12:59 08/21/18 12:59 - Physical Exam Comments: 08/21/18 13:54 GENERAL: Awake, alert, and fully oriented, in no acute distress HEAD: No signs of trauma, normocephalic, atraumatic EYES: EOMI, sclera anicteric, conjunctiva clear ENT: oropharynx clear without exudates. Moist mucosa NECK: Normal ROM, supple LUNGS: No distress, speaks full sentences, rhonchi on Lmiddle lobe and base, coarse on R lung HEART: Regular rate and rhythm, normal S1 and S2, no murmurs, rubs or gallops, peripheral pulses normal and equal bilaterally. ABDOMEN: Soft, nontender, normoactive bowel sounds. No guarding, no rebound. No masses EXTREMITIES : Normal inspection, Normal range of motion, no edema. No clubbing or cyanosis. NEUROLOGICAL: Cranial nerves II through XII grossly intact. Normal speech, normal gait, no focal sensorimotor deficits SKIN: Warm, Dry, skin tenting, bruising along the abdomen ED Treatment Course - LABORATORY CBC & Chemistry Diagram: 08/24/18 07:05 08/24/18 07:05 Medical Decision Making - Medical Decision Making 08/21/18 13:18 The patient is a 88 year old male, with a significant PMH of stroke (L sided deficit), cholecystectomy, hypertension, hyperlipidemia, prediabetes, BPH w/ burt, phimosis s/p circumcision (05/2018), stage 3 inner buttocks and sacral ulcers, who presents to the emergency department from [facility] for hypotension and + urine culture or pseudomonoas and after sliding off his bed and landing on his buttocks. Patient was dosed miralax approx 1 week ago due to constipation but has recieved miralax everyday since then and has diarrhea for 1 week having upwards of 5-6 BMs a night. The miralax was stopped apprx 2 days ago. ED Course: consider ddx ibnlt: infectious vs electroylte derang r/o acs vs arrythmia cbc, cmp, coags, trop, ekg, cxr, blood cx, lactic zosyn, ivf 20cc/kg, tylenol 08/21/18 16:09 leukocytosis of 23.9 tropionemia of .16 howver always elevated, and improved from prior labs AURELIA present on lab, present previously but worse today 08/21/18 16:10 CXR: L lower atelectasis vs infiltrate, midline airway, appropriate vascular markings, no blunting of costophrenic angle, + cardiomegaly Improvement of infiltrates on R side from Jun 2018, unchanged on L lower infiltrates dose azithromycin and vancomycin for h pna coverage Admitted to medicine for further workup and management. *DC/Admit/Observation/Transfer Diagnosis at time of Disposition: UTI (urinary tract infection) due to urinary indwelling catheter, Sepsis - Discharge Dispostion Condition at time of disposition: Fair Decision to Admit order: Yes - Referrals - Patient Instructions - Post Discharge Activity
[2018-08-21] MEDS ORDERED: SODIUM CHLORIDE 1,000 ML IV SCH (13:15)
[2018-08-21] MEDS ORDERED: ACETAMINOPHEN 1000 MG/100 ML VIAL (NON FORMULARY) IVPB ONE (14:06)
[2018-08-21] MEDS ORDERED: ACETAMINOPHEN INJECTION 100 ML IVPB ONE (14:10)
[2018-08-21] MEDS ORDERED: SODIUM CHLORIDE 2,000 ML IV SCH (14:14)
[2018-08-21] MEDS ORDERED: PIPERACILLIN/TAZOB 3.375 GM 3.375 GM in DEXTROSE 5%-WATER - 50 ML IVPB ONE (14:14)
[2018-08-21 15:37] LABS: BASO % 0.3 % (0-2.0); EOS % 0.7 % (0-4.5); HEMATOCRIT 35.1 % (35.4-49); HEMOGLOBIN 11.3 GM/dL (11.7-16.9); LYMPH % 4.1 % (8-40); MCH 28.2 pg (25.7-33.7); MCHC 32.2 g/dl (32.0-35.9); MEAN CELL VOLUME 87.8 fl (80-96); MEAN PLT VOLUME 9.6 fl (7.5-11.1); NEUT % 88.9 % (42.8-82.8); PLATELET COUNT 234 K/MM3 (134-434); RDW 17.4 % (11.9-15.9); WHITE BLOOD COUNT 23.9 K/mm3 (4.0-10.0)
[2018-08-21 15:50] LABS: INR 1.13 (0.83-1.09); PROTHROMBIN TIME (PATIENT) 13.4 SEC (9.7-13.0)
[2018-08-21 15:53] LABS: ACTIVATED PTT 28.9 SECONDS (25.2-36.5)
[2018-08-21 16:05] LABS: ALBUMIN 2.4 g/dl (3.4-5.0); ALK PHOS 94 U/L (45-117); ANION GAP 10 MMOL/L (8-16); BILIRUBIN,TOTAL 0.4 mg/dL (0.2-1); BLOOD UREA NITROGEN 47 mg/dL (7-18); CALCIUM 8.2 mg/dL (8.5-10.1); CHLORIDE 106 mmol/L (98-107); CO2 21 mmol/L (21-32); GLUCOSE,RANDOM 97 mg/dL (74-106); POTASSIUM 4.3 mmol/L (3.5-5.1); SGOT/AST 10 U/L (15-37); SGPT/ALT 15 U/L (13-61); SODIUM 136 mmol/L (136-145)
[2018-08-21] MEDS ORDERED: AZITHROMYCIN IVPB 500 MG in DEXTROSE 5%-WATER - 250 ML IVPB ONE (16:14)
[2018-08-21] MEDS ORDERED: VANCOMYCIN HCL 1,500 MG in DEXTROSE 5%-WATER - 500 ML IVPB ONE (16:15)
[2018-08-21 16:27] LABS: URINE APPEARANCE TURBID; URINE BACTERIA 1.9 /hpf (NEGATIVE); URINE BILIRUBIN 1+ (NEGATIVE); URINE CASTS 46 /hpf (0-8); URINE COLOR ORANGE; URINE GLUCOSE (UA) NEGATIVE (NEGATIVE); URINE KETONE TRACE (NEGATIVE); URINE LEUK ESTERASE 3+ (NEGATIVE); URINE NITRITE NEGATIVE (NEGATIVE); URINE PROTEIN 1+ (NEGATIVE); URINE RBC 1938 /hpf (0-4); URINE WBC 101 /hpf (0-5)
[2018-08-21] MEDS ORDERED: AZITHROMYCIN IVPB 500 MG/250 ML BAG IVPB ONE (16:51)
[2018-08-21] MEDS ORDERED: PIPERACILLIN/TAZOB 3.375 GM 3.375 GM/50 ML BAG IVPB ONE (16:51)
[2018-08-21 17:42] LABS: PLATELET ESTIMATE ADEQUATE
[2018-08-21] MEDS ORDERED: ACETAMINOPHEN 325 MG TABLET (FP) PO PRN (18:36)
--- NOTE | 2018-08-21 19:03 | HP ---
Admitting History and Physical - Admission Chief Complaint: bladder pressure and low grade fever. History of Present Illness: 88 year old male with past medical history of CVA with mild left sided residual deficits, HTN, HLD, pre-DM, BPH with burt (May 2018) and phimosis s/p circumcision (2 weeks ago), who a recent two week hospital stay at [place] for Pseudomonas UTI treated with IVF and abx, representing today from [facility]. After his last hospitalization, pt was discharge to [facility] due to severe deconditioning and left sided weakness 2/2 recent CVA. While in rehab he experienced a fall in the bathroom, but did not sustain any acute injuries. He completed his course at [facility], but needed to be transferred to [facility] for management of chronic urinary retention due to BPH. Mr. Burch was evaluated by urology and had TURP vaporization (laser) scheduled for August 24. In anticipation of procedure ASA and SC heparin were on hold. However, pt notes that one week prior to presenting to [facility], he began to experience bladder pressure, malaise and low grade fever. Urine culture done at [facility] revealed UTI w/ multidru resistant Pseudomonas Aeruginosa > 100, 000 colonies. Pt was treated with ceftriaxone 1gm daily. Routine labs done on 08/14 at [facility]: WBC 10.0, H/H 11.2/34, neutr 77%, BUN/Cr 36/2.0. Simultaneously, pt also experienced severe constipation which was treated with miralax and colace which resulted in massive diarrhea over the course of the last 6days. Today, pt experienced severe dehydration as evidenced by lethargy and inability to weight bear resulting in him sliding down to floor on buttocks this morning. At baseline pt has a wheelchair but ambulates with a walker. In ED: Vitals were: T 98.1, HR 95, RR 16, BP 95/58, O2 sat 95%. burt cath changed and pt dosed vancomycin, azithromycin and Zosyn. labs significant for worsening renal function: BUN/Cr 47/3.0, WBC 23 Pt dosed IVF and IV tylenol for 1pm temp 100.0. CXR with evidence of left base infiltrate or atelectasis. Pt admitted for further management of urosepsis and dehydration. 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 Cardiovascular: Yes: HTN, Hyperlipdemia Gastrointestinal: Yes: Constipation, GERD Renal/: Yes: Renal Inusuff, BPH, Hematuria, UTI, Other (urinary retention) Heme/Onc: Yes: Other (vitamin c def) Psych: Yes: Anxiety, Bipolar Dermatology: Yes: Other (sacral pressure ulcer stage 3) - Past Surgical History Additional Past Surgical History: carotid endarterectomy (2005) cholecystectomy circumcision (2018) - Advance Directives Advance Directives: Yes: Health Care Proxy (Daughter: Carolyn) - Smoking History Smoking history: Former smoker Have you smoked in the past 12 months: No Aproximately how many cigarettes per day: 20 (smoked for more than 40yrs, ) If you are a former smoker, when did you quit?: 1988 - Alcohol/Substance Use Hx Alcohol Use: No History of Substance Use: reports: None - Social History Usual Living Arrangement: Yes: Assisted ADL: Support Services Occupation: retired History of Recent Travel: No Home Medications - Allergies Allergies/Adverse Reactions: Allergies Allergy/AdvReac Type Severity Reaction Status Date / Time No Known Allergies Allergy Verified 08/21/18 13:01 - Home Medications Home Medications: Ambulatory Orders Acetaminophen 650 mg PO Q4H 08/21/18 Acetaminophen [Tylenol -] 500 mg PO DAILY 08/21/18 Ascorbic Acid [Vitamin C -] 500 mg PO DAILY 08/21/18 Aspirin [Aspirin EC] 81 mg PO DAILY 08/21/18 Enalapril Maleate 5 mg PO DAILY 08/21/18 Escitalopram Oxalate [Lexapro -] 10 mg PO DAILY 08/21/18 Furosemide 40 mg PO DAILY 08/21/18 Heparin - 5,000 unit SQ BID 08/21/18 Melatonin 3 mg PO HS 08/21/18 Multivitamins [Tab-A-Vit -] 1 tab PO DAILY 08/21/18 Polyethylene Glycol 3350 [Miralax (For Daily Use) -] 17 gm PO DAILY 08/21/18 Ranitidine [Zantac -] 150 mg PO HS 08/21/18 Silver Sulfadiazine 1% Top Cr [Silvadene -] 1 applic TP DAILY 08/21/18 Simvastatin 20 mg PO DAILY 08/21/18 Terazosin HCl 2 mg PO HS 08/21/18 Family Disease History - Family Disease History Family Disease History: Other: Father ( (94) stomach cancer), Mother ( (80) h/o breast and colon cancer) Review of Systems - Review of Systems Constitutional: reports: Lethargy, Weakness Eyes: reports: No Symptoms HENT: reports: No Symptoms Neck: reports: No Symptoms Cardiovascular: reports: No Symptoms Respiratory: reports: No Symptoms Gastrointestinal: reports: Diarrhea Genitourinary: reports: Pain Breasts: reports: No Symptoms Reported Musculoskeletal: reports: No Symptoms, Muscle Weakness Integumentary: reports: No Symptoms Neurological: reports: No Symptoms Endocrine: reports: No Symptoms Hematology/Lymphatic: reports: Easily Bruised Psychiatric: reports: No Symptoms Physical Examination Vital Signs: Vital Signs Temperature 100.0 F H 08/21/18 13:19 Pulse Rate 95 H 08/21/18 12:59 Respiratory Rate 16 08/21/18 12:59 Blood Pressure 95/58 L 08/21/18 12:59 O2 Sat by Pulse Oximetry (%) 95 08/21/18 12:59 Constitutional: Yes: Well Nourished, No Distress, Calm Eyes: Yes: Conjunctiva Clear, PERRL HENT: Yes: Atraumatic, Normocephalic Neck: Yes: Supple Cardiovascular: Yes: Regular Rate and Rhythm Respiratory: Yes: Regular, Other (coarse breath sounds right upper and middle) Gastrointestinal: Yes: Soft, Abdomen, Obese, Hyperactive Bowel Sounds, Other ( Left sided ecchymosis r/t fall in bathroom at [facility]) ...Rectal Exam: Yes: Deferred Renal/: Yes: Burt Present Musculoskeletal: Yes: WNL Edema: Yes (+1 ankle/pedal edema bl) Peripheral Pulses WNL: Yes Peripheral Pulses: Left Radial: 2+, Right Radial: 2+, Left Doralis Pedis: 1+, Right Dorsalis Pedis: 1+ Integumentary: Yes: Pressure Ulcer (stage 1 sacral), Other (RLE excoriation scatttered areas of ecchymosis below umbilicus) Neurological: Yes: Alert, Oriented ...Motor Strength: WNL Psychiatric: Yes: Alert, Oriented Labs: CBC, BMP 08/21/18 13:41 08/21/18 13:41 Imaging - Results Chest X-ray: Report Reviewed (CXr 08/21/2018 Impression: A single AP view of the chest is submitted. Since the prior study of 07/11/2018, the bilateral infiltrates have diminished. There is still large heart, infiltrate or evidence of atelectasis at the left base. Correlation recommended. Reported by Dr Umer Gregory) Problem List - Problems (1) Atelectasis, left Assessment/Plan: OOB to chair Incentive spirometry chest PT Code(s): J98.11 - ATELECTASIS (2) UTI (urinary tract infection) due to urinary indwelling catheter Assessment/Plan: Zosyn 3.375mg Q12hrs vanco 1250mg q24 by level due to AURELIA trend fever curve and WBC follow up urine culture Code(s): T83.511A - I/I REACT D/T INDWELLING URETHRAL CATHETER, INIT; N39.0 - URINARY TRACT INFECTION, SITE NOT SPECIFIED (3) Hyperlipidemia Assessment/Plan: switch simvastatin to hospital formulary statin cardiac diet Code(s): E78.5 - HYPERLIPIDEMIA, UNSPECIFIED (4) Urinary retention due to benign prostatic hyperplasia Assessment/Plan: urology consulted maintain burt strict intake and output hytrin 5mg qhs TURP which was scheduled for 08/24, on hold Code(s): N40.1 - BENIGN PROSTATIC HYPERPLASIA WITH LOWER URINARY TRACT SYMP; R33.8 - OTHER RETENTION OF URINE (5) HTN (hypertension) Assessment/Plan: enalapril 5mg daily Code(s): I10 - ESSENTIAL (PRIMARY) HYPERTENSION (6) Prophylactic measure Assessment/Plan: ASA 81mg daily SC heparin BID SCDs ambulate as tolerated hold off on bowel regimen due to perfuse diarrhea over the last week with miralax administration Melatonin PRN insomnia tylenol PRN pain or fever Silvadence for stage 1 sacral decubiti Code(s): Z29.9 - ENCOUNTER FOR PROPHYLACTIC MEASURES, UNSPECIFIED (7) Depression Assessment/Plan: lexapro 10mg daily Code(s): F32.9 - MAJOR DEPRESSIVE DISORDER, SINGLE EPISODE, UNSPECIFIED (8) AURELIA (acute kidney injury) Assessment/Plan: gentle hydration trend creatinine and electrolytes hold home dose of lasix Code(s): N17.9 - ACUTE KIDNEY FAILURE, UNSPECIFIED Assessment/Plan DISPO: full code Visit type - Emergency Visit Emergency Visit: Yes ED Registration Date: 08/21/18 Care time: The patient presented to the Emergency Department on the above date and was hospitalized for further evaluation of their emergent condition. - New Patient This patient is new to me today: Yes Date on this admission: 08/21/18 - Critical Care Critical Care patient: No
--- NOTE | 2018-08-21 19:10 | PDOC ---
Attending Attestation - Resident Resident Name: ConstantineBrigid - ED Attending Attestation I have performed the following: I have examined & evaluated the patient, The case was reviewed & discussed with the resident, I agree w/resident's findings & plan, Exceptions are as noted - HPI HPI: 08/21/18 15:12 The patient is an 88 year old male, with a significant PMH of stroke(left sided deficit), HTN, HLD, pre-DM, BPH, phimosis s/p circumcision in May, who presents to the emergency department from [facility] for evaluation of low blood pressure and urine culture for pseudomonis, and a fall. The patient states he was putting a phone back when he slipped off his bed landing on his behind. No LOC or head trauma. Denies any pain from the fall, states it was well controlled down the bed. Denies other recent falls or head strike. Patient was prescribed miralax about a week ago for constipation and has taken it every day until two days ago since he began to have diarrhea. Patient was also taking Aspirin and Heparin until 08/16 for pre-op for TURP. The patient denies chest pain, shortness of breath, headache and dizziness. Denies fever, chills, nausea, vomit, diarrhea. Denies dysuria, frequency, urgency and hematuria. Allergies: NKA Social history: None reported PCP: Dr. Macdonald - Physicial Exam PE: 08/21/18 15:14 agree with resident exam - Medical Decision Making 08/21/18 16:[address] Macdonald for psudomonas UTI, hypotension, and HCAP. Covered with shweta rosas azithro 08/21/18 18:[address] Jocelyne Shine, asks if admission can be switched to her as she is the patient's primary. Informed her that pt was admitted to Dr. Macdonald but that I would try to call and discuss. Called Dr. Macdonald's office but answering service defers to hospitalist. Called his cell, left a VM. Spoke with Dr. Valdez and informed her I was unable to get in touch with him. States she will discuss with him in the AM and to keep admission under Dr. Macdonald.
[2018-08-21] MEDS: SILVER SULFADIAZINE 1% TOP CREAM 400 GM JAR TP SCH (19:30)
[2018-08-21] MEDS ORDERED: LACTATED RINGERS SOLUTION 1,000 ML/1,000 ML INFUS.BAG IV SCH (20:15)
[2018-08-21] MEDS ORDERED: HEPARIN NA (PORCINE) 5,000 UNITS/ML 1ML VIAL SQ SCH (22:00)
[2018-08-21] MEDS ORDERED: TERAZOSIN HCL 2 MG CAPSULE PO SCH (22:00)
[2018-08-21] MEDS ORDERED: MELATONIN 1 MG TABLET PO SCH (22:00)
[2018-08-21] MEDS ORDERED: ATORVASTATIN CA 10 MG TABLET (FP) ONE (22:07)
[2018-08-21] MEDS ORDERED: RANITIDINE HCL 150 MG TABLET (FP) ONE (22:07)
[2018-08-21] MEDS ORDERED: HEPARIN NA (PORCINE) 5,000 UNITS/ML 1ML VIAL ONE (22:08)
[2018-08-21] MEDS: RANITIDINE HCL 150 MG TABLET (FP) PO SCH (22:16)
[2018-08-21] MEDS: ATORVASTATIN CA 10 MG TABLET (FP) PO SCH (22:16)
[2018-08-22 04:59] LABS: ARTERIAL BLOOD GAS BASE EXCESS -5.5 meq/l (-2-2); ARTERIAL BLOOD GAS PCO2 31.2 mmHg (35-45); ARTERIAL BLOOD GAS PO2 63.8 mmHg (80-105); ARTERIAL BLOOD GAS pH 7.38 (7.35-7.45)
[2018-08-22 05:00] LABS: ALLENS TEST POSITIVE
[2018-08-22 06:37] LABS: BASO % 0.3 % (0-2.0); EOS % 2.3 % (0-4.5); HEMATOCRIT 31.4 % (35.4-49); HEMOGLOBIN 10.6 GM/dL (11.7-16.9); LYMPH % 6.1 % (8-40); MCH 29.5 pg (25.7-33.7); MCHC 33.9 g/dl (32.0-35.9); MEAN CELL VOLUME 87.1 fl (80-96); MEAN PLT VOLUME 9.5 fl (7.5-11.1); MONO % 6.1 % (3.8-10.2); NEUT % 85.2 % (42.8-82.8); PLATELET COUNT 209 K/MM3 (134-434); RBC 3.61 M/mm3 (4.00-5.60); RDW 17.1 % (11.9-15.9); WHITE BLOOD COUNT 18.9 K/mm3 (4.0-10.0)
[2018-08-22 06:50] LABS: INR 1.14 (0.83-1.09); PROTHROMBIN TIME (PATIENT) 13.5 SEC (9.7-13.0)
[2018-08-22 06:52] LABS: ACTIVATED PTT 29.2 SECONDS (25.2-36.5)
[2018-08-22 07:06] LABS: ALBUMIN 2.2 g/dl (3.4-5.0); ALK PHOS 92 U/L (45-117); ANION GAP 8 MMOL/L (8-16); BILIRUBIN,TOTAL 0.4 mg/dL (0.2-1); BLOOD UREA NITROGEN 51 mg/dL (7-18); CALCIUM 7.7 mg/dL (8.5-10.1); CHLORIDE 107 mmol/L (98-107); CO2 22 mmol/L (21-32); CREATININE 3.3 mg/dL (0.55-1.3); GLUCOSE,RANDOM 98 mg/dL (74-106); MAGNESIUM 1.7 mg/dL (1.8-2.4); N-TERMINAL BNP 4469.6 pg/ml (5-450); PHOSPHOROUS 3.4 mg/dL (2.5-4.9); POTASSIUM 4.2 mmol/L (3.5-5.1); SGOT/AST 10 U/L (15-37); SGPT/ALT 13 U/L (13-61); SODIUM 136 mmol/L (136-145)
--- NOTE | 2018-08-22 08:37 | CON.GU ---
Consult - History of Present Illness History of Present Illness: 88 yo male with urinary retention, transferred from [facility] with fever, weakness. Noted to have elevated WBC and infiltrate on CXR. Was scheduled for TURP this week - Past Medical History PLASTIC INSTALLER: Yes: CVA Cardio/Vascular: Yes: HTN, Hyperlipdemia Gastrointestinal: Yes: Constipation, GERD Renal/: Yes: Renal Inusuff, BPH, Hematuria, UTI, Other (urinary retention) Psych: Yes: Anxiety, Bipolar Dermatology: Yes: Other (sacral pressure ulcer stage 3) - Alcohol/Substance Use Hx Alcohol Use: No History of Substance Use: reports: None - Smoking History Smoking history: Former smoker Have you smoked in the past 12 months: No Aproximately how many cigarettes per day: 20 (smoked for more than 40yrs, ) If you are a former smoker, when did you quit?: 1988 - Social History ADL: Support Services Occupation: retired History of Recent Travel: No Home Medications - Allergies Allergies/Adverse Reactions: Allergies Allergy/AdvReac Type Severity Reaction Status Date / Time No Known Allergies Allergy Verified 08/21/18 13:01 - Home Medications Home Medications: Ambulatory Orders Acetaminophen 650 mg PO Q4H 08/21/18 Acetaminophen [Tylenol -] 500 mg PO DAILY 08/21/18 Ascorbic Acid [Vitamin C -] 500 mg PO DAILY 08/21/18 Aspirin [Aspirin EC] 81 mg PO DAILY 08/21/18 Enalapril Maleate 5 mg PO DAILY 08/21/18 Escitalopram Oxalate [Lexapro -] 10 mg PO DAILY 08/21/18 Furosemide 40 mg PO DAILY 08/21/18 Heparin - 5,000 unit SQ BID 08/21/18 Melatonin 3 mg PO HS 08/21/18 Multivitamins [Tab-A-Vit -] 1 tab PO DAILY 08/21/18 Polyethylene Glycol 3350 [Miralax (For Daily Use) -] 17 gm PO DAILY 08/21/18 Ranitidine [Zantac -] 150 mg PO HS 08/21/18 Silver Sulfadiazine 1% Top Cr [Silvadene -] 1 applic TP DAILY 08/21/18 Simvastatin 20 mg PO DAILY 08/21/18 Terazosin HCl 2 mg PO HS 08/21/18 Family Disease History - Family Disease History Family Disease History: Other: Father ( (94) stomach cancer), Mother ( (80) h/o breast and colon cancer) Review of Systems - Review of Systems Genitourinary: reports: Other (retention) Physical Exam- Vital Signs: Vital Signs Temperature 98.1 F 08/22/18 06:41 Pulse Rate 84 08/22/18 06:41 Respiratory Rate 16 08/21/18 18:36 Blood Pressure 92/45 L 08/22/18 06:41 O2 Sat by Pulse Oximetry (%) 94 L 08/22/18 06:41 Renal/: Yes: Starr Present Labs: CBC, BMP 08/22/18 05:30 08/22/18 05:30 Problem List - Problems (1) Urinary retention due to benign prostatic hyperplasia Assessment/Plan: braod spectrum abx until source of infection is found, will postpone TURP until early next week when able to be medically cleared. Please keep off ASA Code(s): N40.1 - BENIGN PROSTATIC HYPERPLASIA WITH LOWER URINARY TRACT SYMP; R33.8 - OTHER RETENTION OF URINE
[2018-08-22 09:27] LABS: ERYTHROCYTE SEDIMENTATION RATE 48 mm/hr (0-20)
[2018-08-22] MEDS ORDERED: ASPIRIN COATED 81 MG TABLET.EC PO SCH (10:00)
[2018-08-22] MEDS ORDERED: ENALAPRIL MALEATE 5 MG TABLET (FP) PO SCH (10:00)
[2018-08-22] MEDS ORDERED: RANITIDINE HCL 150 MG TABLET (FP) PO SCH (10:00)
[2018-08-22] MEDS: ESCITALOPRAM OXALATE 10 MG TABLET (FP) PO SCH (10:17)
[2018-08-22] MEDS: MULTIVITAMINS (DAILY MVI) TABLET (FP) PO SCH (10:18)
[2018-08-22] MEDS: ASCORBIC ACID 500 MG TABLET (FP) PO SCH (10:18)
--- NOTE | 2018-08-22 10:59 | PN ---
Progress Note (short form) - Note Progress Note: admitted from [facility] with diarrhea and weakness. feeling little better today CBC, BMP 08/22/18 05:30 08/22/18 05:30 Vital Signs Period Temp Pulse Resp BP Sys/Leon Pulse Ox Last 24 Hr 98.1 F-100.0 F 83-95 16-18 92-120/43-62 94-100 S1S2 RRR Lungs cta ant,basal rales present abd distended, +BS burt drainig cloudy dark urine no edema awake, alert, oriented to place, person and year imp 88 yo m with pmh of cva with mild left arm weakness, HTN, high cholesterol BPH with indwelling burt since this May 2018 was admitted in June for Pseudomonas UTI, went initially to [facility] for rehab now returning for severe dehydration prerenal azotemia UTI with indwelling Burt +- pneumonia, comparison to June chest xray actually shows improvement iv antibiotic iv hydration if clinically better tentative TURP early next week will get caridology clearance prior
[2018-08-22] MEDS ORDERED: D5-1/2NS+10 MEQ KCL - 10 MEQ/1,000 ML INFUS.BAG IV SCH (11:15)
--- NOTE | 2018-08-22 12:37 | PN ---
Progress Note (short form) - Note Progress Note: ID CONSULT DICTATED UTI R/O SEPSIS SECONDARY TO UTI URINARY RETENTION RENAL FAILURE AWAIT C/S EMPIRIC ZOSYN
--- NOTE | 2018-08-22 13:53 | CONS ---
INFECTIOUS DISEASE CONSULTATION DATE OF CONSULTATION: 08/22/2018 The patient is an 88-year-old male who is evaluated for urinary tract infection. He has a history of urinary retention with a chronic indwelling Starr catheter. He is at a local senior care for rehabilitation. At the senior care, he was reported to be hypotensive. He had also developed diarrhea after receiving laxatives and Colace. He complained of pressure of the urinary bladder, malaise, and subjective fever. He was evaluated in the emergency room where white blood cell count was 23,000. Urinalysis showed many white and red cells. His course was complicated by low-grade fever. Patient was recently hospitalized at [facility] for urinary tract infection. He recently underwent a circumcision for phimosis. He was seen in followup by Urology and is scheduled to have a TURP. At the present time, he is awake and alert. He denies any pain. No complaints of suprapubic or flank pain. PAST MEDICAL HISTORY: Positive for stroke with left hemiparesis, BPH, hypertension, hyperlipidemia, history of sacral decubitus ulcer. PAST SURGICAL HISTORY: Status post cholecystectomy, carotid endarterectomy. ALLERGIES: No known allergies. MEDICATIONS: Tylenol, vitamin C, aspirin, enalapril, Lexapro, Lasix, melatonin, Zantac, simvastatin, terazosin. SOCIAL HISTORY: Presently in a nursing facility for rehabilitation. No active tobacco or alcohol use. SYSTEMS REVIEW: Neurologic: No loss of consciousness, seizure activity, and positive history of stroke with left hemiparesis. Cardiac: Negative chest pain or palpitations. Respiratory: Negative cough or sputum production. Gastrointestinal: Positive recent diarrhea attributed to laxative and Colace. Genitourinary: As per HPI. LABORATORY DATA: White count 18.9; neutrophils 85, lymphocytes 6; hematocrit 31.4; platelet count 209. BUN 51, creatinine 3.3. Liver enzymes normal. PHYSICAL EXAMINATION: General: He is awake, supine in bed. Vital Signs: Temperature 98.1, T-max 100.0; blood pressure 102/43; pulse 83, regular; respirations 16 per minute. HEENT: Sclerae anicteric. Heart: Sounds S1, S2. Lungs: Rhonchi, left base. Abdomen: Obese, soft. No suprapubic or flank tenderness. Ecchymotic area is present in the lower abdomen. Extremities: Positive for edema. IMPRESSION: 1. Hypotension, rule out sepsis. 2. Urinary tract infection, rule out sepsis secondary to urinary tract infection. 3. Urinary retention with indwelling Starr catheter. 4. Azotemia. 5. Left lower lobe effusion versus infiltrate. Await cultures. Would empirically cover urinary tract infections including previous pseudomonas isolated in the urine with Zosyn adjusted for renal insufficiency. Will give Zosyn 2.25 g IV piggyback every 8 hours. Urology followup. Further recommendations pending cultures. Will follow. Thank you for the kind referral. JEANNIE TOM M.D. [id number]
--- NOTE | 2018-08-22 14:24 | EKG ---
Test Reason : Blood Pressure : / mmHG Vent. Rate : 093 BPM Atrial Rate : 093 BPM P-R Int : 154 ms QRS Dur : 112 ms QT Int : 372 ms P-R-T Axes : 030 -82 044 degrees QTc Int : 462 ms SINUS RHYTHM WITH PREMATURE ATRIAL COMPLEXES LEFT AXIS DEVIATION LOW VOLTAGE QRS RIGHT BUNDLE BRANCH BLOCK INFERIOR INFARCT (CITED ON OR BEFORE 07-JUL-2018) CANNOT RULE OUT ANTERIOR INFARCT , AGE UNDETERMINED ABNORMAL ECG WHEN COMPARED WITH ECG OF 12-JUL-2018 09:21, NO SIGNIFICANT CHANGE WAS FOUND Confirmed by MD Leatha, Azar ([id number]) on 08/22/2018 2:24:24 PM Referred By: Confirmed By:Azar Zhang MD
[2018-08-22] MEDS: SILVER SULFADIAZINE 1% TOP CREAM 400 GM JAR TP SCH (17:15)
[2018-08-22] MEDS ORDERED: SILVER SULFADIAZINE 1% TOP CREAM 50 GM JAR TP ONE (19:40)
[2018-08-22] MEDS ORDERED: RANITIDINE HCL 150 MG TABLET (FP) ONE (20:01)
[2018-08-22] MEDS ORDERED: ATORVASTATIN CA 10 MG TABLET (FP) ONE (20:01)
[2018-08-22] MEDS ORDERED: PIPERACILLIN/TAZOB 2.25 GM 2.25 GM/50 ML BAG IVPB ONE (20:01)
[2018-08-22] MEDS: PIPERACILLIN/TAZOB 2.25 GM 2.25 GM in DEXTROSE 5%-WATER - 50 ML IVPB SCH (20:36)
[2018-08-22] MEDS: RANITIDINE HCL 150 MG TABLET (FP) PO SCH (21:08)
[2018-08-22] MEDS: ATORVASTATIN CA 10 MG TABLET (FP) PO SCH (21:08)
[2018-08-22] MEDS: TERAZOSIN HCL 1 MG CAPSULE PO SCH (21:16)
[2018-08-23] MEDS ORDERED: DEXTROSE 5%-WATER - 50 ML IVPB ONE ×3 (02:10→18:02)
[2018-08-23] MEDS ORDERED: PIPERACILLIN/TAZOBACTAM 2.25 GM VIAL IVPB ONE ×3 (02:10→18:01)
[2018-08-23] MEDS: PIPERACILLIN/TAZOB 2.25 GM 2.25 GM in DEXTROSE 5%-WATER - 50 ML IVPB SCH ×3 (02:25→18:14)
[2018-08-23 06:30] LABS: BASO % 0.4 % (0-2.0); EOS % 3.9 % (0-4.5); HEMATOCRIT 31.9 % (35.4-49); HEMOGLOBIN 10.6 GM/dL (11.7-16.9); LYMPH % 7.4 % (8-40); MCH 28.9 pg (25.7-33.7); MCHC 33.2 g/dl (32.0-35.9); MEAN CELL VOLUME 87.1 fl (80-96); MEAN PLT VOLUME 9.7 fl (7.5-11.1); MONO % 7.1 % (3.8-10.2); NEUT % 81.2 % (42.8-82.8); PLATELET COUNT 229 K/MM3 (134-434); RBC 3.66 M/mm3 (4.00-5.60); RDW 17.1 % (11.9-15.9); WHITE BLOOD COUNT 15.2 K/mm3 (4.0-10.0)
[2018-08-23 07:01] LABS: ALK PHOS 92 U/L (45-117); ANION GAP 9 MMOL/L (8-16); BILIRUBIN,TOTAL 0.4 mg/dL (0.2-1); BLOOD UREA NITROGEN 54 mg/dL (7-18); CALCIUM 7.4 mg/dL (8.5-10.1); CHLORIDE 109 mmol/L (98-107); CO2 22 mmol/L (21-32); CREATININE 3.1 mg/dL (0.55-1.3); GLUCOSE,RANDOM 106 mg/dL (74-106); POTASSIUM 4.2 mmol/L (3.5-5.1); SGOT/AST 12 U/L (15-37); SGPT/ALT 14 U/L (13-61); SODIUM 139 mmol/L (136-145); TOT PROT 4.6 g/dl (6.4-8.2)
[2018-08-23] MEDS: MULTIVITAMINS (DAILY MVI) TABLET (FP) PO SCH (09:36)
[2018-08-23] MEDS: ASCORBIC ACID 500 MG TABLET (FP) PO SCH (09:36)
[2018-08-23] MEDS: SILVER SULFADIAZINE 1% TOP CREAM 400 GM JAR TP SCH (09:40)
[2018-08-23] MEDS: ESCITALOPRAM OXALATE 10 MG TABLET (FP) PO SCH (09:50)
[2018-08-23] MEDS: D5-1/2NS+10 MEQ KCL - 10 MEQ/1,000 ML INFUS.BAG IV SCH (13:00)
--- NOTE | 2018-08-23 13:18 | PN ---
Progress Note (short form) - Note Progress Note: better CBC, BMP 08/23/18 05:30 08/23/18 05:30 Vital Signs Period Temp Pulse Resp BP Sys/Leon Pulse Ox Last 24 Hr 98 F-98.7 F 75-89 18-20 100-114/45-56 94-97 S1S2 RRR Lungs cta ant,scattered rhonchi abd distended, +BS burt drainig yellow urine no edema awake, alert, oriented to place, person and year stage 2 sacral ulcer imp 88 yo m with pmh of cva with mild left arm weakness, HTN, high cholesterol BPH with indwelling burt since this May 2018 was admitted in June for Pseudomonas UTI, went initially to [facility] now returning for severe dehydration prerenal azotemia UTI with indwelling Burt +- pneumonia, comparison to June chest xray actually shows improvement iv antibiotic iv hydration-reduce rate if clinically better tentative TURP early next week will get cardiology clearance prior
--- NOTE | 2018-08-23 15:49 | CON.CARD ---
Consult Consult Specialty:: Cardiology Reason for Consultation:: clearance before TURP - History of Present Illness History of Present Illness: The patient is a 88 year old male, with a significant PMH of stroke (L sided deficit), cholecystectomy, hypertension, hyperlipidemia, prediabetes, BPH w/ burt, phimosis s/p circumcision (05/2018), stage 3 inner buttocks and sacral ulcers, who presents to the emergency department from [facility] for hypotension and + urine culture or pseudomonoas and after sliding off his bed and landing on his buttocks. The patient denies any head trauma, neck pain, loss of consciousness, denies backpain, or injury to any extremitites. Patient was dosed miralax approx 1 week ago due to constipation but has recieved miralax everyday since then and has diarrhea for 1 week having upwards of 5-6 BMs a night. The miralax was stopped apprx 2 days ago. The patient was on ASA and heparin for pre-op for TURP, but both were stopped on 08/16/18. He received rocephin 1 day ago but did not recieve any abx today. At baseline patient walks with a walker. 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 Cardio/Vascular: Yes: HTN, Hyperlipdemia Gastrointestinal: Yes: Constipation, GERD Renal/: Yes: Renal Inusuff, BPH, Hematuria, UTI, Other (urinary retention) Psych: Yes: Anxiety, Bipolar Dermatology: Yes: Other (sacral pressure ulcer stage 3) - Alcohol/Substance Use Hx Alcohol Use: No History of Substance Use: reports: None - Smoking History Smoking history: Former smoker Have you smoked in the past 12 months: No Aproximately how many cigarettes per day: 20 If you are a former smoker, when did you quit?: 1988 - Social History ADL: Support Services Occupation: retired History of Recent Travel: No Home Medications - Allergies Allergies/Adverse Reactions: Allergies Allergy/AdvReac Type Severity Reaction Status Date / Time No Known Allergies Allergy Verified 08/21/18 13:01 - Home Medications Home Medications: Ambulatory Orders Acetaminophen 650 mg PO Q4H 08/21/18 Acetaminophen [Tylenol -] 500 mg PO DAILY 08/21/18 Ascorbic Acid [Vitamin C -] 500 mg PO DAILY 08/21/18 Aspirin [Aspirin EC] 81 mg PO DAILY 08/21/18 Enalapril Maleate 5 mg PO DAILY 08/21/18 Escitalopram Oxalate [Lexapro -] 10 mg PO DAILY 08/21/18 Furosemide 40 mg PO DAILY 08/21/18 Heparin - 5,000 unit SQ BID 08/21/18 Melatonin 3 mg PO HS 08/21/18 Multivitamins [Tab-A-Vit -] 1 tab PO DAILY 08/21/18 Polyethylene Glycol 3350 [Miralax (For Daily Use) -] 17 gm PO DAILY 08/21/18 Ranitidine [Zantac -] 150 mg PO HS 08/21/18 Silver Sulfadiazine 1% Top Cr [Silvadene -] 1 applic TP DAILY 08/21/18 Simvastatin 20 mg PO DAILY 08/21/18 Terazosin HCl 2 mg PO HS 08/21/18 Family Disease History - Family Disease History Family Disease History: Other: Father ( (94) stomach cancer), Mother ( (80) h/o breast and colon cancer) Review of Systems - Review of Systems Constitutional: reports: No Symptoms Eyes: reports: No Symptoms HENT: reports: No Symptoms Neck: reports: No Symptoms Cardiovascular: reports: No Symptoms Gastrointestinal: reports: No Symptoms Genitourinary: reports: No Symptoms Breasts: reports: No Symptoms Reported Musculoskeletal: reports: No Symptoms Integumentary: reports: No Symptoms Neurological: reports: No Symptoms Endocrine: reports: No Symptoms Hematology/Lymphatic: reports: No Symptoms Psychiatric: reports: No Symptoms Vital Signs: Vital Signs Temperature 98.4 F 08/23/18 14:15 Pulse Rate 71 08/23/18 14:15 Respiratory Rate 16 08/23/18 14:15 Blood Pressure 114/52 L 08/23/18 14:15 O2 Sat by Pulse Oximetry (%) 97 08/23/18 09:00 Constitutional: Yes: Well Nourished, No Distress, Calm Eyes: Yes: WNL, Conjunctiva Clear, EOM Intact HENT: Yes: WNL, Atraumatic, Normocephalic Neck: Yes: WNL, Supple, Trachea Midline Respiratory: Yes: WNL, Regular, CTA Bilaterally Gastrointestinal: Yes: WNL, Normal Bowel Sounds Renal/: Yes: WNL Cardiovascular: Yes: WNL, Regular Rate and Rhythm Musculoskeletal: Yes: WNL Extremities: Yes: WNL Integumentary: Yes: WNL ...Motor Strength: WNL Psychiatric: Yes: WNL, Alert, Oriented - Other Data Labs, Other Data: CBC, BMP 08/23/18 05:30 08/23/18 05:30 INR, PTT INR 1.14 (0.83-1.09) H 08/22/18 05:30 Imaging - Results Chest X-ray: Image Reviewed (cm , left base infiltrate /atelectasis) EKG: Image Reviewed (sr apcs old iw wall mi RBBB) Problem List - Problems (1) AURELIA (acute kidney injury) Code(s): N17.9 - ACUTE KIDNEY FAILURE, UNSPECIFIED (2) Atelectasis, left Code(s): J98.11 - ATELECTASIS (3) Depression Code(s): F32.9 - MAJOR DEPRESSIVE DISORDER, SINGLE EPISODE, UNSPECIFIED (4) HTN (hypertension) Code(s): I10 - ESSENTIAL (PRIMARY) HYPERTENSION (5) Prophylactic measure Code(s): Z29.9 - ENCOUNTER FOR PROPHYLACTIC MEASURES, UNSPECIFIED (6) Sepsis Code(s): A41.9 - SEPSIS, UNSPECIFIED ORGANISM (7) UTI (urinary tract infection) due to urinary indwelling catheter Code(s): T83.511A - I/I REACT D/T INDWELLING URETHRAL CATHETER, INIT; N39.0 - URINARY TRACT INFECTION, SITE NOT SPECIFIED (8) Acute on chronic diastolic CHF (congestive heart failure), NYHA class 1 Code(s): I50.33 - ACUTE ON CHRONIC DIASTOLIC (CONGESTIVE) HEART FAILURE (9) Elevated troponin I level Code(s): R74.8 - ABNORMAL LEVELS OF OTHER SERUM ENZYMES (10) Gout Code(s): M10.9 - GOUT, UNSPECIFIED (11) Hyperlipidemia Code(s): E78.5 - HYPERLIPIDEMIA, UNSPECIFIED (12) Urinary retention due to benign prostatic hyperplasia Code(s): N40.1 - BENIGN PROSTATIC HYPERPLASIA WITH LOWER URINARY TRACT SYMP; R33.8 - OTHER RETENTION OF URINE Assessment/Plan 88 yo m with pmh of cva with mild left arm weakness, HTN, high cholesterol BPH with indwelling burt since this May 2018 evaluated for clearence for TURP ECHO - hyperdynamic LV no valvular abnormalities, EKG SR RBBB elevated BNP - Problems (1) Depression Code(s): F32.9 - MAJOR DEPRESSIVE DISORDER, SINGLE EPISODE, UNSPECIFIED (2) HTN (hypertension) Code(s): I10 - ESSENTIAL (PRIMARY) HYPERTENSION (3) Sepsis Code(s): A41.9 - SEPSIS, UNSPECIFIED ORGANISM (4) Hyperlipidemia Assessment/Plan: On atorvastatin, with very well-contolled cholesterol. Code(s): E78.5 - HYPERLIPIDEMIA, UNSPECIFIED (5) UTI (urinary tract infection) due to urinary indwelling catheter Assessment/Plan: From a cardiac standpoint, there are no absolute contraindications for Mr. Burch to undergo TURP, once sepsis is resolved. Code(s): T83.511A - I/I REACT D/T INDWELLING URETHRAL CATHETER, INIT; N39.0 - URINARY TRACT INFECTION, SITE NOT SPECIFIED (6) Elevated troponin Assessment/Plan: Mildly elevated (and decreased compared with 07/04 admission), with normal CK, no acute STT changes on EKG, no arrhythmias, and normal LVEF on ECHO. NO chest pain or dyspnea. Sepsis, anxiety, CHF, anemia are among the lidely contirbutors to demand ischemia. Chronci left LE edema post-CVA. Code(s): R74.8 - ABNORMAL LEVELS OF OTHER SERUM ENZYMES (7) Dehydration Code(s): E86.0 - DEHYDRATION (8) Renal dysfunction Code(s): N28.9 - DISORDER OF KIDNEY AND URETER, UNSPECIFIED (9) CVA (cerebrovascular accident) Assessment/Plan: residual Left-sided weakness Maintain aggressve control of lipids. F/u with neurologist. Code(s): I63.9 - CEREBRAL INFARCTION, UNSPECIFIED (10) Anemia Code(s): D64.9 - ANEMIA, UNSPECIFIED
[2018-08-23] MEDS: ATORVASTATIN CA 10 MG TABLET (FP) PO SCH (21:18)
[2018-08-23] MEDS: TERAZOSIN HCL 1 MG CAPSULE PO SCH (21:18)
[2018-08-23] MEDS: RANITIDINE HCL 150 MG TABLET (FP) PO SCH (21:18)
[2018-08-24] MEDS ORDERED: DEXTROSE 5%-WATER - 50 ML IVPB ONE ×3 (01:54→16:46)
[2018-08-24] MEDS ORDERED: PIPERACILLIN/TAZOBACTAM 2.25 GM VIAL IVPB ONE ×3 (01:54→16:46)
[2018-08-24] MEDS: PIPERACILLIN/TAZOB 2.25 GM 2.25 GM in DEXTROSE 5%-WATER - 50 ML IVPB SCH ×3 (01:59→17:16)
[2018-08-24 07:36] LABS: BASO % 0.5 % (0-2.0); EOS % 2.2 % (0-4.5); HEMATOCRIT 32.6 % (35.4-49); LYMPH % 3.6 % (8-40); MCH 28.8 pg (25.7-33.7); MCHC 33.6 g/dl (32.0-35.9); MEAN CELL VOLUME 85.7 fl (80-96); MEAN PLT VOLUME 9.6 fl (7.5-11.1); MONO % 9.7 % (3.8-10.2); PLATELET COUNT 244 K/MM3 (134-434); RDW 16.6 % (11.9-15.9); WHITE BLOOD COUNT 16.7 K/mm3 (4.0-10.0)
[2018-08-24 07:49] LABS: ALBUMIN 1.8 g/dl (3.4-5.0); ALK PHOS 91 U/L (45-117); ANION GAP 8 MMOL/L (8-16); BILIRUBIN,TOTAL 0.4 mg/dL (0.2-1); BLOOD UREA NITROGEN 46 mg/dL (7-18); CALCIUM 7.7 mg/dL (8.5-10.1); CHLORIDE 112 mmol/L (98-107); CO2 17 mmol/L (21-32); CREATININE 2.2 mg/dL (0.55-1.3); GLUCOSE,RANDOM 179 mg/dL (74-106); SGOT/AST 10 U/L (15-37); SGPT/ALT 14 U/L (13-61); SODIUM 137 mmol/L (136-145); TOT PROT 4.5 g/dl (6.4-8.2)
[2018-08-24] MEDS: ESCITALOPRAM OXALATE 10 MG TABLET (FP) PO SCH (09:27)
[2018-08-24] MEDS: SILVER SULFADIAZINE 1% TOP CREAM 400 GM JAR TP SCH (09:27)
[2018-08-24] MEDS: ASCORBIC ACID 500 MG TABLET (FP) PO SCH (09:28)
[2018-08-24] MEDS: MULTIVITAMINS (DAILY MVI) TABLET (FP) PO SCH (09:28)
[2018-08-24] MEDS: ACETAMINOPHEN 325 MG TABLET (FP) PO PRN ×2 (09:30→17:26)
--- NOTE | 2018-08-24 09:39 | PN ---
Progress Note (short form) - Note Progress Note: urine clear no burt pain WBC elevated but decreasing cont burt plan for TURP early next week Problem List - Problems (1) Urinary retention due to benign prostatic hyperplasia Code(s): N40.1 - BENIGN PROSTATIC HYPERPLASIA WITH LOWER URINARY TRACT SYMP; R33.8 - OTHER RETENTION OF URINE
[2018-08-24 11:03] LABS: ANISOCYTOSIS 1+; MACROCYTOSIS 0; PLATELET ESTIMATE NORMAL
[2018-08-24] MEDS: D5-1/2NS+10 MEQ KCL - 10 MEQ/1,000 ML INFUS.BAG IV SCH ×3 (14:00→18:51)
[2018-08-24] MEDS ORDERED: ALBUTEROL SO4 0.083% IH SOL 2.5 MG/3 ML VIAL.NEB. NEB PRN (14:06)
--- NOTE | 2018-08-24 14:07 | PN ---
Progress Note (short form) - Note Progress Note: c/o pain in fingers and leg CBC, BMP 08/24/18 07:05 08/24/18 07:05 Vital Signs Period Temp Pulse Resp BP Sys/Leon Pulse Ox Last 24 Hr 97.7 F-98.9 F 71-92 16-20 107-124/52-61 97-97 S1S2 RRR Lungs cta ant,scattered rhonchi abd distended, +BS starr drainig yellow urine + pedal edema awake, alert, oriented to place, person and year stage 2 sacral ulcer imp 88 yo m with pmh of cva with mild left arm weakness, HTN, high cholesterol BPH with indwelling starr since this May 2018 was admitted in June for Pseudomonas UTI, went initially [facility] now returning for severe dehydration prerenal azotemia UTI with indwelling Starr +- pneumonia, comparison to June chest xray actually shows improvement iv antibiotic iv hydration-reduce rate dc in am if clinically better tentative TURP early next week will get cardiology clearance prior
--- NOTE | 2018-08-24 14:34 | PN ---
Progress Note, Physician Chief Complaint: Pt alert; initially denies having any pain, but when daughter reminds him that he had spoken earlier with her, he says he has moderate pain in his left foot, knee, and hand. History of Present Illness: The patient is an 88 year old white male, with a significant PMH of stroke (L sided deficit), cholecystectomy, hypertension, hyperlipidemia, prediabetes, BPH w/ burt, phimosis s/p circumcision (05/2018), stage 3 inner buttocks and sacral ulcers, who presents to the emergency department from [facility] for hypotension and + urine culture or pseudomonoas and after sliding off his bed and landing on his buttocks. The patient denies any head trauma, neck pain, loss of consciousness, denies backpain, or injury to any extremitites. Patient was dosed miralax approx 1 week ago due to constipation; recieved miralax everyday since then and has diarrhea for 1 week having upwards of 5-6 BMs a night. The miralax was stopped apprx 2 days ago. The patient was on ASA and heparin for pre-op for TURP, but both were stopped on 08/16/18. He received rocephin 1 day ago but did not recieve any abx today. At baseline patient walks with a walker. has a burt catheter PCP: deborah - Current Medication List Current Medications: Active Medications Acetaminophen (Tylenol -) 650 mg PO Q6H PRN PRN Reason: FEVER Albuterol Sulfate (Ventolin 0.083% Nebulizer Soln -) 1 amp NEB Q8H PRN PRN Reason: SHORT OF BREATH/WHEEZING Amino Acids (Prosource No Carb Liquid Pkt) 30 ml PO BID@0800,1730 [facility] Ascorbic Acid (Vitamin C -) 500 mg PO DAILY [facility] Last Admin: 08/24/18 09:28 Dose: 500 mg Atorvastatin Calcium (Lipitor -) 10 mg PO HS [facility] Last Admin: 08/23/18 21:18 Dose: 10 mg Escitalopram Oxalate (Lexapro -) 10 mg PO DAILY [facility] Last Admin: 08/24/18 09:27 Dose: 10 mg Piperacillin Sod/Tazobactam (Sod 2.25 gm/ Dextrose) 50 mls @ 100 mls/hr IVPB Q8H-IV [facility]; Protocol Last Admin: 08/24/18 09:27 Dose: 100 mls/hr Potassium Chloride/Dextrose/Sod Cl (D5-1/2ns+10 Meq Kcl -) 10 meq in 1,000 mls @ 45 mls/hr IV ASDIR [facility] Stop: 08/25/18 07:00 Multivitamins/Minerals/Vitamin C (Tab-A-Vit -) 1 tab PO DAILY [facility] Last Admin: 08/24/18 09:28 Dose: 1 tab Ranitidine HCl (Zantac -) 150 mg PO HS [facility] Last Admin: 08/23/18 21:18 Dose: 150 mg Silver Sulfadiazine (Silvadene -) 1 applic TP DAILY [facility] Last Admin: 08/24/18 09:27 Dose: 1 applic Terazosin HCl (Hytrin -) 2 mg PO HS [facility] Last Admin: 08/23/18 21:18 Dose: 2 mg - Objective Vital Signs: Vital Signs Temperature 98.9 F 08/24/18 02:00 Pulse Rate 92 H 08/24/18 06:00 Respiratory Rate 20 08/24/18 06:00 Blood Pressure 107/56 L 08/24/18 06:00 O2 Sat by Pulse Oximetry (%) 97 08/24/18 09:00 Labs: CBC, BMP 08/24/18 07:05 08/24/18 07:05 INR, PTT INR 1.14 (0.83-1.09) H 08/22/18 05:30 Problem List - Problems (1) Depression Code(s): F32.9 - MAJOR DEPRESSIVE DISORDER, SINGLE EPISODE, UNSPECIFIED (2) HTN (hypertension) Code(s): I10 - ESSENTIAL (PRIMARY) HYPERTENSION (3) Sepsis Code(s): A41.9 - SEPSIS, UNSPECIFIED ORGANISM (4) Hyperlipidemia Assessment/Plan: On atorvastatin, with very well-contolled cholesterol. Code(s): E78.5 - HYPERLIPIDEMIA, UNSPECIFIED (5) UTI (urinary tract infection) due to urinary indwelling catheter Assessment/Plan: From a cardiac standpoint, there are no absolute contraindications for Mr. Burch to undergo TURP, once sepsis is resolved. Code(s): T83.511A - I/I REACT D/T INDWELLING URETHRAL CATHETER, INIT; N39.0 - URINARY TRACT INFECTION, SITE NOT SPECIFIED (6) Elevated troponin Assessment/Plan: Mildly elevated (and decreased compared with 07/04 admission), with normal CK, no acute STT changes on EKG, no arrhythmias, and normal LVEF on ECHO. NO chest pain or dyspnea. Sepsis, anxiety, CHF, anemia are among the lidely contirbutors to demand ischemia. Chronci left LE edema post-CVA. Code(s): R74.8 - ABNORMAL LEVELS OF OTHER SERUM ENZYMES (7) Dehydration Code(s): E86.0 - DEHYDRATION (8) Renal dysfunction Code(s): N28.9 - DISORDER OF KIDNEY AND URETER, UNSPECIFIED (9) CVA (cerebrovascular accident) Assessment/Plan: residual Left-sided weakness Maintain aggressve control of lipids. F/u with neurologist. Code(s): I63.9 - CEREBRAL INFARCTION, UNSPECIFIED (10) Anemia Code(s): D64.9 - ANEMIA, UNSPECIFIED
[2018-08-24] MEDS: AMINO ACIDS/PROTEIN HYDROLYS 30 ML LIQUID.PKT PO SCH (17:16)
[2018-08-24] MEDS: TERAZOSIN HCL 1 MG CAPSULE PO SCH (21:52)
[2018-08-24] MEDS: ATORVASTATIN CA 10 MG TABLET (FP) PO SCH (21:52)
[2018-08-24] MEDS: RANITIDINE HCL 150 MG TABLET (FP) PO SCH (21:52)
[2018-08-25] MEDS ORDERED: PIPERACILLIN/TAZOBACTAM 2.25 GM VIAL IVPB ONE ×3 (00:52→17:18)
[2018-08-25] MEDS ORDERED: DEXTROSE 5%-WATER - 50 ML IVPB ONE ×3 (00:52→17:18)
[2018-08-25] MEDS: PIPERACILLIN/TAZOB 2.25 GM 2.25 GM in DEXTROSE 5%-WATER - 50 ML IVPB SCH ×3 (01:04→17:25)
[2018-08-25] MEDS: ACETAMINOPHEN 325 MG TABLET (FP) PO PRN ×3 (01:07→20:11)
[2018-08-25] MEDS: AMINO ACIDS/PROTEIN HYDROLYS 30 ML LIQUID.PKT PO SCH ×2 (08:37→17:25)
--- NOTE | 2018-08-25 09:06 | PN ---
Progress Note (short form) - Note Progress Note: c/o pain in left elbow, and feet CBC, BMP 08/24/18 07:05 08/24/18 07:05 Vital Signs Period Temp Pulse Resp BP Sys/Leon Pulse Ox Last 24 Hr 97.8 F-98.5 F 71-89 20-20 109-121/38-65 S1S2 RRR Lungs cta ant,scattered rhonchi abd distended, +BS starr draining yellow urine + pedal edema awake, alert, oriented to place, person and year stage 2 sacral ulcer left elbow slightly swollen, tender, no red, not hot imp 88 yo m with pmh of cva with mild left arm weakness, HTN, high cholesterol BPH with indwelling starr since this May 2018 was admitted in June for Pseudomonas UTI, went initially [facility] now returning for severe dehydration prerenal azotemia UTI with indwelling Starr +- pneumonia, comparison to June chest xray actually shows improvement elbow pain, arthralgia, similar event during last admission, responded well to celebrex iv antibiotic stop iv fluids check Uric acid and esr if renal fnct better will start celebrex, for now apply topical lidoderm to elbow if clinically better tentative TURP early next week appreciate cardiology clearance needs aggressive physical therapy can transfer to regular floor
[2018-08-25] MEDS: MULTIVITAMINS (DAILY MVI) TABLET (FP) PO SCH (10:16)
[2018-08-25] MEDS: ASCORBIC ACID 500 MG TABLET (FP) PO SCH (10:17)
[2018-08-25] MEDS: ESCITALOPRAM OXALATE 10 MG TABLET (FP) PO SCH (10:17)
[2018-08-25] MEDS: LIDOCAINE 5% TOPICAL PATCH TP SCH (10:21)
[2018-08-25] MEDS: SILVER SULFADIAZINE 1% TOP CREAM 400 GM JAR TP SCH (10:29)
[2018-08-25] MEDS ORDERED: PT OWN MED DRAWER 7, Y5N ONE ×2 (10:31→21:13)
--- NOTE | 2018-08-25 16:07 | PN ---
Progress Note, Physician History of Present Illness: AWAKE, ALERT C/O MUSCULOSKELETAL PAIN FROM RECENT FALL LANG ON PLACE CLOUDY URINE NO C/O F/C AFEBRILE WBC IMPROVED - Current Medication List Current Medications: Active Medications Acetaminophen (Tylenol -) 650 mg PO Q6H PRN PRN Reason: PAIN Albuterol Sulfate (Ventolin 0.083% Nebulizer Soln -) 1 amp NEB Q8H PRN PRN Reason: SHORT OF BREATH/WHEEZING Last Admin: 08/24/18 18:03 Dose: 1 amp Amino Acids (Prosource No Carb Liquid Pkt) 30 ml PO BID@0800,1730 [facility] Last Admin: 08/25/18 08:37 Dose: 30 ml Ascorbic Acid (Vitamin C -) 500 mg PO DAILY [facility] Last Admin: 08/25/18 10:17 Dose: 500 mg Atorvastatin Calcium (Lipitor -) 10 mg PO HS [facility] Last Admin: 08/24/18 21:52 Dose: 10 mg Escitalopram Oxalate (Lexapro -) 10 mg PO DAILY [facility] Last Admin: 08/25/18 10:17 Dose: 10 mg Piperacillin Sod/Tazobactam (Sod 2.25 gm/ Dextrose) 50 mls @ 100 mls/hr IVPB Q8H-IV [facility]; Protocol Last Admin: 08/25/18 10:16 Dose: 100 mls/hr Lidocaine (Lidoderm Patch -) 1 patch TP DAILY [facility] Last Admin: 08/25/18 10:21 Dose: 1 patch Miscellaneous (Lidoderm Patch Removal) 1 each MC DAILY@2200 [facility] Multivitamins/Minerals/Vitamin C (Tab-A-Vit -) 1 tab PO DAILY [facility] Last Admin: 08/25/18 10:16 Dose: 1 tab Ranitidine HCl (Zantac -) 150 mg PO HS [facility] Last Admin: 08/24/18 21:52 Dose: 150 mg Silver Sulfadiazine (Silvadene -) 1 applic TP DAILY [facility] Last Admin: 08/25/18 10:29 Dose: 1 applic Terazosin HCl (Hytrin -) 2 mg PO HS [facility] Last Admin: 08/24/18 21:52 Dose: 2 mg - Objective Vital Signs: Vital Signs Temperature 98.5 F 08/25/18 02:00 Pulse Rate 80 08/25/18 06:00 Respiratory Rate 20 08/25/18 06:00 Blood Pressure 111/38 L 08/25/18 06:00 O2 Sat by Pulse Oximetry (%) 97 08/24/18 09:00 Constitutional: Yes: No Distress Eyes: Yes: Conjunctiva Clear Cardiovascular: Yes: Regular Rate and Rhythm, S1, S2 Respiratory: Yes: CTA Bilaterally Gastrointestinal: Yes: Normal Bowel Sounds, Soft, Abdomen, Obese. No: Tenderness Musculoskeletal: Yes: Other (L FOOT EDEMA) Labs: CBC, BMP 08/24/18 07:05 08/24/18 07:05 INR, PTT INR 1.14 (0.83-1.09) H 08/22/18 05:30 Assessment/Plan RECURRENT UTI URINARY RETENTION HX +URINE C/S PSEUDOMONAS CKD CONTINUE ZOSYN FOR TURP AFTER INFECTION TREATED
[2018-08-25] MEDS ORDERED: ALBUTEROL SO4 0.083% IH SOL 2.5 MG/3 ML VIAL.NEB. NEB PRN (19:11)
[2018-08-25] MEDS: LIDOCAINE PATCH REMOVAL MC SCH (22:32)
[2018-08-25] MEDS: ATORVASTATIN CA 10 MG TABLET (FP) PO SCH (22:32)
[2018-08-25] MEDS: RANITIDINE HCL 150 MG TABLET (FP) PO SCH (22:32)
[2018-08-25] MEDS: TERAZOSIN HCL 1 MG CAPSULE PO SCH (22:32)
[2018-08-26] MEDS ORDERED: traMADol HCL 50 MG TABLET PO ONE ×2 (00:07→20:30)
[2018-08-26] MEDS ORDERED: PIPERACILLIN/TAZOBACTAM 2.25 GM VIAL IVPB ONE ×3 (01:48→17:14)
[2018-08-26] MEDS ORDERED: DEXTROSE 5%-WATER - 50 ML IVPB ONE ×3 (01:48→17:14)
[2018-08-26] MEDS: PIPERACILLIN/TAZOB 2.25 GM 2.25 GM in DEXTROSE 5%-WATER - 50 ML IVPB SCH ×3 (02:01→17:52)
[2018-08-26] MEDS: AMINO ACIDS/PROTEIN HYDROLYS 30 ML LIQUID.PKT PO SCH ×2 (08:16→17:52)
[2018-08-26 08:40] LABS: BASO % 0.3 % (0-2.0); EOS % 2.9 % (0-4.5); HEMATOCRIT 28.9 % (35.4-49); HEMOGLOBIN 9.6 GM/dL (11.7-16.9); LYMPH % 6.7 % (8-40); MCH 28.9 pg (25.7-33.7); MCHC 33.4 g/dl (32.0-35.9); MEAN CELL VOLUME 86.6 fl (80-96); MEAN PLT VOLUME 9.4 fl (7.5-11.1); MONO % 8.2 % (3.8-10.2); NEUT % 81.9 % (42.8-82.8); PLATELET COUNT 255 K/MM3 (134-434); RBC 3.34 M/mm3 (4.00-5.60); RDW 17.4 % (11.9-15.9)
[2018-08-26 09:21] LABS: ALBUMIN 1.2 g/dl (3.4-5.0); ALK PHOS 120 U/L (45-117); ANION GAP 10 MMOL/L (8-16); BILIRUBIN,TOTAL 0.3 mg/dL (0.2-1); BLOOD UREA NITROGEN 40 mg/dL (7-18); CHLORIDE 114 mmol/L (98-107); CO2 17 mmol/L (21-32); GLUCOSE,RANDOM 91 mg/dL (74-106); POTASSIUM 4.4 mmol/L (3.5-5.1); SGOT/AST 17 U/L (15-37); SGPT/ALT 21 U/L (13-61); SODIUM 141 mmol/L (136-145); TOT PROT 4.5 g/dl (6.4-8.2)
[2018-08-26 09:32] LABS: CALCIUM 6.7 mg/dL (8.5-10.1)
[2018-08-26 10:01] LABS: ANISOCYTOSIS 0; MACROCYTOSIS 0; PLATELET ESTIMATE NORMAL
[2018-08-26 10:12] LABS: ERYTHROCYTE SEDIMENTATION RATE 97 mm/hr (0-20)
[2018-08-26] MEDS: MULTIVITAMINS (DAILY MVI) TABLET (FP) PO SCH (10:16)
[2018-08-26] MEDS: LIDOCAINE 5% TOPICAL PATCH TP SCH (10:17)
[2018-08-26] MEDS: ESCITALOPRAM OXALATE 10 MG TABLET (FP) PO SCH (10:17)
[2018-08-26] MEDS: ASCORBIC ACID 500 MG TABLET (FP) PO SCH (10:17)
[2018-08-26] MEDS: SILVER SULFADIAZINE 1% TOP CREAM 400 GM JAR TP SCH (10:23)
--- NOTE | 2018-08-26 12:16 | PN ---
Progress Note (short form) - Note Progress Note: afebrile urine clear no burt pain WBC still elevated-unclear as to why cont burt plan for TURP on tuesday if medically clear Problem List - Problems (1) Urinary retention due to benign prostatic hyperplasia Code(s): N40.1 - BENIGN PROSTATIC HYPERPLASIA WITH LOWER URINARY TRACT SYMP; R33.8 - OTHER RETENTION OF URINE
[2018-08-26] MEDS ORDERED: PT OWN MED DRAWER 7, Y5N ONE (21:58)
[2018-08-26] MEDS: RANITIDINE HCL 150 MG TABLET (FP) PO SCH (22:31)
[2018-08-26] MEDS: ATORVASTATIN CA 10 MG TABLET (FP) PO SCH (22:32)
[2018-08-26] MEDS: LIDOCAINE PATCH REMOVAL MC SCH (22:52)
[2018-08-26] MEDS: TERAZOSIN HCL 1 MG CAPSULE PO SCH (22:52)
--- NOTE | 2018-08-26 23:06 | PN ---
Progress Note, Physician Chief Complaint: c/o joint pain, more in hands - Current Medication List Current Medications: Active Medications Acetaminophen (Tylenol -) 650 mg PO Q6H PRN PRN Reason: PAIN Last Admin: 08/25/18 20:11 Dose: 650 mg Albuterol Sulfate (Ventolin 0.083% Nebulizer Soln -) 1 amp NEB Q8H PRN PRN Reason: SHORT OF BREATH/WHEEZING Amino Acids (Prosource No Carb Liquid Pkt) 30 ml PO BID@0800,1730 [facility] INCLUDES [facility] Last Admin: 08/26/18 17:52 Dose: 30 ml Ascorbic Acid (Vitamin C -) 500 mg PO DAILY COUNT [facility]CLUDES [facility] Last Admin: 08/26/18 10:17 Dose: 500 mg Atorvastatin Calcium (Lipitor -) 10 mg PO HS COUNT INCLUDES [facility] Last Admin: 08/26/18 22:32 Dose: 10 mg Escitalopram Oxalate (Lexapro -) 10 mg PO DAILY COUNT [facility]CLUD[facility] Last Admin: 08/26/18 10:17 Dose: 10 mg Piperacillin Sod/Tazobactam (Sod 2.25 gm/ Dextrose) 50 mls @ 100 mls/hr IVPB Q8H-IV [facility]; Protocol Last Admin: 08/26/18 17:52 Dose: 100 mls/hr Lidocaine (Lidoderm Patch -) 1 patch TP DAILY [facility] Last Admin: 08/26/18 10:17 Dose: 1 patch Miscellaneous (Lidoderm Patch Removal) 1 each MC DAILY@2200 [facility] Last Admin: 08/25/18 22:32 Dose: 1 each Multivitamins/Minerals/Vitamin C (Tab-A-Vit -) 1 tab PO DAILY [facility] Last Admin: 08/26/18 10:16 Dose: 1 tab Ranitidine HCl (Zantac -) 150 mg PO HS [facility] Last Admin: 08/26/18 22:31 Dose: 150 mg Silver Sulfadiazine (Silvadene -) 1 applic TP DAILY [facility] Last Admin: 08/26/18 10:23 Dose: 1 appful Terazosin HCl (Hytrin -) 2 mg PO HS COUNT [facility] Last Admin: 08/25/18 22:32 Dose: 2 mg - Objective Vital Signs: Vital Signs Temperature 98.3 F 08/26/18 14:43 Pulse Rate 83 08/26/18 14:43 Respiratory Rate 17 08/26/18 10:00 Blood Pressure 122/62 08/26/18 14:43 O2 Sat by Pulse Oximetry (%) 97 08/24/18 09:00 Constitutional: Yes: No Distress Neck: Yes: Supple Cardiovascular: Yes: Regular Rate and Rhythm, S1, S2 Respiratory: Yes: CTA Bilaterally Gastrointestinal: Yes: Normal Bowel Sounds, Soft Musculoskeletal: Yes: Joint Swelling Neurological: Yes: Alert, Oriented. No: Loss of Sensation Labs: CBC, BMP 08/26/18 07:00 08/26/18 07:00 INR, PTT INR 1.14 (0.83-1.09) H 08/22/18 05:30 Problem List - Problems (1) UTI (urinary tract infection) Assessment/Plan: On Zosyn, WBC improving slowly Code(s): N39.0 - URINARY TRACT INFECTION, SITE NOT SPECIFIED (2) AURELIA (acute kidney injury) Assessment/Plan: Cr improving Code(s): N17.9 - ACUTE KIDNEY FAILURE, UNSPECIFIED (3) Gout Assessment/Plan: Joint findings with swelling, tenderness and temperature consistent with gout. ESR and uric acid elevated, Will start Prednisone. Code(s): M10.9 - GOUT, UNSPECIFIED
[2018-08-27] MEDS ORDERED: PIPERACILLIN/TAZOBACTAM 2.25 GM VIAL IVPB ONE ×3 (01:56→17:36)
[2018-08-27] MEDS ORDERED: DEXTROSE 5%-WATER - 50 ML IVPB ONE ×3 (01:57→17:36)
[2018-08-27] MEDS: PIPERACILLIN/TAZOB 2.25 GM 2.25 GM in DEXTROSE 5%-WATER - 50 ML IVPB SCH ×3 (01:59→17:40)
[2018-08-27] MEDS: predniSONE 20 MG TABLET (UD) PO SCH ×2 (10:35→22:17)
[2018-08-27] MEDS: ASCORBIC ACID 500 MG TABLET (FP) PO SCH (10:35)
[2018-08-27] MEDS: AMINO ACIDS/PROTEIN HYDROLYS 30 ML LIQUID.PKT PO SCH ×2 (10:35→17:41)
[2018-08-27] MEDS: MULTIVITAMINS (DAILY MVI) TABLET (FP) PO SCH (10:35)
[2018-08-27] MEDS: ACETAMINOPHEN 325 MG TABLET (FP) PO PRN (10:35)
[2018-08-27] MEDS: ESCITALOPRAM OXALATE 10 MG TABLET (FP) PO SCH (10:35)
[2018-08-27] MEDS: LIDOCAINE 5% TOPICAL PATCH TP SCH (10:36)
--- NOTE | 2018-08-27 12:25 | PN ---
Progress Note, Physician Chief Complaint: Hand joints less inflamed today. - Current Medication List Current Medications: Active Medications Acetaminophen (Tylenol -) 650 mg PO Q6H PRN PRN Reason: PAIN Last Admin: 08/27/18 10:35 Dose: 650 mg Albuterol Sulfate (Ventolin 0.083% Nebulizer Soln -) 1 amp NEB Q8H PRN PRN Reason: SHORT OF BREATH/WHEEZING Amino Acids (Prosource No Carb Liquid Pkt) 30 ml PO BID@0800,1730 [facility] Last Admin: 08/27/18 10:35 Dose: 30 ml Ascorbic Acid (Vitamin C -) 500 mg PO DAILY [facility] Last Admin: 08/27/18 10:35 Dose: 500 mg Atorvastatin Calcium (Lipitor -) 10 mg PO HS [facility] Last Admin: 08/26/18 22:32 Dose: 10 mg Escitalopram Oxalate (Lexapro -) 10 mg PO DAILY [facility] Last Admin: 08/27/18 10:35 Dose: 10 mg Piperacillin Sod/Tazobactam (Sod 2.25 gm/ Dextrose) 50 mls @ 100 mls/hr IVPB Q8H-IV [facility]; Protocol Last Admin: 08/27/18 10:36 Dose: 100 mls/hr Lidocaine (Lidoderm Patch -) 1 patch TP DAILY [facility] Last Admin: 08/27/18 10:36 Dose: 1 patch Miscellaneous (Lidoderm Patch Removal) 1 each MC DAILY@2200 [facility] Last Admin: 08/26/18 22:52 Dose: 1 each Multivitamins/Minerals/Vitamin C (Tab-A-Vit -) 1 tab PO DAILY [facility] Last Admin: 08/27/18 10:35 Dose: 1 tab Prednisone (Deltasone -) 20 mg PO BID [facility] Last Admin: 08/27/18 10:35 Dose: 20 mg Ranitidine HCl (Zantac -) 150 mg PO HS [facility] Last Admin: 08/26/18 22:31 Dose: 150 mg Silver Sulfadiazine (Silvadene -) 1 applic TP DAILY [facility] Last Admin: 08/26/18 10:23 Dose: 1 appful Terazosin HCl (Hytrin -) 2 mg PO HS [facility] Last Admin: 08/26/18 22:52 Dose: 2 mg - Objective Vital Signs: Vital Signs Temperature 98.3 F 08/26/18 22:00 Pulse Rate 88 08/26/18 22:00 Respiratory Rate 20 08/26/18 22:00 Blood Pressure 128/63 08/26/18 22:00 O2 Sat by Pulse Oximetry (%) 97 08/24/18 09:00 Constitutional: Yes: No Distress HENT: Yes: Atraumatic Neck: Yes: Supple Cardiovascular: Yes: Regular Rate and Rhythm, S1, S2 Respiratory: Yes: CTA Bilaterally Gastrointestinal: Yes: Normal Bowel Sounds, Soft Neurological: Yes: Alert, Oriented. No: Loss of Sensation Labs: CBC, BMP 08/26/18 07:00 08/26/18 07:00 INR, PTT INR 1.14 (0.83-1.09) H 08/22/18 05:30 Problem List - Problems (1) UTI (urinary tract infection) Assessment/Plan: On Zosyn. Code(s): N39.0 - URINARY TRACT INFECTION, SITE NOT SPECIFIED (2) Gout Assessment/Plan: Better today on Prednisone. Code(s): M10.9 - GOUT, UNSPECIFIED
[2018-08-27] MEDS: SILVER SULFADIAZINE 1% TOP CREAM 400 GM JAR TP SCH (17:43)
[2018-08-27] MEDS ORDERED: PT OWN MED DRAWER 7, Y5N ONE (20:59)
[2018-08-27] MEDS: LIDOCAINE PATCH REMOVAL MC SCH (22:17)
[2018-08-27] MEDS: TERAZOSIN HCL 1 MG CAPSULE PO SCH (22:17)
[2018-08-27] MEDS: RANITIDINE HCL 150 MG TABLET (FP) PO SCH (22:17)
[2018-08-27] MEDS: ATORVASTATIN CA 10 MG TABLET (FP) PO SCH (22:17)
[2018-08-28] MEDS ORDERED: PIPERACILLIN/TAZOBACTAM 2.25 GM VIAL IVPB ONE ×3 (02:34→18:05)
[2018-08-28] MEDS ORDERED: DEXTROSE 5%-WATER - 50 ML IVPB ONE ×3 (02:34→18:05)
[2018-08-28] MEDS: PIPERACILLIN/TAZOB 2.25 GM 2.25 GM in DEXTROSE 5%-WATER - 50 ML IVPB SCH ×3 (02:45→18:59)
[2018-08-28 08:03] LABS: BASO % 0.3 % (0-2.0); EOS % 0.1 % (0-4.5); HEMATOCRIT 30.6 % (35.4-49); HEMOGLOBIN 10.2 GM/dL (11.7-16.9); LYMPH % 4.4 % (8-40); MCH 28.5 pg (25.7-33.7); MCHC 33.2 g/dl (32.0-35.9); MEAN CELL VOLUME 85.7 fl (80-96); MEAN PLT VOLUME 9.7 fl (7.5-11.1); MONO % 3.9 % (3.8-10.2); NEUT % 91.3 % (42.8-82.8); PLATELET COUNT 287 K/MM3 (134-434); RBC 3.57 M/mm3 (4.00-5.60); RDW 16.6 % (11.9-15.9); WHITE BLOOD COUNT 14.2 K/mm3 (4.0-10.0)
[2018-08-28 08:32] LABS: ALBUMIN 1.8 g/dl (3.4-5.0); ALK PHOS 212 U/L (45-117); ANION GAP 8 MMOL/L (8-16); BILIRUBIN,TOTAL 0.2 mg/dL (0.2-1); BLOOD UREA NITROGEN 67 mg/dL (7-18); CALCIUM 8.1 mg/dL (8.5-10.1); CHLORIDE 112 mmol/L (98-107); CO2 21 mmol/L (21-32); GLUCOSE,RANDOM 177 mg/dL (74-106); SGOT/AST 35 U/L (15-37); SGPT/ALT 42 U/L (13-61); SODIUM 141 mmol/L (136-145); TOT PROT 4.8 g/dl (6.4-8.2)
[2018-08-28] MEDS: AMINO ACIDS/PROTEIN HYDROLYS 30 ML LIQUID.PKT PO SCH (08:59)
[2018-08-28] MEDS: MULTIVITAMINS (DAILY MVI) TABLET (FP) PO SCH (09:00)
[2018-08-28] MEDS: ASCORBIC ACID 500 MG TABLET (FP) PO SCH (09:00)
--- NOTE | 2018-08-28 09:24 | PN ---
Progress Note (short form) - Note Progress Note: CBC, BMP 08/28/18 07:00 08/28/18 07:00 Vital Signs Period Temp Pulse Resp BP Sys/Leon Pulse Ox Last 24 Hr 97.6 F-98.5 F 60-68 18 107-115/49-60 96 S1S2 RRR Lungs cta ant abd distended, +BS burt draining yellow urine + pedal edema awake, alert, oriented to place, person and year stage 2 sacral ulcer alert, denies pain imp 88 yo m with pmh of cva with mild left arm weakness, HTN, high cholesterol BPH with indwelling burt since this May 2018 was admitted in June for Pseudomonas UTI now admitted for severe dehydration prerenal azotemia UTI with indwelling Burt +- pneumonia, comparison to June chest xray actually shows improvement elbow pain, arthralgia, better on prednisone iv antibiotic as per ID no medical contraindication to TURP today medically optimized appreciate cardiology clearance needs aggressive physical therapy d/w daughter at length over the phone
[2018-08-28] MEDS: LIDOCAINE 5% TOPICAL PATCH TP SCH (09:48)
--- NOTE | 2018-08-28 10:18 | PN ---
Progress Note, Physician History of Present Illness: AWAKE, ALERT NO COMPLAINTS LANG IN PLACE NO C/O F/C AFEBRILE WBC IMPROVED - Current Medication List Current Medications: Active Medications Acetaminophen (Tylenol -) 650 mg PO Q6H PRN PRN Reason: PAIN Last Admin: 08/27/18 10:35 Dose: 650 mg Piperacillin Sod/Tazobactam (Sod 2.25 gm/ Dextrose) 50 mls @ 100 mls/hr IVPB Q8H-IV [facility]; Protocol Last Admin: 08/28/18 09:48 Dose: 100 mls/hr Lidocaine (Lidoderm Patch -) 1 patch TP DAILY COUNT [facility]CLUD[facility] Last Admin: 08/28/18 09:48 Dose: 1 patch Miscellaneous (Lidoderm Patch Removal) 1 each MC DAILY@2200 COUNT [facility]CLUDES [facility] Last Admin: 08/27/18 22:17 Dose: 1 each Multivitamins/Minerals/Vitamin C (Tab-A-Vit -) 1 tab PO DAILY COUNT [facility]CLUDES [facility] Last Admin: 08/28/18 09:00 Dose: Not Given Ranitidine HCl (Zantac -) 150 mg PO HS COUNT [facility]CLUDES [facility] Last Admin: 08/27/18 22:17 Dose: 150 mg Silver Sulfadiazine (Silvadene -) 1 applic TP DAILY COUNT [facility]CLUD[facility] Last Admin: 08/27/18 17:43 Dose: 1 applic Terazosin HCl (Hytrin -) 2 mg PO HS COUNT [facility]CLUD[facility] Last Admin: 08/27/18 22:17 Dose: 2 mg - Objective Vital Signs: Vital Signs Temperature 98.0 F 08/28/18 05:00 Pulse Rate 60 08/28/18 05:00 Respiratory Rate 18 08/27/18 20:08 Blood Pressure 114/49 L 08/28/18 05:00 O2 Sat by Pulse Oximetry (%) 96 08/27/18 21:00 Constitutional: Yes: No Distress Eyes: Yes: Conjunctiva Clear Cardiovascular: Yes: Regular Rate and Rhythm, S1, S2 Respiratory: Yes: CTA Bilaterally Gastrointestinal: Yes: Normal Bowel Sounds, Soft, Abdomen, Obese. No: Tenderness Extremities: Yes: Other (+ L FOOT EDEMA) Labs: CBC, BMP 08/28/18 07:00 08/28/18 07:00 INR, PTT INR 1.14 (0.83-1.09) H 08/22/18 05:30 Assessment/Plan RECURRENT UTI URINARY RETENTION HX +URINE C/S PSEUDOMONAS CKD CONTINUE ZOSYN FOR TURP TODAY
[2018-08-28 11:00] LABS: ANISOCYTOSIS 0; HELMET CELLS 0; HOWELL-JOLLY BODIES 0; MACROCYTOSIS 0; OVALOCYTE 0; PLATELET ESTIMATE NORMAL; ROULEAU 0; SICKELED CELLS 0; TARGET CELLS 0; TEAR DROP CELLS 0; TOXIC GRANULATION 0
--- NOTE | 2018-08-28 11:00 | PN ---
Progress Note, Physician Chief Complaint: Pt alert; no chest pain, no dyspnea. History of Present Illness: The patient is an 88 year old white male, with a significant PMH of stroke (L sided deficit), cholecystectomy, hypertension, hyperlipidemia, prediabetes, BPH w/ burt, phimosis s/p circumcision (05/2018), stage 3 inner buttocks and sacral ulcers, who presents to the emergency department from [facility] for hypotension and + urine culture or pseudomonoas and after sliding off his bed and landing on his buttocks. The patient denies any head trauma, neck pain, loss of consciousness, denies backpain, or injury to any extremitites. Patient was dosed miralax approx 1 week ago due to constipation; recieved miralax everyday since then and has diarrhea for 1 week having upwards of 5-6 BMs a night. The miralax was stopped apprx 2 days ago. The patient was on ASA and heparin for pre-op for TURP, but both were stopped on 08/16/18. He received rocephin 1 day ago but did not recieve any abx today. At baseline patient walks with a walker. has a burt catheter PCP: deborah - Current Medication List Current Medications: Active Medications Acetaminophen (Tylenol -) 650 mg PO Q6H PRN PRN Reason: PAIN Last Admin: 08/27/18 10:35 Dose: 650 mg Piperacillin Sod/Tazobactam (Sod 2.25 gm/ Dextrose) 50 mls @ 100 mls/hr IVPB Q8H-IV [facility]; Protocol Last Admin: 08/28/18 09:48 Dose: 100 mls/hr Lidocaine (Lidoderm Patch -) 1 patch TP DAILY [facility] Last Admin: 08/28/18 09:48 Dose: 1 patch Miscellaneous (Lidoderm Patch Removal) 1 each MC DAILY@2200 [facility] Last Admin: 08/27/18 22:17 Dose: 1 each Multivitamins/Minerals/Vitamin C (Tab-A-Vit -) 1 tab PO DAILY [facility] Last Admin: 08/28/18 09:00 Dose: Not Given Ranitidine HCl (Zantac -) 150 mg PO HS [facility] Last Admin: 08/27/18 22:17 Dose: 150 mg Silver Sulfadiazine (Silvadene -) 1 applic TP DAILY [facility] Last Admin: 08/27/18 17:43 Dose: 1 applic Terazosin HCl (Hytrin -) 2 mg PO HS [facility] Last Admin: 08/27/18 22:17 Dose: 2 mg - Objective Vital Signs: Vital Signs Temperature 98.0 F 08/28/18 05:00 Pulse Rate 60 08/28/18 05:00 Respiratory Rate 18 08/27/18 20:08 Blood Pressure 114/49 L 08/28/18 05:00 O2 Sat by Pulse Oximetry (%) 96 08/27/18 21:00 Constitutional: Yes: Calm Eyes: Yes: WNL HENT: Yes: WNL Neck: Yes: WNL Cardiovascular: Yes: S1, S2 Respiratory: Yes: Regular Gastrointestinal: Yes: Soft ...Rectal Exam: Yes: Deferred Genitourinary: Yes: Anuria, Burt Present Breast(s): Yes: WNL Musculoskeletal: Yes: Muscle Weakness Extremities: Yes: Cool Edema: No Peripheral Pulses WNL: Yes Integumentary: Yes: WNL Wound/Incision: Yes: Clean/Dry Neurological: Yes: Alert, Oriented Labs: CBC, BMP 08/28/18 07:00 08/28/18 07:00 INR, PTT INR 1.14 (0.83-1.09) H 08/22/18 05:30 Problem List - Problems (1) Depression Code(s): F32.9 - MAJOR DEPRESSIVE DISORDER, SINGLE EPISODE, UNSPECIFIED (2) Sepsis Assessment/Plan: UTI; PNA On antibiotics. Planned for TURP ?08/28/18. Code(s): A41.9 - SEPSIS, UNSPECIFIED ORGANISM (3) Hyperlipidemia Assessment/Plan: On atorvastatin, with very well-contolled cholesterol. Code(s): E78.5 - HYPERLIPIDEMIA, UNSPECIFIED (4) UTI (urinary tract infection) due to urinary indwelling catheter Assessment/Plan: From a cardiac standpoint, there are no absolute contraindications for Mr. Burch to undergo TURP, once sepsis is resolved. Code(s): T83.511A - I/I REACT D/T INDWELLING URETHRAL CATHETER, INIT; N39.0 - URINARY TRACT INFECTION, SITE NOT SPECIFIED (5) Elevated troponin Assessment/Plan: Mildly elevated (and decreased compared with 07/04 admission), with normal CK, no acute STT changes on EKG, no arrhythmias, and normal LVEF on ECHO. NO chest pain or dyspnea. Sepsis, anxiety, CHF, anemia are among the lidely contirbutors to demand ischemia. Chronci left LE edema post-CVA. Code(s): R74.8 - ABNORMAL LEVELS OF OTHER SERUM ENZYMES (6) Dehydration Assessment/Plan: IVF; f/u BUN?Cr. F/u with urologist. Code(s): E86.0 - DEHYDRATION (7) Renal dysfunction Code(s): N28.9 - DISORDER OF KIDNEY AND URETER, UNSPECIFIED (8) CVA (cerebrovascular accident) Code(s): I63.9 - CEREBRAL INFARCTION, UNSPECIFIED (9) Anemia Code(s): D64.9 - ANEMIA, UNSPECIFIED
[2018-08-28] MEDS: SILVER SULFADIAZINE 1% TOP CREAM 400 GM JAR TP SCH (12:02)
--- NOTE | 2018-08-28 12:55 | PN ---
Progress Note, Physician History of Present Illness: The patient is a 88 year old male, with a significant PMH of stroke (L sided deficit), cholecystectomy, hypertension, hyperlipidemia, prediabetes, BPH w/ burt, phimosis s/p circumcision (05/2018), stage 3 inner buttocks and sacral ulcers, who presents to the emergency department from [facility] for hypotension and + urine culture or pseudomonoas and after sliding off his bed and landing on his buttocks. The patient denies any head trauma, neck pain, loss of consciousness, denies backpain, or injury to any extremitites. Patient was dosed miralax approx 1 week ago due to constipation but has recieved miralax everyday since then and has diarrhea for 1 week having upwards of 5-6 BMs a night. The miralax was stopped apprx 2 days ago. The patient was on ASA and heparin for pre-op for TURP, but both were stopped on 08/16/18. He received rocephin 1 day ago but did not recieve any abx today. At baseline patient walks with a walker. has a burt catheter - Current Medication List Current Medications: Active Medications Acetaminophen (Tylenol -) 650 mg PO Q6H PRN PRN Reason: PAIN Last Admin: 08/27/18 10:35 Dose: 650 mg Piperacillin Sod/Tazobactam (Sod 2.25 gm/ Dextrose) 50 mls @ 100 mls/hr IVPB Q8H-IV [facility]; Protocol Last Admin: 08/28/18 09:48 Dose: 100 mls/hr Lidocaine (Lidoderm Patch -) 1 patch TP DAILY [facility] Last Admin: 08/28/18 09:48 Dose: 1 patch Miscellaneous (Lidoderm Patch Removal) 1 each MC DAILY@2200 [facility] Last Admin: 08/27/18 22:17 Dose: 1 each Multivitamins/Minerals/Vitamin C (Tab-A-Vit -) 1 tab PO DAILY [facility] Last Admin: 08/28/18 09:00 Dose: Not Given Ranitidine HCl (Zantac -) 150 mg PO HS [facility] Last Admin: 08/27/18 22:17 Dose: 150 mg Silver Sulfadiazine (Silvadene -) 1 applic TP DAILY [facility] Last Admin: 08/28/18 12:02 Dose: 1 applic Terazosin HCl (Hytrin -) 2 mg PO HS [facility] Last Admin: 08/27/18 22:17 Dose: 2 mg - Objective Vital Signs: Vital Signs Temperature 98.0 F 08/28/18 05:00 Pulse Rate 60 08/28/18 05:00 Respiratory Rate 18 08/27/18 20:08 Blood Pressure 114/49 L 08/28/18 05:00 O2 Sat by Pulse Oximetry (%) 96 08/27/18 21:00 Eyes: Yes: WNL, Conjunctiva Clear, EOM Intact HENT: Yes: WNL, Atraumatic, Normocephalic Neck: Yes: WNL, Supple, Trachea Midline Cardiovascular: Yes: WNL, Regular Rate and Rhythm Respiratory: Yes: WNL, Regular, CTA Bilaterally Gastrointestinal: Yes: WNL, Normal Bowel Sounds Genitourinary: Yes: WNL Musculoskeletal: Yes: WNL Extremities: Yes: WNL Edema: No Integumentary: Yes: WNL Neurological: Yes: WNL, Alert, Oriented ...Motor Strength: WNL Psychiatric: Yes: WNL Labs: CBC, BMP 08/28/18 07:00 08/28/18 07:00 INR, PTT INR 1.14 (0.83-1.09) H 08/22/18 05:30 Problem List - Problems (1) AURELIA (acute kidney injury) Code(s): N17.9 - ACUTE KIDNEY FAILURE, UNSPECIFIED (2) Atelectasis, left Code(s): J98.11 - ATELECTASIS (3) Depression Code(s): F32.9 - MAJOR DEPRESSIVE DISORDER, SINGLE EPISODE, UNSPECIFIED (4) HTN (hypertension) Code(s): I10 - ESSENTIAL (PRIMARY) HYPERTENSION (5) Prophylactic measure Code(s): Z29.9 - ENCOUNTER FOR PROPHYLACTIC MEASURES, UNSPECIFIED (6) Sepsis Code(s): A41.9 - SEPSIS, UNSPECIFIED ORGANISM (7) UTI (urinary tract infection) due to urinary indwelling catheter Code(s): T83.511A - I/I REACT D/T INDWELLING URETHRAL CATHETER, INIT; N39.0 - URINARY TRACT INFECTION, SITE NOT SPECIFIED (8) Acute on chronic diastolic CHF (congestive heart failure), NYHA class 1 Code(s): I50.33 - ACUTE ON CHRONIC DIASTOLIC (CONGESTIVE) HEART FAILURE (9) Elevated troponin I level Code(s): R74.8 - ABNORMAL LEVELS OF OTHER SERUM ENZYMES (10) Gout Code(s): M10.9 - GOUT, UNSPECIFIED (11) Hyperlipidemia Code(s): E78.5 - HYPERLIPIDEMIA, UNSPECIFIED (12) Urinary retention due to benign prostatic hyperplasia Code(s): N40.1 - BENIGN PROSTATIC HYPERPLASIA WITH LOWER URINARY TRACT SYMP; R33.8 - OTHER RETENTION OF URINE Assessment/Plan - Problems (1) Depression Code(s): F32.9 - MAJOR DEPRESSIVE DISORDER, SINGLE EPISODE, UNSPECIFIED (2) Sepsis Assessment/Plan: UTI; PNA On antibiotics. Planned for TURP ?08/28/18. Code(s): A41.9 - SEPSIS, UNSPECIFIED ORGANISM (3) Hyperlipidemia Assessment/Plan: On atorvastatin, with very well-contolled cholesterol. Code(s): E78.5 - HYPERLIPIDEMIA, UNSPECIFIED (4) UTI (urinary tract infection) due to urinary indwelling catheter Assessment/Plan: From a cardiac standpoint, there are no absolute contraindications for Mr. Burch to undergo TURP, once sepsis is resolved. Code(s): T83.511A - I/I REACT D/T INDWELLING URETHRAL CATHETER, INIT; N39.0 - URINARY TRACT INFECTION, SITE NOT SPECIFIED (5) Elevated troponin Assessment/Plan: Mildly elevated (and decreased compared with 07/04 admission), with normal CK, no acute STT changes on EKG, no arrhythmias, and normal LVEF on ECHO. NO chest pain or dyspnea. Sepsis, anxiety, CHF, anemia are among the lidely contirbutors to demand ischemia. Chronci left LE edema post-CVA. Code(s): R74.8 - ABNORMAL LEVELS OF OTHER SERUM ENZYMES (6) Dehydration Assessment/Plan: IVF; f/u BUN?Cr. F/u with urologist. Code(s): E86.0 - DEHYDRATION (7) Renal dysfunction Code(s): N28.9 - DISORDER OF KIDNEY AND URETER, UNSPECIFIED (8) CVA (cerebrovascular accident) Code(s): I63.9 - CEREBRAL INFARCTION, UNSPECIFIED (9) Anemia Code(s): D64.9 - ANEMIA, UNSPECIFIED
[2018-08-28] MEDS ORDERED: BUPIVACAINE HCL/PF 0.5% (5MG/ML) 10 ML VIAL ONE (13:02)
[2018-08-28] MEDS ORDERED: PROPOFOL 20 ML ONE (13:18)
[2018-08-28] MEDS ORDERED: ONDANSETRON 4 MG/2 ML VIAL IVPUSH PRN ×2 (13:22→14:47)
--- NOTE | 2018-08-28 13:47 | OP ---
Operative Note - Note: Operative Date: 08/28/18 Pre-Operative Diagnosis: BPH/retention Operation: cysto/TURVP Findings: BPH/bladder stones Post-Operative Diagnosis: Same as Pre-op Surgeon: Umer Thomas Anesthesia: General Estimated Blood Loss (mls): 5 Drains & Tubes with Location: 24fr burt Operative Report Dictated: Yes
[2018-08-28] MEDS: LACTATED RINGERS SOLUTION 1,000 ML/1,000 ML INFUS.BAG IV SCH (16:40)
[2018-08-28] MEDS: ACETAMINOPHEN 325 MG TABLET (FP) PO PRN (18:59)
[2018-08-28] MEDS ORDERED: PT OWN MED DRAWER 7, Y5N ONE (21:20)
[2018-08-28] MEDS: OXYBUTYNIN CHLORIDE 5 MG TABLET PO SCH (21:28)
[2018-08-28] MEDS: RANITIDINE HCL 150 MG TABLET (FP) PO SCH (21:28)
[2018-08-28] MEDS: TERAZOSIN HCL 1 MG CAPSULE PO SCH (21:28)
[2018-08-28] MEDS: LIDOCAINE PATCH REMOVAL MC SCH (21:29)
[2018-08-28] MEDS ORDERED: LIDOCAINE PATCH REMOVAL MC SCH (22:00)
[2018-08-28 23:47] VITALS: BMI 30.1
[2018-08-29] MEDS ORDERED: IBUPROFEN 800 MG/8 ML IJ IVPB SCH (02:00)
[2018-08-29] MEDS ORDERED: PIPERACILLIN/TAZOBACTAM 2.25 GM VIAL IVPB ONE ×4 (02:15→17:25)
[2018-08-29] MEDS ORDERED: DEXTROSE 5%-WATER - 50 ML IVPB ONE ×4 (02:15→17:25)
[2018-08-29] MEDS: PIPERACILLIN/TAZOB 2.25 GM 2.25 GM in DEXTROSE 5%-WATER - 50 ML IVPB SCH ×3 (02:25→17:32)
[2018-08-29] MEDS: LACTATED RINGERS SOLUTION 1,000 ML/1,000 ML INFUS.BAG IV SCH (06:07)
--- NOTE | 2018-08-29 08:47 | PN ---
Progress Note (short form) - Note Progress Note: Vital Signs Period Temp Pulse Resp BP Sys/Leon Pulse Ox Last 24 Hr 97.7 F-98.2 F 50-80 14-20 107-136/44-77 95-99 S1S2 RRR Lungs cta ant abd soft, +BS burt draining pink urine + + pedal edema awake, alert, oriented to place, person and year stage 2 sacral ulcer imp 88 yo m with pmh of cva with mild left arm weakness, HTN, high cholesterol BPH with indwelling burt since this May 2018 was admitted in June for Pseudomonas UTI now admitted for severe dehydration prerenal azotemia UTI with indwelling Burt +- pneumonia, comparison to June chest xray actually shows improvement elbow pain, arthralgia, better on prednisone iv antibiotic as per ID s/p TURVP/cysto yesterday-did well dc burt tomorrow dc iv fluids needs aggressive physical therapy d/w daughter at length over the phone
--- NOTE | 2018-08-29 09:07 | PN ---
Progress Note (short form) - Note Progress Note: afebrile urine pink Abd soft some burt pain s/p TURP d/c burt in am tomorrow for voiding trial Problem List - Problems (1) Urinary retention due to benign prostatic hyperplasia Code(s): N40.1 - BENIGN PROSTATIC HYPERPLASIA WITH LOWER URINARY TRACT SYMP; R33.8 - OTHER RETENTION OF URINE
[2018-08-29 09:40] LABS: BASO % 0.5 % (0-2.0); EOS % 1.6 % (0-4.5); HEMATOCRIT 29.6 % (35.4-49); HEMOGLOBIN 10.1 GM/dL (11.7-16.9); LYMPH % 8.9 % (8-40); MCH 29.7 pg (25.7-33.7); MCHC 34.1 g/dl (32.0-35.9); MEAN CELL VOLUME 87.1 fl (80-96); MEAN PLT VOLUME 9.4 fl (7.5-11.1); MONO % 5.6 % (3.8-10.2); NEUT % 83.4 % (42.8-82.8); PLATELET COUNT 287 K/MM3 (134-434); RDW 16.9 % (11.9-15.9); WHITE BLOOD COUNT 12.2 K/mm3 (4.0-10.0)
[2018-08-29] MEDS ORDERED: PT OWN MED DRAWER 7, Y5N ONE ×3 (10:12→20:52)
[2018-08-29 10:15] LABS: ALBUMIN 1.8 g/dl (3.4-5.0); ALK PHOS 183 U/L (45-117); ANION GAP 6 MMOL/L (8-16); BILIRUBIN,TOTAL 0.2 mg/dL (0.2-1); BLOOD UREA NITROGEN 69 mg/dL (7-18); CALCIUM 8.7 mg/dL (8.5-10.1); CHLORIDE 117 mmol/L (98-107); CO2 23 mmol/L (21-32); GLUCOSE,RANDOM 152 mg/dL (74-106); POTASSIUM 5.2 mmol/L (3.5-5.1); SGOT/AST 62 U/L (15-37); SGPT/ALT 72 U/L (13-61); SODIUM 145 mmol/L (136-145); TOT PROT 4.5 g/dl (6.4-8.2)
[2018-08-29] MEDS: OXYBUTYNIN CHLORIDE 5 MG TABLET PO SCH ×2 (10:41→21:10)
[2018-08-29] MEDS: MULTIVITAMINS (DAILY MVI) TABLET (FP) PO SCH (10:41)
[2018-08-29] MEDS: LIDOCAINE 5% TOPICAL PATCH TP SCH (10:42)
[2018-08-29] MEDS: SILVER SULFADIAZINE 1% TOP CREAM 400 GM JAR TP SCH (10:46)
[2018-08-29 13:58] LABS: ANISOCYTOSIS 1+; MACROCYTOSIS 0; OVALOCYTE 1+; PLATELET ESTIMATE NORMAL; TEAR DROP CELLS 1+
[2018-08-29] MEDS: ACETAMINOPHEN 325 MG TABLET (FP) PO PRN (17:31)
[2018-08-29] MEDS ORDERED: oxyCODONE HCL 5 MG TABLET PO ONE (19:40)
[2018-08-29] MEDS: TERAZOSIN HCL 1 MG CAPSULE PO SCH (21:10)
[2018-08-29] MEDS: LIDOCAINE PATCH REMOVAL MC SCH (21:10)
[2018-08-29] MEDS: RANITIDINE HCL 150 MG TABLET (FP) PO SCH (21:10)
[2018-08-30] MEDS ORDERED: PIPERACILLIN/TAZOBACTAM 2.25 GM VIAL IVPB ONE ×3 (01:27→16:20)
[2018-08-30] MEDS ORDERED: DEXTROSE 5%-WATER - 50 ML IVPB ONE ×3 (01:27→16:20)
[2018-08-30] MEDS: PIPERACILLIN/TAZOB 2.25 GM 2.25 GM in DEXTROSE 5%-WATER - 50 ML IVPB SCH ×3 (01:53→17:19)
[2018-08-30] MEDS: ACETAMINOPHEN 325 MG TABLET (FP) PO PRN ×2 (04:53→23:15)
[2018-08-30 08:12] LABS: BASO % 0.6 % (0-2.0); EOS % 3.1 % (0-4.5); HEMATOCRIT 30.7 % (35.4-49); HEMOGLOBIN 10.4 GM/dL (11.7-16.9); LYMPH % 10.9 % (8-40); MCH 29.2 pg (25.7-33.7); MCHC 33.9 g/dl (32.0-35.9); MEAN CELL VOLUME 86.3 fl (80-96); MEAN PLT VOLUME 9.3 fl (7.5-11.1); MONO % 5.2 % (3.8-10.2); NEUT % 80.2 % (42.8-82.8); PLATELET COUNT 307 K/MM3 (134-434); RBC 3.56 M/mm3 (4.00-5.60); RDW 17.1 % (11.9-15.9); WHITE BLOOD COUNT 11.1 K/mm3 (4.0-10.0)
[2018-08-30 08:40] LABS: ALBUMIN 1.9 g/dl (3.4-5.0); ALK PHOS 171 U/L (45-117); ANION GAP 6 MMOL/L (8-16); BILIRUBIN,TOTAL 0.2 mg/dL (0.2-1); BLOOD UREA NITROGEN 62 mg/dL (7-18); CALCIUM 8.8 mg/dL (8.5-10.1); CHLORIDE 117 mmol/L (98-107); CO2 22 mmol/L (21-32); CREATININE 1.9 mg/dL (0.55-1.3); GLUCOSE,RANDOM 117 mg/dL (74-106); POTASSIUM 4.7 mmol/L (3.5-5.1); SGOT/AST 53 U/L (15-37); SGPT/ALT 81 U/L (13-61); SODIUM 146 mmol/L (136-145); TOT PROT 4.6 g/dl (6.4-8.2)
[2018-08-30] MEDS: LIDOCAINE 5% TOPICAL PATCH TP SCH (10:01)
[2018-08-30] MEDS: OXYBUTYNIN CHLORIDE 5 MG TABLET PO SCH ×2 (10:02→21:09)
[2018-08-30] MEDS: MULTIVITAMINS (DAILY MVI) TABLET (FP) PO SCH (10:02)
[2018-08-30] MEDS: PARoxetine HCL 10 MG TABLET (FP) PO SCH (10:02)
[2018-08-30] MEDS: SILVER SULFADIAZINE 1% TOP CREAM 400 GM JAR TP SCH (10:02)
[2018-08-30] MEDS: FUROSEMIDE 20 MG TABLET (FP) PO SCH (10:02)
[2018-08-30 11:28] LABS: ANISOCYTOSIS 2+; MACROCYTOSIS 0; PLATELET ESTIMATE NORMAL
--- NOTE | 2018-08-30 15:37 | PN ---
Progress Note, Physician History of Present Illness: AWAKE, ALERT S/P TURP C/O SUPRAPUBIC PRESSURE NO DYSURIA NO C/O F/C AFEBRILE WBC IMPROVED - Current Medication List Current Medications: Active Medications Acetaminophen (Tylenol -) 650 mg PO Q6H PRN PRN Reason: PAIN Last Admin: 08/30/18 04:53 Dose: 650 mg Furosemide (Lasix -) 20 mg PO DAILY [facility] Last Admin: 08/30/18 10:02 Dose: 20 mg Piperacillin Sod/Tazobactam (Sod 2.25 gm/ Dextrose) 50 mls @ 100 mls/hr IVPB Q8H-IV [facility]; Protocol Last Admin: 08/30/18 10:02 Dose: 100 mls/hr Lidocaine (Lidoderm Patch -) 1 patch TP DAILY [facility] Last Admin: 08/30/18 10:01 Dose: 1 patch Miscellaneous (Lidoderm Patch Removal) 1 each [facility] DAILY@2200 [facility] Last Admin: 08/29/18 21:10 Dose: 1 each Multivitamins/Minerals/Vitamin C (Tab-A-Vit -) 1 tab PO DAILY [facility] Last Admin: 08/30/18 10:02 Dose: 1 tab Oxybutynin Chloride (Ditropan -) 5 mg PO BID [facility] Last Admin: 08/30/18 10:02 Dose: 5 mg Oxycodone HCl (Roxicodone -) 2.5 mg PO ONCE ONE Stop: 08/30/18 15:46 Last Admin: 08/30/18 15:28 Dose: 2.5 mg Paroxetine HCl (Paxil -) 10 mg PO DAILY [facility] Last Admin: 08/30/18 10:02 Dose: 10 mg Ranitidine HCl (Zantac -) 150 mg PO HS [facility] Last Admin: 08/29/18 21:10 Dose: 150 mg Silver Sulfadiazine (Silvadene -) 1 applic TP DAILY [facility] Last Admin: 08/30/18 10:02 Dose: 1 applic Terazosin HCl (Hytrin -) 2 mg PO HS [facility] Last Admin: 08/29/18 21:10 Dose: 2 mg - Objective Vital Signs: Vital Signs Temperature 97.4 F L 08/30/18 14:31 Pulse Rate 56 L 08/30/18 14:31 Respiratory Rate 20 08/30/18 10:00 Blood Pressure 110/53 L 08/30/18 14:31 O2 Sat by Pulse Oximetry (%) 98 08/29/18 22:00 Constitutional: Yes: No Distress Cardiovascular: Yes: Regular Rate and Rhythm, S1, S2 Respiratory: Yes: CTA Bilaterally Gastrointestinal: Yes: Normal Bowel Sounds, Soft. No: Tenderness Edema: Yes (+ L FOOT EDEMA) Labs: CBC, BMP 08/30/18 08:00 08/30/18 08:00 INR, PTT INR 1.14 (0.83-1.09) H 08/22/18 05:30 Assessment/Plan S/P TURP RECURRENT UTI HX +URINE C/S PSEUDOMONAS CKD CONTINUE ZOSYN ADDITIONAL 24HR
[2018-08-30] MEDS ORDERED: oxyCODONE HCL 5 MG TABLET PO ONE (15:45)
--- NOTE | 2018-08-30 17:03 | PN ---
Progress Note (short form) - Note Progress Note: CBC, BMP 08/30/18 08:00 08/30/18 08:00 Vital Signs Period Temp Pulse Resp BP Sys/Leon Pulse Ox Last 24 Hr 97.3 F-97.5 F 56-79 19-20 110-135/53-69 98 S1S2 RRR Lungs cta ant abd soft, +BS decreased pedal edema awake, alert, oriented to place, person and year stage 2 sacral ulcer burt dcd today, voiding small amount of urine frequently imp 88 yo m with pmh of cva with mild left arm weakness, HTN, high cholesterol BPH with indwelling burt since this May 2018 was admitted in June for Pseudomonas UTI now admitted for severe dehydration prerenal azotemia UTI with indwelling Burt +- pneumonia, comparison to June chest xray actually shows improvement elbow pain, arthralgia, better on prednisone iv antibiotic until tomorrow s/p TURVP/cysto -did well needs aggressive physical therapy d/w daughter at length dc planning
[2018-08-30] MEDS ORDERED: PT OWN MED DRAWER 7, Y5N ONE (21:04)
[2018-08-30] MEDS: TERAZOSIN HCL 1 MG CAPSULE PO SCH (21:09)
[2018-08-30] MEDS: RANITIDINE HCL 150 MG TABLET (FP) PO SCH (21:10)
[2018-08-30] MEDS: LIDOCAINE PATCH REMOVAL MC SCH (21:10)
[2018-08-31] MEDS ORDERED: PIPERACILLIN/TAZOBACTAM 2.25 GM VIAL IVPB ONE ×3 (00:53→16:45)
[2018-08-31] MEDS ORDERED: DEXTROSE 5%-WATER - 50 ML IVPB ONE ×3 (00:53→16:46)
[2018-08-31] MEDS: PIPERACILLIN/TAZOB 2.25 GM 2.25 GM in DEXTROSE 5%-WATER - 50 ML IVPB SCH ×2 (01:50→09:53)
--- NOTE | 2018-08-31 08:14 | DS ---
Physical Examination Vital Signs: Vital Signs Temperature 97.7 F 08/31/18 06:00 Pulse Rate 67 08/31/18 06:00 Respiratory Rate 19 08/31/18 06:00 Blood Pressure 129/69 08/31/18 06:00 O2 Sat by Pulse Oximetry (%) 98 08/30/18 22:00 Constitutional: Yes: No Distress, Calm Eyes: Yes: EOM Intact HENT: Yes: Normocephalic Neck: Yes: Trachea Midline Cardiovascular: Yes: Regular Rate and Rhythm Respiratory: Yes: CTA Bilaterally Gastrointestinal: Yes: Normal Bowel Sounds, Soft Musculoskeletal: Yes: WNL Edema: Yes Edema: LLE: 1+ (pedal), RLE: 1+ (pedal) Peripheral Pulses WNL: Yes Integumentary: Yes: Other (stage 2 sacral ulcer postop hematoma over lower abdominal wall) Psychiatric: Yes: WNL Labs: CBC, BMP 08/30/18 08:00 08/30/18 08:00 Discharge Summary Reason For Visit: UTI/SEPSIS Current Active Problems AURELIA (acute kidney injury) (Acute) Anemia (Acute) Atelectasis, left (Acute) CVA (cerebrovascular accident) (Acute) Dehydration (Acute) Depression (Acute) Elevated troponin (Acute) Prophylactic measure (Acute) Renal dysfunction (Acute) Sepsis (Acute) UTI (urinary tract infection) (Acute) UTI (urinary tract infection) due to urinary indwelling catheter (Acute) Hospital Course: 88 yo m with pmh of cva with mild left arm weakness, HTN, high cholesterol BPH with indwelling burt since this May 2018 admitted for severe dehydration AURELIA, UTI presumptive pseudomonas completed iv zosyn for 10 days s/p TURVP/cysto on 08.28.18 burt discontinued yesterday, voiding freely, incontinent needs aggressive physical therapy d/w daughter at length dc planning to STR Condition: Fair - Instructions Diet, Activity, Other Instructions: dr Meza in 2 weeks check cbc, cmp weekly Disposition: [facility]ILITY - Home Medications Comprehensive Discharge Medication List: Ambulatory Orders Acetaminophen 650 mg PO Q4H 08/21/18 Acetaminophen [Tylenol .Extra-Strength -] 500 mg PO DAILY 08/21/18 Ascorbic Acid [Vitamin C -] 500 mg PO DAILY 08/21/18 Aspirin [Aspirin EC] 81 mg PO DAILY 08/21/18 Furosemide 40 mg PO DAILY 08/21/18 Melatonin 3 mg PO HS 08/21/18 Multivitamins [Multivit ([facility] Formulary)] 1 tab PO DAILY 08/21/18 Ranitidine [Zantac -] 150 mg PO HS 08/21/18 Silver Sulfadiazine 1% Top Cr [Silvadene -] 1 applic TP DAILY 08/21/18 Simvastatin 20 mg PO DAILY 08/21/18 Terazosin HCl 2 mg PO HS 08/21/18 Oxybutynin Chloride [Ditropan -] 5 mg PO BID tablet 08/31/18 Paroxetine HCl [Paxil -] 10 mg PO DAILY tablet 08/31/18
[2018-08-31] MEDS ORDERED: PT OWN MED DRAWER 7, Y5N ONE (09:48)
[2018-08-31] MEDS: PARoxetine HCL 10 MG TABLET (FP) PO SCH (09:53)
[2018-08-31] MEDS: MULTIVITAMINS (DAILY MVI) TABLET (FP) PO SCH (09:53)
[2018-08-31] MEDS: ACETAMINOPHEN 325 MG TABLET (FP) PO PRN (10:41)
[2018-08-31] MEDS: LIDOCAINE 5% TOPICAL PATCH TP SCH (10:42)
[2018-08-31] MEDS: OXYBUTYNIN CHLORIDE 5 MG TABLET PO SCH (10:43)
[2018-08-31] MEDS: FUROSEMIDE 20 MG TABLET (FP) PO SCH (10:43)
[2018-08-31] MEDS: SILVER SULFADIAZINE 1% TOP CREAM 400 GM JAR TP SCH (10:55)
[2018-08-31 14:07] VITALS: BP 117/51; PULSE 60; TEMP 97.6
--- NOTE | 2018-08-31 17:52 | PATH ---
Surgical Pathology Report Patient Name: GISSELLE SMITH JR [facility]. Rec. #: [id number] /Age/Gender: 1930 (Age: 88) / M Account: [id number] Location: [address] [place] [address] Taken: 08/28/2018 Received: 08/29/2018 Reported: 08/31/2018 Physicians: Saige Al M.D. Specimen(s) Received BLADDER CALCULI Clinical History BPH, urinary retention Final Diagnosis BLADDER, STONES, CYSTOSCOPY: FRAGMENTS OF FIBROMUSCULAR TISSUE WITH CAUTERIZED ARTIFACT IN A BACKGROUND OF CELLULAR DEBRIS AND FEW CRYSTALS. BLADDER CALCULI. MACROSCOPIC DIAGNOSIS. Electronically Signed Rosalina Valles M.D. Gross Description Received in formalin labeled "bladder stones," is a 1.0 x 0.8 x 0.2 cm aggregate of barkley soft tissue fragments admixed with yellow, possible fragmented calculi. The soft tissue is submitted in toto in one cassette. The fragmented calculi are dried and sent for chemical analysis. /08/29/2018 [facility]08/29/2018
--- NOTE | 2018-09-12 00:05 | OP ---
DATE OF OPERATION: 08/28/2018 NAME OF PROCEDURE: Cystoscopy, transurethral vaporization of prostate and removal of bladder stones. SURGEON: Hector Ponce M.D. INDICATION: The patient is an 88-year-old male with persistent urinary retention who is taken to OR for cystoscopy and transurethral vaporization of prostate. DESCRIPTION OF PROCEDURE: Patient was taken to the OR and placed supine on the operating table. After cardiac monitoring initiated given. He was prepped and draped in the dorsal lithotomy position. The existing Starr was then removed. The 20 sheath rigid cystoscope was inserted into the urethra without difficulty. The urethra was normal was normal, prostatic urethra was visualized. There were multiple small stones noted on the bladder, and these were removed with the cystoscope with irrigation and sent to pathology for analysis. Then using the bipolar rollerball electrode, the prostate lateral lobe tissue was vaporized circumferentially into wide open channels created. There was no vaporization or resection within 1 cm of the verumontanum to minimize the chance of incontinence. At the end of the procedure, a wide open channel was noted. The resectoscope was then removed, and a 22 Wolof Starr was then placed in to straight drainage, clear urine was retrieved. Patient then awoken from anesthesia and transferred to the recovery room in stable condition. There were no complications. Estimated blood loss was minimal. HECTOR PONCE M.D. BHASKAR/[id number]
== END 2018-08-31 17:52 | DRG 665 ==
LOC: JER 12:51 → JERBED 17:26 → J4W 08-23 01:26 → J6S 08-25 16:47
PROVIDERS: ADMIT Internal Medicine; ATTEND Internal Medicine
PROC: 0TCB8ZZ Extirpation of Matter from Bladder, Via Natural or Artificial Opening Endoscopic (ICD-10-PCS; 2018-08-28)
PROC: 0V508ZZ Destruction of Prostate, Via Natural or Artificial Opening Endoscopic (ICD-10-PCS; principal; 2018-08-28 12:30)
DX: T83.511A Infection and inflammatory reaction due to indwelling urethral catheter, initial encounter (principal); L89.153 Pressure ulcer of sacral region, stage 3; A41.9 Sepsis, unspecified organism; N17.9 Acute kidney failure, unspecified; J98.11 Atelectasis; I24.8 Other forms of acute ischemic heart disease; I69.354 Hemiplegia and hemiparesis following cerebral infarction affecting left non-dominant side; N21.0 Calculus in bladder; N39.0 Urinary tract infection, site not specified; N40.1 Benign prostatic hyperplasia with lower urinary tract symptoms; Y84.6 Urinary catheterization as the cause of abnormal reaction of the patient, or of later complication, without mention of misadventure at the time of the procedure; E86.0 Dehydration; R33.9 Retention of urine, unspecified; I95.9 Hypotension, unspecified; E78.5 Hyperlipidemia, unspecified; I10 Essential (primary) hypertension; R73.03 Prediabetes; N40.0 Benign prostatic hyperplasia without lower urinary tract symptoms; F31.9 Bipolar disorder, unspecified; F41.9 Anxiety disorder, unspecified; Z87.891 Personal history of nicotine dependence; B96.5 Pseudomonas (aeruginosa) (mallei) (pseudomallei) as the cause of diseases classified elsewhere; D64.9 Anemia, unspecified; M10.9 Gout, unspecified
CPT/HCPCS: 36415; 36600; 71045-TC-FY; 76775-TC; 80053; 81003; 82360; 82550; 82803; 83605; 83735; 83880; 84100; 84484; 84550; 85025; 85610; 85651; 85730; 86140; 87040; 87086; 88305-TC; 93005; 93010; 94640; 94760; 97116-GP; 97161-GP; 99285-25; G0480; J0131; J7030